=== PATIENT | female | born 1955 | race Caucasian/White ===

== ENCOUNTER → 2017-11-01 | Outpatient (CLI) | payer BC | END | disposition home or self-care (01) | LOC: NM 08:50 | DX: K90.0 Celiac disease (principal); E11.9 Type 2 diabetes mellitus without complications; Z79.01 Long term (current) use of anticoagulants; Z87.891 Personal history of nicotine dependence | CPT/HCPCS: 78452; 93017; 96374; 96376; A9500 ==

== ENCOUNTER 2017-11-07 06:34 | Inpatient (IN) | payer BC ==
[~2017-11-07] VITALS: Ht 162.6 cm; Wt 97.5 kg
[2017-11-07] VITALS (19 sets, daily range): BP systolic 83–158; BP diastolic 49–75
[2017-11-07] MEDS ORDERED: IODIXANOL 320 MG/ML 100 ML VIAL. ONE (07:10)
[2017-11-07] MEDS ORDERED: LIDOCAINE 1% PF 30 ML VIAL. ONE (07:10)
[2017-11-07] MEDS ORDERED: HEPARIN for ARTERIAL LINE 1,500 ML ONE (07:10)
[2017-11-07] MEDS ORDERED: MIDAZOLAM HCL/PF 5 MG/5 ML VIAL. ONE (07:19)
[2017-11-07] MEDS ORDERED: fentaNYL PF VIAL 100 MCG/2 ML VIAL ONE (07:19)
[2017-11-07] MEDS ORDERED: METF100010 PO (07:21)
[2017-11-07] MEDS ORDERED: OMEP20CA9 PO (07:21)
[2017-11-07] MEDS ORDERED: LEVO100T5 PO (07:21)
[2017-11-07] MEDS ORDERED: CHOL200074 PO (07:21)
[2017-11-07] MEDS ORDERED: LORA10TA55 PO (07:21)
[2017-11-07] MEDS ORDERED: ATORVASTATIN CA80 MG PO (07:21)
[2017-11-07] MEDS ORDERED: LORA10TA3 PO (07:21)
[2017-11-07] MEDS ORDERED: ASPI-630 PO (07:21)
[2017-11-07 07:30] LABS: HEMATOCRIT 41.1 % (36.0-47.0); HEMOGLOBIN 14.2 g/dL (12.0-15.5); RED BLOOD COUNT 4.88 x10^6/uL (3.50-5.40); RED CELL DISTRIBUTION WIDTH 13.5 % (11.5-14.5); WHITE BLOOD COUNT 6.5 x10^3/uL (4.0-11.0)
[2017-11-07] MEDS ORDERED: NITROGLYCERIN 200 MCG/2 ML SYRINGE FOR CATH/VASC LAB. ONE (07:31)
[2017-11-07] MEDS ORDERED: HEPARIN for IV BOLUS 10,000 UNIT/10 ML VIAL. ONE (07:31)
[2017-11-07] MEDS ORDERED: VERAPAMIL 5 MG/2 ML VIAL. ONE (07:31)
[2017-11-07 07:35] LABS: CALCIUM 9.5 mg/dL (8.5-10.1); CREATININE 0.7 mg/dL (0.6-1.0); GFR 84.2; POTASSIUM 4.2 mmol/L (3.5-5.1)
[2017-11-07 07:44] LABS: PROTHROMBIN TIME PATIENT 11.7 SEC (11.7-14.0)
--- NOTE | 2017-11-07 08:15 | PDOC ---
MODERATE SEDATION ASSESSMENT RISKS/ALTERNATIVES Risks/Alternatives Risks and alternatives of this type of sedation and procedure discussed with: RISK/ALTERNATIVES: Patient H & P ON CHART H & P H & P on chart and reviewed for co-morbid conditions and appropriate labs. H&P ON CHART: Yes STATUS PREG STATUS ASSESSED: Yes MEDS/ALLERGIES REVIEWED Meds/Allergies Reviewed Medications and Allergies including time and route of recently administered narcotics and sedatives. MEDS/ALLERGIES REVIEWED: Yes ASA RATING ASA RATING: II AIRWAY ASSESSMENT Airway Assessment Airway patency, oral function limitations, presence of caps, crowns, dentures, partials, and ability to extend neck assessed. AIRWAY ASSESSMENT: Yes MALLAMPATI SCORE MALLAMPATI SCORE: II PRE-SEDATION ASSESSMENT PRE-SEDATION ASSESSMENT: Yes BROOKE BETHEA MD Nov 07, 2017 08:15
[2017-11-07] MEDS ORDERED: fentaNYL PF VIAL 100 MCG/2 ML VIAL IV ONE (08:30)
[2017-11-07] MEDS ORDERED: CONTRAST GIVEN. MC PRN (08:30)
[2017-11-07] MEDS ORDERED: LIDOCAINE 2% 20 ML VIAL. IJ ONE (08:30)
[2017-11-07] MEDS ORDERED: MIDAZOLAM HCL/PF 5 MG/5 ML VIAL. IV ONE (08:30)
[2017-11-07] MEDS ORDERED: IODIXANOL 320 MG/ML 100 ML VIAL. IART ONE (08:30)
[2017-11-07] MEDS ORDERED: LIDOCAINE 1% PF 30 ML VIAL. INJ ONE (09:15)
[2017-11-07] MEDS ORDERED: 0.9 % SODIUM CHLORIDE 10 ML DISP.SYRIN. IV PRN (10:00)
[2017-11-07] MEDS ORDERED: NITROGLYCERIN SUBLINGUAL 0.4 MG BOTTLE OF 25. SL PRN (10:00)
[2017-11-07] MEDS ORDERED: LISINOPRIL 5 MG TABLET. PO SCH (10:15)
[2017-11-07] MEDS: LEVOTHYROXINE 100 MCG TABLET PO SCH (10:30)
[2017-11-07] MEDS: ACETAMINOPHEN 325 MG TABLET. PO PRN (10:31)
[2017-11-07] MEDS: METOPROLOL TART IMMED RELEASE 25 MG TABLET. PO SCH ×2 (10:31→20:59)
[2017-11-07] MEDS: IV NORMAL SALINE 1000ML BAG 1,000 ML IV SCH (10:33)
[2017-11-07] MEDS: ASPIRIN ENTERIC COATED 81 MG TABLET.DR. PO SCH (13:20)
--- NOTE | 2017-11-07 14:52 | PDOC2 ---
CONSULT Date of Consult Date of Consult DATE: 11/07/17 TIME: 14:32 Reason for Consult Reason for Consult: Angina Referring Physician Referring Physician: Dr Stewart Identification/Chief Complaint Chief Complaint Angina Source Source: Chart review, Patient History of Present Illness Reason for Visit: Patient is a 62 year female with a history of diabetes and strong family history of premature IHD and sudden cardiac who presents with stable angina. For the past 4 months she complains of atypical chest pain, SOB and fatigue, mostly on exertion. A subsequent MPI demonstrated reversible inferior ischemia. Check coronary angiogram today which demonstrated a very tight proximal to mid LAD stenosis and a tight mid RCA lesion. Her LV function is preserved. I was consulted to consider the patient for surgical coronary revascularization. Past Medical History Cardiovascular: Hyperlipidemia Pulmonary: No pertinent hx GI: No pertinent hx Hepatobiliary: No pertinent hx Psych: No pertinent hx Rheumatologic: No pertinent hx Infectious disease: No pertinent hx ENT: No pertinent hx Renal/: No pertinent hx Endocrine: Diabetes Dermatology: No pertinent hx Past Surgical History Past Surgical History: Family History Family History: Coronary Artery Disease Social History No ALCOHOL: none Drugs: None Lives: with Family Current Medications Current Medications Current Medications Iodixanol (Visipaque 320) 100 ml STK-MED ONCE .ROUTE ; Start 11/07/17 at 07:10; Stop 11/07/17 at 07:11; Status DC Lidocaine HCl (Lidocaine 1% Pf) 30 ml STK-MED ONCE .ROUTE ; Start 11/07/17 at 07: 10; Stop 11/07/17 at 07:11; Status DC Heparin Sodium/ Sodium Chloride 1,500 ml @ As Directed STK-MED ONCE .ROUTE ; Start 11/07/17 at 07:10; Stop 11/07/17 at 07:11; Status DC Fentanyl Citrate (Fentanyl 2ml Vial) 100 mcg STK-MED ONCE .ROUTE ; Start at 07:19; Stop 11/07/17 at 07:20; Status DC Midazolam HCl (Versed) 5 mg STK-MED ONCE .ROUTE ; Start 11/07/17 at 07:19; Stop 11/07/17 at 07:20; Status DC Heparin Sodium (Porcine) (Heparin Sodium) 10,000 unit STK-MED ONCE .ROUTE ; Start 11/07/17 at 07:31; Stop 11/07/17 at 07:33; Status DC Verapamil HCl (Verapamil) 5 mg STK-MED ONCE .ROUTE ; Start 11/07/17 at 07:31; Stop 11/07/17 at 07:33; Status DC Nitroglycerin (Nitroglycerin) 200 mcg STK-MED ONCE .ROUTE ; Start 11/07/17 at 07: 31; Stop 11/07/17 at 07:33; Status DC Heparin Sodium/ Sodium Chloride (HEPARIN for ARTERIAL LINE FLUSH) 1,000 unit 1X ONCE IART Last administered on 11/07/17at 09:06; Start 11/07/17 at 08:30; Stop 11/07/17 at 08:31; Status DC Heparin Sodium/ Sodium Chloride (HEPARIN for ARTERIAL LINE FLUSH) 1,000 unit 1X ONCE IART Last administered on 11/07/17at 09:06; Start 11/07/17 at 08:30; Stop 11/07/17 at 08:31; Status DC Midazolam HCl (Versed) 5 mg 1X ONCE IV Last administered on 11/07/17at 09:06; Start 11/07/17 at 08:30; Stop 11/07/17 at 08:31; Status DC Fentanyl Citrate (Fentanyl 2ml Vial) 100 mcg 1X ONCE IV Last administered on at 09:07; Start 11/07/17 at 08:30; Stop 11/07/17 at 08:31; Status DC Iodixanol (Visipaque 320) 100 ml 1X ONCE IART Last administered on 11/07/17at 09 :07; Start 11/07/17 at 08:30; Stop 11/07/17 at 08:31; Status DC Lidocaine HCl 20 ml 1X ONCE IJ ; Start 11/07/17 at 08:30; Stop 11/07/17 at 09:08 ; Status DC Info (CONTRAST GIVEN -- Rx MONITORING) 1 each PRN DAILY PRN MC SEE COMMENTS; Start 11/07/17 at 08:30; Stop 11/09/17 at 08:29 Lidocaine HCl (Lidocaine 1% Pf) 20 ml 1X ONCE INJ Last administered on at 09:15; Start 11/07/17 at 09:15; Stop 11/07/17 at 09:16; Status DC Sodium Chloride (Normal Saline Flush) 3 ml QSHIFT PRN IV AFTER MEDS AND BLOOD DRAWS; Start 11/07/17 at 10:00 Sodium Chloride 1,000 ml @ 60 mls/hr [id number] IV Last administered on 11/07/17at 10:33; Start 11/07/17 at 09:52 Aspirin (Ecotrin) 81 mg DAILYWBKFT PO Last administered on 11/07/17at 13:20; Start 11/07/17 at 10:15 Metoprolol Tartrate (Lopressor) 12.5 mg BID PO Last administered on 11/07/17at 10 :31; Start 11/07/17 at 10:15 Lisinopril (Prinivil) 5 mg DAILY PO Last administered on 11/07/17at 10:32; Start 11/07/17 at 10:15 Atorvastatin Calcium (Lipitor) 80 mg QHS PO ; Start 11/07/17 at 21:00 Acetaminophen (Tylenol) 650 mg PRN Q6HRS PRN PO MILD PAIN Last administered on 11/07/17at 10:31; Start 11/07/17 at 10:00 Nitroglycerin (Nitrostat) 0.4 mg PRN Q5MIN PRN SL CHEST PAIN; Start 11/07/17 at 10:00 Levothyroxine Sodium (Synthroid) 100 mcg DAILY06 PO ; Start 11/07/17 at 10:30 Active Scripts Active Reported Loratadine 10 Mg Tablet 1 Tab PO DAILY Loratadine 10 Mg Tab.rapdis 10 Mg PO Vitamin D-3 (Cholecalciferol (Vitamin D3)) 2,000 Unit Capsule 2,000 Unit PO Aspirin 81 Mg Tab.chew 1 Tab PO DAILY Omeprazole 20 Mg Capsule.dr 1 Cap PO DAILY Metformin Hcl Er (Metformin Hcl) 1,000 Mg Tab.er.24 1,000 Mg PO DAILYWBKFT Atorvastatin Calcium 80 Mg Tablet 80 Mg PO DAILY Levothyroxine Sodium 100 Mcg Tablet 100 Mcg PO DAILYAC Allergies Allergies: Coded Allergies: codeine (Verified Allergy, Intermediate, Rash, 11/07/17) ROS General: No: Chills, Night Sweats, Fatigue, Malaise, Appetite PSYCHOLOGICAL ROS: No: Anxiety, Behavioral Disorder, Concentration difficultie , Decreased libido, Depression, Disorientation, Hallucinations, Hostility, Irritablity, Memory difficulties, Mood Swings, Obsessive thoughts, Physical abuse, Sexual abuse, Sleep disturbances, Suicidal ideation Eyes: No Blurry vision, No Decreased vision, No Double vision, No Dry eyes, No Excessive tearing, No Eye Pain, No Itchy Eyes, No Loss of vision, No Photophobia , No Scotomata, No Uses contacts, No Uses glasses HEENT: No: Heacaches, Visual Changes, Hearing change, Nasal congestion, Nasal discharge, Oral lesions, Sinus pain, Sore Throat, Epistaxis, Sneezing, Snoring, Tinnitus, Vertigo, Vocal changes ALLERGY AND IMMUNOLOGY: No: Hives, Insect Bite Sensitivity, Itchy/Watery Eyes, Nasal Congestion, Post Nasal Drip, Seasonal Allergies Hematological and Lymphatic: No: Bleeding Problems, Blood Clots, Blood Transfusions, Brusing, Night Sweats, Pallor, Swollen Lymph Nodes ENDOCRINE: No: Breast Changes, Galactorrhea, Hair Pattern Changes, Hot Flashes , Malaise/lethargy, Mood Swings, Palpitations, Polydipsia/polyuria, Skin Changes , Temperature Intolerance, Unexpected Weight Changes Respiratory: YES: Shortness of breath; No: Cough, Hemoptysis, Orthopnea, Pleuritic Pain, SOB with excertion, Sputum Changes, Stridor, Tachypnea, Wheezing Cardiovascular: yes Chest Pain; No Palpitations, No Orthopnea, No Paroxysmal Noc. Dyspnea, No Edema, No Lt Headedness Gastrointestinal: No Nausea, No Vomiting, No Abdominal Pain, No Diarrhea, No Constipation, No Melena, No Hematochezia Genitourinary: No Dysuria, No Frequency, No Incontinence, No Hematuria, No Retention, No Discharge, No Urgency, No Pain, No Flank Pain Musculoskeletal: No Gait Disturbance, No Joint Pain, No Joint Stiffness, No Joint Swelling, No Muscle Pain, No Muscular Weakness, No Pain In:, No Swelling In: Neurological: No Behavorial Changes, No Bowel/Bladder ControlChng, No Confusion , No Dizziness, No Gait Disturbance, No Headaches, No Impaired Coord/balance, No Memory Loss, No Numbness/Tingling, No Seizures, No Speech Problems, No Tremors, No Visual Changes, No Weakness Skin: No Dry Skin, No Eczema, No Hair Changes, No Lumps, No Mole Changes, No Mottling, No Nail Changes, No Pruritus, No Rash, No Skin Lesion Changes, No Acne Physical Exam General: Alert, Oriented X3, No acute distress HEENT: Atraumatic, PERRLA Lungs: Clear to auscultation Heart: Regular rate, Normal S1, Normal S2, No murmurs Abdomen: Soft, No tenderness Skin: No significant lesion Neuro: Normal gait, Normal speech, Strength at 5/5 X4 ext, Normal tone, Sensation intact, Cranial nerves 3-12 NL, Reflexes 2+ Psych/Mental Status: Mental status NL MUSCULOSKELETAL: No deformity Vitals VITALS Vital Signs Date Time Temp Pulse Resp B/P (MAP) Pulse Ox O2 Delivery O2 Flow Rate FiO2 11/07/17 13:15 63 115/56 (75) 97 Room Air 11/07/17 11:04 98.0 18 98.0 Labs Labs Laboratory Tests Test 11/07/17 07:08 11/07/17 11:36 White Blood Count 6.5 x10^3/uL (4.0-11.0) Red Blood Count 4.88 x10^6/uL (3.50-5.40) Hemoglobin 14.2 g/dL (12.0-15.5) Hematocrit 41.1 % (36.0-47.0) Mean Corpuscular Volume 84 fL (79-100) Mean Corpuscular Hemoglobin 29 pg (25-35) Mean Corpuscular Hemoglobin Concent 35 g/dL (31-37) Red Cell Distribution Width 13.5 % (11.5-14.5) Platelet Count 287 x10^3/uL (140-400) Prothrombin Time 11.7 SEC (11.7-14.0) Prothromb Time International Ratio 0.9 (0.8-1.1) Sodium Level 138 mmol/L (136-145) Potassium Level 4.2 mmol/L (3.5-5.1) Chloride Level 104 mmol/L (98-107) Carbon Dioxide Level 27 mmol/L (21-32) Anion Gap 7 (6-14) Blood Urea Nitrogen 17 mg/dL (7-20) Creatinine 0.7 mg/dL (0.6-1.0) Estimated GFR (Cockcroft-Gault) 84.2 Glucose Level 132 mg/dL (70-99) Calcium Level 9.5 mg/dL (8.5-10.1) Glucose (Fingerstick) 111 mg/dL (70-99) Laboratory Tests Test 11/07/17 07:08 8/8/18 11:36 White Blood Count 6.5 x10^3/uL (4.0-11.0) Red Blood Count 4.88 x10^6/uL (3.50-5.40) Hemoglobin 14.2 g/dL (12.0-15.5) Hematocrit 41.1 % (36.0-47.0) Mean Corpuscular Volume 84 fL (79-100) Mean Corpuscular Hemoglobin 29 pg (25-35) Mean Corpuscular Hemoglobin Concent 35 g/dL (31-37) Red Cell Distribution Width 13.5 % (11.5-14.5) Platelet Count 287 x10^3/uL (140-400) Prothrombin Time 11.7 SEC (11.7-14.0) Prothromb Time International Ratio 0.9 (0.8-1.1) Sodium Level 138 mmol/L (136-145) Potassium Level 4.2 mmol/L (3.5-5.1) Chloride Level 104 mmol/L (98-107) Carbon Dioxide Level 27 mmol/L (21-32) Anion Gap 7 (6-14) Blood Urea Nitrogen 17 mg/dL (7-20) Creatinine 0.7 mg/dL (0.6-1.0) Estimated GFR (Cockcroft-Gault) 84.2 Glucose Level 132 mg/dL (70-99) Calcium Level 9.5 mg/dL (8.5-10.1) Glucose (Fingerstick) 111 mg/dL (70-99) Images Images MPI 1. Good exercise tolerance. 2. No EKG evidence of stress-induced ischemia. 3. Nuclear imaging shows a moderate area of reversible ischemia in the inferior lateral wall. 4. Left ventricular ejection fraction of 53%. 5. Moderate to moderately high risk Lexiscan nuclear stress test. Assessment/Plan Assessment/Plan 62-year-old female with diabetes and a strong family history of premature ischemic heart disease and sudden cardiac who presents with atypical symptoms and an MPI demonstrating reversible inferior ischemia. LHC demonstrated a 90% proximal to mid LAD stenosis, and a 90% lesion in the proximal RCA. LV function is preserved. Given the patient's tight proximal LAD stenosis and history of diabetes, I think CABG would be a reasonable option. I discussed the risks which include but are not limited to mortality 1%, stroke 1%, renal failure and requiring dialysis 1%, VDRF 5%, wound infection 5%, pneumonia 5%, re-sternotomy for bleeding 5%, perioperative FL 5%, arrhythmias/H fibrillation 20-30%. The patient would like to consider her options, although she appears to be leaning towards CABG. If she agrees to CABG we will proceed on Thursday, November 092017. Will obtain a echo, carotid duplex, noncontrast CT chest, vein mapping. She will need two grafts, CLARK to LAD, SVG to RCA. GLORY TAVARES MD Nov 07, 2017 14:52
[2017-11-07] MEDS: PANTOPRAZOLE 40 MG TABLET.DR. PO SCH (15:00)
[2017-11-07] MEDS: CETIRIZINE HCL 10 MG TABLET. PO SCH (15:00)
[2017-11-07] MEDS ORDERED: DEXTROSE 50% 25 GM / 50ML DISP.SYRIN. IV PRN (16:00)
[2017-11-07 16:14] LABS: BASO % 1 % (0-3); EOS # 0.1 x10^3/uL (0.0-0.7); EOS % 1 % (0-3); HEMATOCRIT 40.5 % (36.0-47.0); HEMOGLOBIN 13.6 g/dL (12.0-15.5); LYMPH % 38 % (24-48); MEAN CORPUSCULAR HEMOGLOBIN 28 pg (25-35); MEAN CORPUSCULAR HGB CONC 34 g/dL (31-37); MEAN CORPUSCULAR VOLUME 84 fL (79-100); MONO # 0.8 x10^3/uL (0.0-1.1); MONO % 10 % (0-9); NEUT # 3.9 x10^3uL (1.8-7.7); NEUT % 50 % (31-73); PLATELET COUNT 274 x10^3/uL (140-400); RED BLOOD COUNT 4.81 x10^6/uL (3.50-5.40); WHITE BLOOD COUNT 7.8 x10^3/uL (4.0-11.0)
[2017-11-07] MEDS ORDERED: HEPARIN for IV BOLUS 10,000 UNIT/10 ML VIAL. IV PRN (16:45)
--- NOTE | 2017-11-07 16:50 | CARD ---
MR#: [id number] Date of Study: 11/07/2017 Ordering Physician: BROOKE STEWART, Referring Physician: BROOKE STEWART, Tech: Diana Batista, RT (R) APPROVED REPORT Procedures Left heart catheterization Selective coronary angiogram Left ventriculogram The patient is a 62-year-old female who was seen for episodes of increasing dyspnea on exertion. She has risk factors of diabetes, hyperlipidemia, hypertension and a strong family history of early coron ramana disease. Nuclear stress testing was abnormal. Cardiac catheterization was recommended. Risks and benefits were discussed with the patient. She agreed to proceed. After informed consent was obtained the patient was brought to the heart catheterization lab. The are a of the right femoral artery was prepared in the usual manner with Betadine, sterile draping and loc al anesthetic. An 18-gauge needle was used to enter the right femoral artery, a wire placed the 6 [facility] sheath placed over the wire. Using a standard J-wire, a JL4 diagnostic catheter was advanced to t he ascending aorta. It was used to engage the left coronary system and sequential injections in vario us views were obtained. In a similar manner a 6 Malay Len right diagnostic catheter was used to engage the right coronary artery and sequential injections in various views were obtained. A pigtail catheter was advanced to the ascending aorta and then the left ventricle. Pressure measurements were obtained. A 30 PORRAS left ventriculogram was performed. Pullback pressures were obtained. The cathete r was removed from the patient. Injection of the sheath showed normal placement. The sheath was remov ed and sealed with an Angio-Seal product. The patient was then moved to the holding area in stable co ndition. Findings. Hemodynamics. LV pressure 130/6, 12 Aortic root pressure 128/60. Coronaries. The left main was a normal-size vessel with no lesions. Left anterior descending. The LAD was a mildly calcified vessel. It normal distribution. It had mid g reater than 95% eccentric lesion present. Left circumflex. The left circumflex is a moderate size vessel. It had distal small vessel disease. Right coronary artery. The right coronary was a moderate size vessel. It had a subtotal mid lesion. Left ventriculogram. Left ventricular systolic function appeared to have mild anterior wall hypokinesis. Ejection fraction was estimated at 50%. <Conclusion> Multivessel coronary artery disease in a diabetic patient including a severe LAD lesion. Subtotal right coronary artery lesion. Intact LV systolic function. Signed by : Brooke Stewart MD Electronically Approved : 11/07/2017 16:48:36
[2017-11-07] MEDS: INSULIN LISPRO 300 UNITS/3 ML INSULN.PEN. SQ SCH (17:00)
--- NOTE | 2017-11-07 17:44 | PDOC1 ---
History and Physical Visit Information Date of Admission: Nov 07, 2017 at 08:55 Source: Patient History of Present Illness History of Present Illness The patient is a pleasant 62-year-old female with recent episodes of increasing dyspnea on exertion and one episode of chest discomfort. Patient has multiple risk factors including diabetes, hypertension, hyperlipidemia and a strong family history of early coronary disease. We therefore proceeded after reviewing her in the office to a stress test. The patient's Lexiscan nuclear stress test was abnormal. She therefore underwent cardiac catheterization this morning. Catheterization showed a subtotal RCA lesion as well as a greater than 95% LAD lesion in the mid portion. LV systolic function was intact. Patient had diffuse small vessel distal disease consistent with her diabetes. She has been admitted for monitoring and evaluation by cardiovascular surgery. Cardiac Risk Factors Cardiac Risk Factors: Hypertension, Diabetes, Hyperlipidemia, Family History Past Medical History Cardiovascular: CAD, HTN, Hyperlipidemia Past Surgical History Past Surgical History: , Other (thyroid surgery) Current Medications Current Medications Current Medications Acetaminophen (Tylenol) 650 mg PRN Q6HRS PRN PO MILD PAIN Last administered on 11/07/17at 10:31; Start 11/07/17 at 10:00 Aspirin (Ecotrin) 81 mg DAILYWBKFT PO Last administered on 11/07/17at 13:20; Start 11/07/17 at 10:15 Atorvastatin Calcium (Lipitor) 80 mg QHS PO ; Start 11/07/17 at 21:00 Cefazolin Sodium/ Dextrose 50 ml @ 100 mls/hr 1X ONCE IV ; Start 11/09/17 at 06:00; Stop 11/09/17 at 06:29 Cetirizine HCl (ZyrTEC) 10 mg DAILY PO ; Start 11/07/17 at 15:00 Dextrose (Dextrose 50%-Water Syringe) 12.5 gm PRN Q15MIN PRN IV SEE COMMENTS; Start 11/07/17 at 16:00 Fentanyl Citrate (Fentanyl 2ml Vial) 100 mcg 1X ONCE IV Last administered on at 09:07; Start 11/07/17 at 08:30; Stop 11/07/17 at 08:31; Status DC Fentanyl Citrate (Fentanyl 2ml Vial) 100 mcg STK-MED ONCE .ROUTE ; Start at 07:19; Stop 11/07/17 at 07:20; Status DC Heparin Sodium (Porcine) (Heparin Sodium) 2,300 unit PRN Q6HRS PRN IV FOR UFH LEVEL LESS THAN 0.2; Start 11/07/17 at 16:45 Heparin Sodium (Porcine) (Heparin Sodium) 10,000 unit STK-MED ONCE .ROUTE ; Start 11/07/17 at 07:31; Stop 11/07/17 at 07:33; Status DC Heparin Sodium/ Dextrose 500 ml @ 0 mls/hr CONT PRN IV SEE I/O RECORD; Start at 16:45 Heparin Sodium/ Sodium Chloride 1,500 ml @ As Directed STK-MED ONCE .ROUTE ; Start 11/07/17 at 07:10; Stop 11/07/17 at 07:11; Status DC Heparin Sodium/ Sodium Chloride (HEPARIN for ARTERIAL LINE FLUSH) 1,000 unit 1X ONCE IART Last administered on 11/07/17at 09:06; Start 11/07/17 at 08:30; Stop 11/07/17 at 08:31; Status DC Heparin Sodium/ Sodium Chloride (HEPARIN for ARTERIAL LINE FLUSH) 1,000 unit 1X ONCE IART Last administered on 11/07/17at 09:06; Start 11/07/17 at 08:30; Stop 11/07/17 at 08:31; Status DC Info (CONTRAST GIVEN -- Rx MONITORING) 1 each PRN DAILY PRN MC SEE COMMENTS; Start 11/07/17 at 08:30; Stop 11/09/17 at 08:29 Insulin Human Lispro (HumaLOG) 0-5 UNITS TIDWMEALS SQ ; Start 11/07/17 at 17:00 Iodixanol (Visipaque 320) 100 ml 1X ONCE IART Last administered on 11/07/17at 09 :07; Start 11/07/17 at 08:30; Stop 11/07/17 at 08:31; Status DC Iodixanol (Visipaque 320) 100 ml STK-MED ONCE .ROUTE ; Start 11/07/17 at 07:10; Stop 11/07/17 at 07:11; Status DC Levothyroxine Sodium (Synthroid) 100 mcg DAILY06 PO ; Start 11/07/17 at 10:30 Lidocaine HCl 20 ml 1X ONCE IJ ; Start 11/07/17 at 08:30; Stop 11/07/17 at 09:08 ; Status DC Lidocaine HCl (Lidocaine 1% Pf) 20 ml 1X ONCE INJ Last administered on at 09:15; Start 11/07/17 at 09:15; Stop 11/07/17 at 09:16; Status DC Lidocaine HCl (Lidocaine 1% Pf) 30 ml STK-MED ONCE .ROUTE ; Start 11/07/17 at 07: 10; Stop 11/07/17 at 07:11; Status DC Lisinopril (Prinivil) 5 mg DAILY PO Last administered on 11/07/17at 10:32; Start 11/07/17 at 10:15; Stop 11/07/17 at 14:40; Status DC Metoprolol Tartrate (Lopressor) 12.5 mg BID PO Last administered on 11/07/17at 10 :31; Start 11/07/17 at 10:15; Stop 11/08/17 at 22:00 Midazolam HCl (Versed) 5 mg 1X ONCE IV Last administered on 11/07/17at 09:06; Start 11/07/17 at 08:30; Stop 11/07/17 at 08:31; Status DC Midazolam HCl (Versed) 5 mg STK-MED ONCE .ROUTE ; Start 11/07/17 at 07:19; Stop 11/07/17 at 07:20; Status DC Nitroglycerin (Nitroglycerin) 200 mcg STK-MED ONCE .ROUTE ; Start 11/07/17 at 07: 31; Stop 11/07/17 at 07:33; Status DC Nitroglycerin (Nitrostat) 0.4 mg PRN Q5MIN PRN SL CHEST PAIN; Start 11/07/17 at 10:00 Pantoprazole Sodium (Protonix) 40 mg DAILYAC PO ; Start 11/07/17 at 15:00 Sodium Chloride 1,000 ml @ 60 mls/hr [id number] IV Last administered on 11/07/17at 10:33; Start 11/07/17 at 09:52 Sodium Chloride (Normal Saline Flush) 3 ml QSHIFT PRN IV AFTER MEDS AND BLOOD DRAWS; Start 11/07/17 at 10:00 Verapamil HCl (Verapamil) 5 mg STK-MED ONCE .ROUTE ; Start 11/07/17 at 07:31; Stop 11/07/17 at 07:33; Status DC Zolpidem Tartrate (Ambien) 5 mg PRN QHS PRN PO INSOMNIA, MAY REPEAT IN 1HR; Start 11/07/17 at 15:45 Allergies Allergies Allergies Coded Allergies Type Severity Reaction Last Updated Verified codeine Allergy Intermediate Rash 11/07/17 Yes Social History Smoke: No Family History Family History: Coronary Artery Disease ROS Respiratory: YES: SOB with excertion Cardiovascular: yes Chest Pain Physical Exam General: No acute distress HEENT: Atraumatic Lungs: Clear to auscultation Heart: Regular rate CHEST: Clear to auscultation Abdomen: Normal bowel sounds Vitals VITALS Vital Signs Date Time Temp Pulse Resp B/P (MAP) Pulse Ox O2 Delivery O2 Flow Rate FiO2 11/07/17 15:00 97.8 64 18 132/66 (88) 98 Room Air 97.8 Labs Labs Laboratory Tests Test 11/07/17 07:08 11/07/17 11:36 11/07/17 16:05 11/07/17 16:51 White Blood Count 6.5 x10^3/uL (4.0-11.0) 7.8 x10^3/uL (4.0-11.0) Red Blood Count 4.88 x10^6/uL (3.50-5.40) 4.81 x10^6/uL (3.50-5.40) Hemoglobin 14.2 g/dL (12.0-15.5) 13.6 g/dL (12.0-15.5) Hematocrit 41.1 % (36.0-47.0) 40.5 % (36.0-47.0) Mean Corpuscular Volume 84 fL (79-100) 84 fL (79-100) Mean Corpuscular Hemoglobin 29 pg (25-35) 28 pg (25-35) Mean Corpuscular Hemoglobin Concent 35 g/dL (31-37) 34 g/dL (31-37) Red Cell Distribution Width 13.5 % (11.5-14.5) 14.0 % (11.5-14.5) Platelet Count 287 x10^3/uL (140-400) 274 x10^3/uL (140-400) Prothrombin Time 11.7 SEC (11.7-14.0) Prothromb Time International Ratio 0.9 (0.8-1.1) Sodium Level 138 mmol/L (136-145) Potassium Level 4.2 mmol/L (3.5-5.1) Chloride Level 104 mmol/L (98-107) Carbon Dioxide Level 27 mmol/L (21-32) Anion Gap 7 (6-14) Blood Urea Nitrogen 17 mg/dL (7-20) Creatinine 0.7 mg/dL (0.6-1.0) Estimated GFR (Cockcroft-Gault) 84.2 Glucose Level 132 mg/dL (70-99) Calcium Level 9.5 mg/dL (8.5-10.1) Glucose (Fingerstick) 111 mg/dL (70-99) 115 mg/dL (70-99) Neutrophils (%) (Auto) 50 % (31-73) Lymphocytes (%) (Auto) 38 % (24-48) Monocytes (%) (Auto) 10 % (0-9) Eosinophils (%) (Auto) 1 % (0-3) Basophils (%) (Auto) 1 % (0-3) Neutrophils # (Auto) 3.9 x10^3uL (1.8-7.7) Lymphocytes # (Auto) 3.0 x10^3/uL (1.0-4.8) Monocytes # (Auto) 0.8 x10^3/uL (0.0-1.1) Eosinophils # (Auto) 0.1 x10^3/uL (0.0-0.7) Basophils # (Auto) 0.0 x10^3/uL (0.0-0.2) Laboratory Tests Test 11/07/17 07:08 11/07/17 11:36 11/07/17 16:05 11/07/17 16:51 White Blood Count 6.5 x10^3/uL (4.0-11.0) 7.8 x10^3/uL (4.0-11.0) Red Blood Count 4.88 x10^6/uL (3.50-5.40) 4.81 x10^6/uL (3.50-5.40) Hemoglobin 14.2 g/dL (12.0-15.5) 13.6 g/dL (12.0-15.5) Hematocrit 41.1 % (36.0-47.0) 40.5 % (36.0-47.0) Mean Corpuscular Volume 84 fL (79-100) 84 fL (79-100) Mean Corpuscular Hemoglobin 29 pg (25-35) 28 pg (25-35) Mean Corpuscular Hemoglobin Concent 35 g/dL (31-37) 34 g/dL (31-37) Red Cell Distribution Width 13.5 % (11.5-14.5) 14.0 % (11.5-14.5) Platelet Count 287 x10^3/uL (140-400) 274 x10^3/uL (140-400) Prothrombin Time 11.7 SEC (11.7-14.0) Prothromb Time International Ratio 0.9 (0.8-1.1) Sodium Level 138 mmol/L (136-145) Potassium Level 4.2 mmol/L (3.5-5.1) Chloride Level 104 mmol/L (98-107) Carbon Dioxide Level 27 mmol/L (21-32) Anion Gap 7 (6-14) Blood Urea Nitrogen 17 mg/dL (7-20) Creatinine 0.7 mg/dL (0.6-1.0) Estimated GFR (Cockcroft-Gault) 84.2 Glucose Level 132 mg/dL (70-99) Calcium Level 9.5 mg/dL (8.5-10.1) Glucose (Fingerstick) 111 mg/dL (70-99) 115 mg/dL (70-99) Neutrophils (%) (Auto) 50 % (31-73) Lymphocytes (%) (Auto) 38 % (24-48) Monocytes (%) (Auto) 10 % (0-9) Eosinophils (%) (Auto) 1 % (0-3) Basophils (%) (Auto) 1 % (0-3) Neutrophils # (Auto) 3.9 x10^3uL (1.8-7.7) Lymphocytes # (Auto) 3.0 x10^3/uL (1.0-4.8) Monocytes # (Auto) 0.8 x10^3/uL (0.0-1.1) Eosinophils # (Auto) 0.1 x10^3/uL (0.0-0.7) Basophils # (Auto) 0.0 x10^3/uL (0.0-0.2) Images Images Abnormal Lexiscan nuclear stress test. ECG Comments EKG with a sinus rhythm and nonspecific ST segment changes. VTE Prophylaxis Ordered VTE Prophylaxis Devices: No VTE Pharmacological Prophylaxi: Yes Assessment/Plan Assessment/Plan 1. Multivessel coronary disease including an LAD lesion. Intact LV systolic function. Diabetes as well as other risk factors as outlined above. We will admit for evaluation by CV surgery for possible bypass surgery. 2. Diabetes mellitus. We'll continue present medications. 3. Hyperlipidemia. We'll continue statins and check lab. 4. Hypertension. Patient's blood pressure is under control. Will continue to monitor. 5. History of previous thyroid surgery. We'll continue on Synthroid 100 g by mouth daily. BROOKE BETHEA MD Nov 07, 2017 17:44
[2017-11-07] MEDS: HEPARIN 25,000UTS/500ML PREMIX 500 ML IV PRN (18:28)
[2017-11-07 20:20] LABS: BILIRUBIN,URINE NEGATIVE (NEG); CLARITY,URINE CLEAR; COLOR,URINE YELLOW; NITRITE,URINE NEGATIVE (NEG); PROTEIN,URINE NEGATIVE (NEG-TRACE); UROBILINOGEN,URINE 0.2 mg/dL (0.2 mg/dL)
[2017-11-07 20:29] LABS: BACTERIA,URINE 0 /HPF (0-FEW); RBC,URINE OCC /HPF (0-2); SQUAMOUS EPITHELIAL CELL,UR FEW /LPF; WBC,URINE RARE /HPF (0-4)
[2017-11-07] MEDS: ATORVASTATIN CALCIUM 20 MG TABLET PO SCH (20:54)
[2017-11-07] MEDS: ZOLPIDEM 5 MG TABLET. PO PRN (21:10)
[2017-11-08] VITALS (7 sets, daily range): BP systolic 98–144; BP diastolic 55–73
[2017-11-08] MEDS: IV NORMAL SALINE 1000ML BAG 1,000 ML IV SCH (02:32)
[2017-11-08] MEDS: LEVOTHYROXINE 100 MCG TABLET PO SCH (06:21)
[2017-11-08] MEDS: ACETAMINOPHEN 325 MG TABLET. PO PRN (06:25)
[2017-11-08] MEDS: INSULIN LISPRO 300 UNITS/3 ML INSULN.PEN. SQ SCH ×3 (08:00→17:00)
--- NOTE | 2017-11-08 08:19 | RAD ---
PQRS Compliance Statement: One or more of the following individualized dose reduction techniques were utilized for this examination: 1. Automated exposure control 2. Adjustment of the mA and/or kV according to patient size 3. Use of iterative reconstruction technique CT chest without contrast 11/08/2017 INDICATION: CABG. Chest pain. COMPARISON: None available. TECHNIQUE: Multiple axial CT images of the chest were obtained without intravenous contrast. Coronal and sagittal reformats are provided. FINDINGS: The thyroid gland is normal in appearance. There are no pathologically enlarged lymph nodes in the axilla, mediastinum or hilar regions. Heart size is within normal limits. Three-vessel coronary artery vascular calcifications are present. There is no pericardial effusion. Thoracic aorta is normal in caliber. There are no pulmonary infiltrates. There are no pleural effusions. There is no pulmonary vascular congestion. No pneumothorax. There is a 4.5 mm solid noncalcified pulmonary nodule abutting the major fissure in the inferior lingula. Evaluation of the solid abdominal viscera is limited by lack of intravenous contrast. No suspicious abnormalities identified within the visualized portions of the upper abdomen. No suspicious osseous abnormalities visualized. There is bridging anterior marginal osteophytosis in the mid thoracic spine. IMPRESSION: 1. Three-vessel coronary artery vascular calcifications are present. Thoracic aorta is normal in course and caliber. 2. There is a 4.5 mm solid noncalcified pulmonary nodule abutting the major fissure in the inferior lingula. Please refer to the Fleischner 2017 pulmonary nodule guidelines for follow-up recommendations specific to this patient. Electronically signed by: Emerald Lindo MD (11/08/2017 8:15 AM) [id number]
[2017-11-08 08:26] LABS: HEMATOCRIT 40.8 % (36.0-47.0); HEMOGLOBIN 13.9 g/dL (12.0-15.5); RED BLOOD COUNT 4.82 x10^6/uL (3.50-5.40); RED CELL DISTRIBUTION WIDTH 14.1 % (11.5-14.5); WHITE BLOOD COUNT 7.4 x10^3/uL (4.0-11.0)
[2017-11-08 08:59] LABS: ALBUMIN 3.3 g/dL (3.4-5.0); ALBUMIN/GLOBULIN RATIO 0.9 (1.0-1.7); CALCIUM 8.9 mg/dL (8.5-10.1); CREATININE 0.7 mg/dL (0.6-1.0); DIRECT BILIRUBIN 0.1 mg/dL (0.0-0.2); GFR 84.2; POTASSIUM 3.9 mmol/L (3.5-5.1); TOTAL BILIRUBIN 0.4 mg/dL (0.2-1.0); TOTAL PROTEIN 7.1 g/dL (6.4-8.2)
[2017-11-08 09:02] LABS: CHOLESTEROL/HDL RATIO 2.8
[2017-11-08] MEDS: CETIRIZINE HCL 10 MG TABLET. PO SCH (09:35)
[2017-11-08] MEDS: ASPIRIN ENTERIC COATED 81 MG TABLET.DR. PO SCH (09:35)
[2017-11-08] MEDS: PANTOPRAZOLE 40 MG TABLET.DR. PO SCH (09:35)
[2017-11-08] MEDS: METOPROLOL TART IMMED RELEASE 25 MG TABLET. PO SCH ×2 (09:37→20:51)
--- NOTE | 2017-11-08 11:22 | PDOC ---
CARDIO Progress Notes Date and Time Date of Service 11/08/2017 Time of Evaluation 1120 Subjective Subjective: No Chest Pain, No shortness of breath, No Palpitations, No Dizziness Vitals Vitals Vital Signs Date Time Temp Pulse Resp B/P (MAP) Pulse Ox O2 Delivery O2 Flow Rate FiO2 11/08/17 09:37 64 104/59 11/08/17 07:00 98.6 18 96 Room Air 98.6 Weight Weight [ ] Input and Output Intake and Output Intake and Output 11/08/17 07:00 Intake Total 1495.32 ml Output Total 550 ml Balance 945.32 ml Intake Oral 750 ml IV Total 745.32 ml Output Urine Total 550 ml # Voids 1 Laboratory Labs Laboratory Tests Test 11/07/17 11:36 11/07/17 16:05 11/07/17 16:51 11/07/17 17:50 Glucose (Fingerstick) 111 mg/dL (70-99) 115 mg/dL (70-99) White Blood Count 7.8 x10^3/uL (4.0-11.0) Red Blood Count 4.81 x10^6/uL (3.50-5.40) Hemoglobin 13.6 g/dL (12.0-15.5) Hematocrit 40.5 % (36.0-47.0) Mean Corpuscular Volume 84 fL (79-100) Mean Corpuscular Hemoglobin 28 pg (25-35) Mean Corpuscular Hemoglobin Concent 34 g/dL (31-37) Red Cell Distribution Width 14.0 % (11.5-14.5) Platelet Count 274 x10^3/uL (140-400) Neutrophils (%) (Auto) 50 % (31-73) Lymphocytes (%) (Auto) 38 % (24-48) Monocytes (%) (Auto) 10 % (0-9) Eosinophils (%) (Auto) 1 % (0-3) Basophils (%) (Auto) 1 % (0-3) Neutrophils # (Auto) 3.9 x10^3uL (1.8-7.7) Lymphocytes # (Auto) 3.0 x10^3/uL (1.0-4.8) Monocytes # (Auto) 0.8 x10^3/uL (0.0-1.1) Eosinophils # (Auto) 0.1 x10^3/uL (0.0-0.7) Basophils # (Auto) 0.0 x10^3/uL (0.0-0.2) Urine Collection Type Unknown Urine Color Yellow Urine Clarity Clear Urine pH 7.0 Urine Specific [place] 1.015 Urine Protein Negative mg/dL (NEG-TRACE) Urine Glucose (UA) Negative mg/dL (NEG) Urine Ketones (Stick) Negative mg/dL (NEG) Urine Blood Negative (NEG) Urine Nitrite Negative (NEG) Urine Bilirubin Negative (NEG) Urine Urobilinogen Dipstick 0.2 mg/dL (0.2 mg/dL) Urine Leukocyte Esterase Negative (NEG) Urine RBC Occ /HPF (0-2) Urine WBC Rare /HPF (0-4) Urine Squamous Epithelial Cells Few /LPF Urine Bacteria 0 /HPF (0-FEW) Test 11/07/17 20:53 11/08/17 00:15 11/08/17 07:25 11/08/17 07:45 Glucose (Fingerstick) 141 mg/dL (70-99) 110 mg/dL (70-99) Heparin Anti-Xa Act, Unfractionated 0.24 IU/mL (0.30-0.70) 0.59 IU/mL (0.30-0.70) White Blood Count 7.4 x10^3/uL (4.0-11.0) Red Blood Count 4.82 x10^6/uL (3.50-5.40) Hemoglobin 13.9 g/dL (12.0-15.5) Hematocrit 40.8 % (36.0-47.0) Mean Corpuscular Volume 85 fL (79-100) Mean Corpuscular Hemoglobin 29 pg (25-35) Mean Corpuscular Hemoglobin Concent 34 g/dL (31-37) Red Cell Distribution Width 14.1 % (11.5-14.5) Platelet Count 283 x10^3/uL (140-400) Sodium Level 141 mmol/L (136-145) Potassium Level 3.9 mmol/L (3.5-5.1) Chloride Level 105 mmol/L (98-107) Carbon Dioxide Level 27 mmol/L (21-32) Anion Gap 9 (6-14) Blood Urea Nitrogen 12 mg/dL (7-20) Creatinine 0.7 mg/dL (0.6-1.0) Estimated GFR (Cockcroft-Gault) 84.2 BUN/Creatinine Ratio 17 (6-20) Glucose Level 137 mg/dL (70-99) Calcium Level 8.9 mg/dL (8.5-10.1) Total Bilirubin 0.4 mg/dL (0.2-1.0) Direct Bilirubin 0.1 mg/dL (0.0-0.2) Aspartate Amino Transf (AST/SGOT) 21 U/L (15-37) Alanine Aminotransferase (ALT/SGPT) 24 U/L (14-59) Alkaline Phosphatase 70 U/L (46-116) Total Protein 7.1 g/dL (6.4-8.2) Albumin 3.3 g/dL (3.4-5.0) Albumin/Globulin Ratio 0.9 (1.0-1.7) Triglycerides Level 88 mg/dL (0-150) Cholesterol Level 164 mg/dL (0-200) LDL Cholesterol, Calculated 88 mg/dL (0-100) VLDL Cholesterol, Calculated 18 mg/dL (0-40) Non-HDL Cholesterol Calculated 106 mg/dL (0-129) HDL Cholesterol 58 mg/dL (40-60) Cholesterol/HDL Ratio 2.8 Thyroid Stimulating Hormone (TSH) 1.666 uIU/mL (0.358-3.74) Physical Exam HEENT: Neck Supple W Full Motion Chest: Symmetric, Non Tender LUNGS: Clear to Auscultation Heart: S1S2, RRR Abdomen: Soft N/T Extremities: No Edema Neurology: alert, oriented, follow commands Assessment Assessment 1. Multivessel coronary disease including an LAD lesion. --for CABG tomorrow --evaluation in progress 2. Diabetes mellitus --metformin on hold --on low dose SSI 3. Hyperlipidemia --LDLs controlled --continue statin therapy 4. Hypertension --controlled with oral meds 5. Surgical hypothyroidism --continue replacement therapy 7. solitary pulmonary nodule --4.[address] scan --repeat CT scan in 6 months advised ALAN MEYERS APRN Nov 08, 2017 11:22
[2017-11-08] MEDS ORDERED: ALPRAZolam 0.25 MG TABLET PO PRN (11:30)
--- NOTE | 2017-11-08 13:07 | CARD ---
MR#: [id number] Date of Study: 11/08/2017 Ordering Physician: ALAN MEYERS, Referring Physician: BROOKE STEWART, Tech: Elizabeth Batista [facility] APPROVED REPORT EXAM: Two-dimensional and M-mode echocardiogram with Doppler and color Doppler. Other Information Quality : Fair INDICATION Cardiac Disease: CAD Pre-Op CABG 2D DIMENSIONS RVDd2.0 (2.9-3.5cm)Left Atrium(2D)3.3 (1.6-4.0cm) IVSd0.8 (0.7-1.1cm)Aortic Root(2D)3.0 (2.0-3.7cm) LVDd5.2 (3.9-5.9cm)LVOT Diameter2.3 (1.8-2.4cm) PWd1.1 (0.7-1.1cm)LVDs3.4 (2.5-4.0cm) FS (%) 30.0 %SV82.3 ml Aortic Valve AoV Peak Fito.115.2cm/sAoV VTI23.9cm AO Peak GR.5.3mmHgLVOT VTI 18.81cm AO Mean GR.3mmHgAVA (VTI)3.30cm2 Mitral Valve MV E Lnvjitja40.4cm/sMV DECEL GOUN777ye MV A Eknhqekg72.1cm/sE/A Ratio0.7 TDI Lateral E' P. V6.95cm/sMedial E' P. V5.47cm/s E/Lateral E'9.1E/Medial E'11.6 Pulmonary Vein S1 Dvmluety07.5cm/sS2 Xboberwp00.11cm/s D2 Xbjohahp15.1cm/s LEFT VENTRICLE The left ventricle is normal size. There is normal left ventricular wall thickness. Left ventricle sy stolic function is mildly impaired. The Ejection Fraction is estimated at 40%. There is mild global h ypokinesis of the left ventricle. Transmitral Doppler flow pattern is Grade I-abnormal relaxation pat tern. RIGHT VENTRICLE The right ventricle is normal size. The right ventricular systolic function is normal. ATRIA The left atrium size is normal. The right atrium size is normal. The interatrial septum is intact wit h no evidence for an atrial septal defect or patent foramen ovale as noted on 2-D or Doppler imaging. AORTIC VALVE The aortic valve is not well visualized but does appear trileaflet. Doppler and Color Flow revealed n o significant aortic regurgitation. There is no significant aortic valvular stenosis. MITRAL VALVE The mitral valve is calcified but opens well. Mitral annular calcification is mild. There is no evide nce of mitral valve prolapse. There is no mitral valve stenosis. Doppler and Color-flow revealed trac e mitral regurgitation. TRICUSPID VALVE The tricuspid valve is normal in structure and function. Doppler and Color Flow revealed trace tricus pid regurgitation. There is no tricuspid valve stenosis. PULMONIC VALVE The pulmonic valve is not well visualized. Doppler and Color Flow revealed no pulmonic valvular regur gitation. There is no pulmonic valvular stenosis. GREAT VESSELS The aortic root is normal in size. The ascending aorta is not well seen. The IVC is normal in size an d collapses >50% with inspiration. PERICARDIAL EFFUSION There is no evidence of significant pericardial effusion. Critical Notification Critical Value: No <Conclusion> The left ventricle is normal size. Left ventricle systolic function is mildly impaired. The Ejection Fraction is estimated at 40%. There is mild global hypokinesis of the left ventricle. There is no significant aortic valvular stenosis. Doppler and Color Flow revealed no significant aortic regurgitation. Doppler and Color-flow revealed trace mitral regurgitation. Doppler and Color Flow revealed trace tricuspid regurgitation. Signed by : Brooke Stewart MD Electronically Approved : 11/08/2017 13:06:10
--- NOTE | 2017-11-08 14:00 | RAD ---
Clinical Indications: Preop CABG. Exam : Carotid Duplex with Grayscale Ultrasound and Spectral and Color Doppler Analysis: PQRS Compliance Statement - Stenosis calculations for CT, MR and conventional angiography are based upon measurement of the distal ICA diameter in accordance with the NASCET methodology. Stenosis calculations for carotid ultrasound studies are derived from validated velocity criteria which are known to correlate with the NASCET methodology. Comparison study: None available. Findings: The common, internal and external carotid arteries were examined by grayscale, color and spectral Doppler ultrasound. Mild atherosclerotic calcifications identified in the bilateral common carotid arteries and the internal carotid arteries. Flow in both vertebral arteries was antegrade and normal. The following are the velocities and ratios in the carotid arteries on both sides: RIGHT ICA PV: 87cm/sec RIGHT CCA PV: 111cm/sec RIGHT ICA ED: 32cm/sec RIGHT IC/CCPV: 0.78 RIGHT VERTEBRAL: antegrade flow RIGHT % STENOSIS: Less than 50% LEFT ICA PV: 77cm/sec LEFT CCA PV: 81cm/sec LEFT ICA ED: 30cm/sec LEFT IC/CCPV: 0.95 LEFT VERTEBRAL: antegrade flow LEFT % STENOSIS: Less than 50% <50% ICA Stenosis: PSV < 125cm/s (EDV < 40cm/s; SVR < 2.0) 50-69% ICA Stenosis: PSV < 125-229cm/s (EDV 40-99cm/s; SVR 2.0-3.9) >70% ICA Stenosis: PSV > 230cm/s (EDV >100cm/s; SVR >4.0) Impression: 1. No evidence of hemodynamically significant stenosis. Electronically signed by: Theodore Salinas MD (11/08/2017 1:57 PM) [id number]
--- NOTE | 2017-11-08 14:04 | RAD ---
Ultrasound vein mapping bilateral lower extremities November 08, 2017 INDICATION: Preoperative CABG. COMPARISON: None available. TECHNIQUE: Sonographic evaluation of the bilateral lower extremity venous system was performed utilizing grayscale, color Doppler and spectral waveform analysis. FINDINGS: Right greater saphenous vein: Origin not visualized due to bandage from catheterization. Proximal: 0.43 cm Mid: 0.28 cm Distal: 0.26 cm Medial knee: 0.30 cm Proximal le.20 cm Mid le.13 cm Distal le.18 cm Lesser saphenous vein, right colon Proximal: 0.25 cm Mid: 0.14 cm Distal: 0.16 cm Left greater saphenous vein: Origin: 0.61 cm Proximal: 0.46 cm Mid: 0.36 cm Distal: 0.27 cm Medial knee: 0.34 cm Proximal le.25 cm Mid le.21 cm Distal le.19 cm Lesser saphenous vein, left: Proximal: 0.30 cm Mid: 0.17 cm Distal: 0.08 cm There is normal color Doppler without evidence for thrombosis. IMPRESSION: Bilateral lower extremity vein mapping as detailed above. Electronically signed by: Emerald Lindo MD (11/08/2017 2:00 PM) [id number]
[2017-11-08] MEDS: HEPARIN 25,000UTS/500ML PREMIX 500 ML IV PRN (17:53)
[2017-11-08] MEDS: ATORVASTATIN CALCIUM 20 MG TABLET PO SCH (20:51)
[2017-11-08] MEDS: ZOLPIDEM 5 MG TABLET. PO PRN (22:30)
[2017-11-09] VITALS (16 sets, daily range): BP systolic 92–158; BP diastolic 46–85
[2017-11-09] MEDS ORDERED: HEPARIN IRR ONE (06:00)
[2017-11-09] MEDS ORDERED: VANCOMYCIN 10GM VIAL for OR. CEMENT ONE (06:00)
[2017-11-09] MEDS ORDERED: POTASSIUM CHLORIDE 15 MEQ, SODIUM BICARBONATE VIAL 12.5 MEQ in IV ELECTROLYTE-S (PH 7.4... IRR ONE (06:00)
[2017-11-09] MEDS ORDERED: TRANEXAMIC ACID 1,000 MG in IV NORMAL SALINE 50ML 50 ML INJ ONE (06:00)
[2017-11-09] MEDS ORDERED: NORMAL SALINE IRR ONE (06:00)
[2017-11-09] MEDS: LEVOTHYROXINE 100 MCG TABLET PO SCH (06:00)
[2017-11-09] MEDS ORDERED: POTASSIUM CHLORIDE 70 MEQ, SODIUM BICARBONATE VIAL 12.5 MEQ, LIDOCAINE 2% 24 ML in IV E... IRR ONE (06:00)
[2017-11-09] MEDS ORDERED: ASPIRIN 300 MG SUPP.RECT ONE (06:07)
[2017-11-09] MEDS ORDERED: SURGICEL HEMOSTAT 4X8 EACH. ONE (06:07)
[2017-11-09] MEDS ORDERED: PAPAVERINE 60 MG/2 ML VIAL FOR OR ONLY. ONE (06:07)
[2017-11-09] MEDS ORDERED: VANCOMYCIN 10GM VIAL for OR. ONE (06:07)
[2017-11-09] MEDS ORDERED: 0.9 % SODIUM CHLORIDE 20 ML VIAL. IJ ONE (06:08)
[2017-11-09] MEDS ORDERED: HEPARIN 30,000 UNIT/30 ML VIAL. ONE ×4 (06:43→12:10)
[2017-11-09] MEDS ORDERED: ROCURONIUM 100 MG/10 ML VIAL. ONE ×2 (06:46→09:30)
[2017-11-09] MEDS ORDERED: fentaNYL PF VIAL 100 MCG/2 ML VIAL ONE (06:46)
[2017-11-09] MEDS ORDERED: MIDAZOLAM HCL/PF 2 MG/2 ML VIAL. ONE ×2 (06:46→08:57)
[2017-11-09] MEDS ORDERED: AMINOCAPROIC ACID 5,000 MG/20 ML VIAL. IV ONE ×3 (06:52)
[2017-11-09] MEDS ORDERED: HEPARIN for IV BOLUS 10,000 UNIT/10 ML VIAL. ONE (06:52)
[2017-11-09] MEDS ORDERED: NITROGLYCERIN PREMIX 0 ML IV ONE (06:52)
[2017-11-09] MEDS ORDERED: ETOMIDATE 20 MG/10 ML VIAL. IV ONE (06:52)
[2017-11-09] MEDS ORDERED: PHENYLEPHRINE 10 MG/ML VIAL. ONE ×3 (06:53)
[2017-11-09] MEDS ORDERED: ISOFLURANE 61 TO 120 MINUTES. IH ONE (06:53)
[2017-11-09] MEDS ORDERED: SUFentanil 100 MCG/2 ML AMPUL. ONE ×2 (06:54→09:17)
[2017-11-09] MEDS ORDERED: ePHEDrine PF IN SALINE 50 MG/5 ML DISP.SYRIN IV ONE (06:54)
[2017-11-09] MEDS ORDERED: ONDANSETRON PF 4 MG/2 ML VIAL. IV PRN (07:00)
[2017-11-09] MEDS ORDERED: fentaNYL PF VIAL 100 MCG/2 ML VIAL IV PRN ×2 (07:00)
[2017-11-09] MEDS ORDERED: IV RINGERS,LACTATED 1000ML 1,000 ML IV SCH (07:00)
[2017-11-09] MEDS ORDERED: LIDOCAINE 1% PF 2 ML VIAL. ID PRN (07:00)
[2017-11-09] MEDS ORDERED: PROCHLORPERAZINE 10 MG/2 ML VIAL. IV PRN (07:00)
[2017-11-09] MEDS ORDERED: INSULIN REGULAR VIAL 150 UNIT in 0.9 % SODIUM CHLORIDE 150ML 150 ML IV PRN ×2 (07:00→12:30)
[2017-11-09] MEDS: PANTOPRAZOLE 40 MG TABLET.DR. PO SCH (07:30)
[2017-11-09] MEDS ORDERED: ISOFLURANE > 120 MINUTES. IH ONE (08:56)
[2017-11-09] MEDS: CETIRIZINE HCL 10 MG TABLET. PO SCH (09:00)
[2017-11-09] MEDS ORDERED: NITROGLYCERIN 50 MG/250 ML IV ONE (09:23)
[2017-11-09] MEDS ORDERED: PROTAMINE 250 MG/25 ML VIAL IV ONE (09:27)
[2017-11-09] MEDS ORDERED: PROTAMINE 50 MG/5 ML VIAL. IV ONE ×2 (10:02→11:51)
[2017-11-09] MEDS ORDERED: CALCIUM CHLORIDE 1,000 MG/10 ML DISP.SYRIN ONE (12:10)
[2017-11-09] MEDS ORDERED: MANNITOL 25% 12.5 G/50 ML VIAL FOR OR. ONE (12:10)
[2017-11-09] MEDS ORDERED: ALBUMIN HUMAN 25% 100 ML IV ONE (12:10)
[2017-11-09] MEDS ORDERED: LIDOCAINE 2% PF Vial for OR 5 ML VIAL. ONE (12:10)
[2017-11-09] MEDS ORDERED: MAGNESIUM SULFATE 5 GM/10 ML VIAL. ONE ×2 (12:10)
[2017-11-09] MEDS ORDERED: PROPOFOL 100 ML IV PRN (12:30)
[2017-11-09] MEDS ORDERED: 0.9 % SODIUM CHLORIDE 10 ML DISP.SYRIN. IV PRN (12:30)
[2017-11-09] MEDS ORDERED: DEXTROSE 50% 25 GM / 50ML DISP.SYRIN. IV PRN (12:30)
[2017-11-09] MEDS ORDERED: ALBUTEROL SULFATE 2.5 MG/3 ML NEBU. NEB PRN (12:30)
[2017-11-09] MEDS ORDERED: BISACODYL 10 MG SUPP.RECT. PR PRN (12:30)
[2017-11-09] MEDS ORDERED: MAGNESIUM SULFATE 1GM 100 ML IV PRN (12:30)
[2017-11-09] MEDS ORDERED: ELECTROLYTE (ICU) PROTOCOL. MC PRN (12:30)
[2017-11-09 12:45] LABS: HEMATOCRIT 31.5 % (36.0-47.0); HEMOGLOBIN 10.7 g/dL (12.0-15.5)
--- NOTE | 2017-11-09 12:48 | PDOC ---
BRIEF OPERATIVE NOTE Date: Nov 09, 2017 Pre-Op Diagnosis Unstable angina Diabetes Hyperlipidemia Morbid obesity Post-Op Diagnosis Unstable angina Diabetes Hyperlipidemia Morbid obesity Procedure Performed CABG x 2 (CLARK to LAD, SVG to RPDA) Left endoscopic greater saphenous vein harvest Surgeon Glory Tavares MD Production Stage Manager MANUEL Lucas Anesthesiologist Melecio Saha MD Anesthesia Type: General Blood Loss Cellsaver IV Fluid Crystalloid: 2000 mls Cellsaver: 450 mls Urine Output 1200 mls Specimens Obtained None Findings Small 1-1,5mm RPDA and LAD targets Good quality and caliber CLARK and SVG Complications None Operative Note Additional remarks: CPB time: 78 min x-clamp time: 51 min Off CPB without inotropes GLORY TAVARES MD Nov 09, 2017 12:48
--- NOTE | 2017-11-09 12:53 | PDOC4 ---
Operative Note Operative Note Date Nov 09, 2017 Preoperative diagnosis Unstable angina Diabetes Hyperlipidemia Morbid obesity Postoperative diagnosis Unstable angina Diabetes Hyperlipidemia Morbid obesity Procedure performed CABG x 2 (CLARK to LAD, SVG to RPDA) Left endoscopic greater saphenous vein harvest Surgeon Glory Solis MD [employer] Author MANUEL Lucas Anesthesia type General Blood loss Cellsaver IV fluids Crystalloid: 2000 mls Cellsaver: 450 mls Urine output 1200 mls Specimens obtained None Findings Small 1-1,5mm RPDA and LAD targets Good quality and caliber CLARK and SVG Complications None Additional remarks: CPB time: 78 min x-clamp time: 51 min Off CPB without inotropes Indication Patient is a 62 year female with a history of diabetes and strong family history of premature IHD and sudden cardiac who presents with stable angina. For the past 4 months she complains of atypical chest pain, SOB and fatigue, mostly on exertion. A subsequent MPI demonstrated reversible inferior ischemia. Check coronary angiogram today which demonstrated a very tight proximal to mid LAD stenosis and a tight mid RCA lesion. Her LV function is preserved. A CABG was indicated given her proximal LAD disease in the context of diabetes. Operation GLORY SOLIS MD Nov 09, 2017 12:53
[2017-11-09 12:56] LABS: PROTHROMBIN TIME PATIENT 15.6 SEC (11.7-14.0)
[2017-11-09] MEDS ORDERED: AMIODARONE 150 MG in IV DEXTROSE 5% 100ML 100 ML IV ONE (13:15)
--- NOTE | 2017-11-09 13:27 | RAD ---
Portable chest, 11/09/2017: HISTORY: Postop evaluation, CABG Sternal wires are in place. The ET tube tip lies well above the linda. A right jugular [place]-Srinivas catheter extends into the right main pulmonary artery. An NG tube extends into the stomach. Two mediastinal drains and a left chest tube are in place. The heart is at the upper limits of normal in size. The pulmonary vascularity is normal. No significant pulmonary infiltrate, pneumothorax or hemothorax is seen. IMPRESSION: 1. Multiple tubes and catheters are now in place as described above. 2. No significant postoperative cardiopulmonary abnormality is detected. Electronically signed by: Alin Morgan MD (11/09/2017 1:23 PM) [facility]
[2017-11-09] MEDS ORDERED: AMIODARONE 900 MG in IV DEXTROSE 5% 500 ML IV PRN (13:30)
[2017-11-09 13:34] LABS: FIO2 ISTAT 75; VEN BASE EXCESS ISTAT -2 mmol/L (0-3); VEN GLUC ISTAT 125 mg/dL (70-99); VEN HCO3 ISTAT 23 mmol/L (24-28); VEN HCT ISTAT 29 % (36-40); VEN HGB ISTAT 9.9 g/dL (12-15); VEN ION CA ISTAT 1.11 mmol/L (1.13-1.32); VEN K ISTAT 4.1 mmol/L (3.5-5.0); VEN NA ISTAT 140 mmol/L (135-145); VEN O2 ISTAT 47 mmHg (20-40); VEN PCO2 ISTAT 37 mmHg (41-51); VEN SO2 ISTAT 83 %; VEN TCO2 ISTAT 24 mmol/L (21-32)
[2017-11-09 13:34] LABS: ART BE ISTAT 1 mmol/L (0-3); ART GLUC ISTAT 137 mg/dL (70-99); ART HCO3 ISTAT 25 mmol/L (21-28); ART HCT ISTAT 36 % (36-40); ART HGB ISTAT 12.2 g/dL (12-15); ART ION CA ISTAT 1.23 mmol/L (1.13-1.32); ART K ISTAT 3.9 mmol/L (3.5-5.0); ART NA ISTAT 141 mmol/L (135-145); ART PCO2 ISTAT 36 mmHg (35-45); ART PH ISTAT 7.45 (7.35-7.45); ART PO2 ISTAT 350 mmHg (75-100); ART SAT O2 SAT 100 % (95-99); ART TCO2 ISTAT 26 mmol/L (21-32)
[2017-11-09 13:34] LABS: ART BE ISTAT 2 mmol/L (0-3); ART GLUC ISTAT 117 mg/dL (70-99); ART HCO3 ISTAT 27 mmol/L (21-28); ART HCT ISTAT 26 % (36-40); ART HGB ISTAT 8.8 g/dL (12-15); ART ION CA ISTAT 1.13 mmol/L (1.13-1.32); ART K ISTAT 4.5 mmol/L (3.5-5.0); ART NA ISTAT 138 mmol/L (135-145); ART PCO2 ISTAT 46 mmHg (35-45); ART PH ISTAT 7.38 (7.35-7.45); ART PO2 ISTAT 387 mmHg (75-100); ART SAT O2 SAT 100 % (95-99); ART TCO2 ISTAT 28 mmol/L (21-32)
[2017-11-09 13:34] LABS: ART BE ISTAT 1 mmol/L (0-3); ART GLUC ISTAT 114 mg/dL (70-99); ART HCO3 ISTAT 25 mmol/L (21-28); ART HCT ISTAT 26 % (36-40); ART HGB ISTAT 8.8 g/dL (12-15); ART ION CA ISTAT 1.71 mmol/L (1.13-1.32); ART NA ISTAT 139 mmol/L (135-145); ART PCO2 ISTAT 37 mmHg (35-45); ART PH ISTAT 7.44 (7.35-7.45); ART PO2 ISTAT 398 mmHg (75-100); ART SAT O2 SAT 100 % (95-99); ART TCO2 ISTAT 26 mmol/L (21-32)
[2017-11-09 13:34] LABS: ART BE ISTAT 1 mmol/L (0-3); ART GLUC ISTAT 130 mg/dL (70-99); ART HCO3 ISTAT 26 mmol/L (21-28); ART HCT ISTAT 27 % (36-40); ART HGB ISTAT 9.2 g/dL (12-15); ART ION CA ISTAT 1.01 mmol/L (1.13-1.32); ART K ISTAT 4.2 mmol/L (3.5-5.0); ART NA ISTAT 138 mmol/L (135-145); ART PCO2 ISTAT 41 mmHg (35-45); ART PH ISTAT 7.41 (7.35-7.45); ART PO2 ISTAT 534 mmHg (75-100); ART SAT O2 SAT 100 % (95-99); ART TCO2 ISTAT 27 mmol/L (21-32)
[2017-11-09 13:34] LABS: ART BE ISTAT 3 mmol/L (0-3); ART GLUC ISTAT 132 mg/dL (70-99); ART HCO3 ISTAT 28 mmol/L (21-28); ART HCT ISTAT 38 % (36-40); ART HGB ISTAT 12.9 g/dL (12-15); ART ION CA ISTAT 1.25 mmol/L (1.13-1.32); ART K ISTAT 3.8 mmol/L (3.5-5.0); ART NA ISTAT 140 mmol/L (135-145); ART PCO2 ISTAT 41 mmHg (35-45); ART PH ISTAT 7.43 (7.35-7.45); ART PO2 ISTAT 461 mmHg (75-100); ART SAT O2 SAT 100 % (95-99); ART TCO2 ISTAT 29 mmol/L (21-32)
[2017-11-09 13:34] LABS: ART BE ISTAT 2 mmol/L (0-3); ART GLUC ISTAT 125 mg/dL (70-99); ART HCO3 ISTAT 26 mmol/L (21-28); ART HCT ISTAT 28 % (36-40); ART HGB ISTAT 9.5 g/dL (12-15); ART ION CA ISTAT 1.09 mmol/L (1.13-1.32); ART K ISTAT 4.4 mmol/L (3.5-5.0); ART NA ISTAT 141 mmol/L (135-145); ART PCO2 ISTAT 37 mmHg (35-45); ART PH ISTAT 7.45 (7.35-7.45); ART PO2 ISTAT 350 mmHg (75-100); ART SAT O2 SAT 100 % (95-99); ART TCO2 ISTAT 27 mmol/L (21-32)
[2017-11-09 13:47] LABS: BASE EXCESS COOX -6 mmol/L (-3-3); HCO3 COOX 19 mmol/L (21-28); METHEMOGLOBIN 0.5 % (0.0-1.9); OXYHEMOGLOBIN 98.4 %; PCO2 COOX 35 mmHg (35-46); PO2 COOX 372 mmHg (65-108); SAT O2 COOX 99 % (92-99)
[2017-11-09] MEDS ORDERED: SODIUM BICARB ADULT 8.4% 50 MEQ/50 ML DISP.SYRIN. IV ONE (14:00)
[2017-11-09] MEDS: MEPERIDINE PF 25 MG/ML VIAL. IV PRN ×2 (14:01→14:17)
[2017-11-09] MEDS: MORPHINE SULFATE 2 MG/ML VIAL. IV PRN ×3 (14:01→18:08)
[2017-11-09] MEDS: ALBUMIN HUMAN 5% 250 ML IV PRN ×2 (14:02→15:26)
[2017-11-09] MEDS: IV RINGERS,LACTATED 1000ML 1,000 ML IV SCH ×2 (14:03→21:33)
[2017-11-09 14:09] LABS: CALCIUM 10.1 mg/dL (8.5-10.1); CREATININE 0.7 mg/dL (0.6-1.0); GFR 84.2; MAGNESIUM 2.3 mg/dL (1.8-2.4); POTASSIUM 4.1 mmol/L (3.5-5.1)
--- NOTE | 2017-11-09 14:16 | EKG ---
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
[2017-11-09 16:59] LABS: BASE EXCESS ABG 0 mmol/L (-3-3); HCO3 ABG 26 mmol/L (21-28); PCO2 ABG 48 mmHg (35-46); PO2 ABG 118 mmHg (65-108); SAT O2 ABG 97 % (92-99)
[2017-11-09 17:29] LABS: FIO2 ABG 40
[2017-11-09] MEDS: ONDANSETRON PF 4 MG/2 ML VIAL. IV PRN (17:44)
[2017-11-09] MEDS: POTASSIUM CHLORIDE 20MEQ 50 ML IV SCH ×2 (18:33→19:57)
[2017-11-09] MEDS: oxyCODONE/APAP 5/325 1 TAB TABLET PO PRN ×2 (19:57→21:23)
[2017-11-09] MEDS: CHLORHEXIDINE 0.12% 15 ML MOUTHWASH. MM SCH (21:00)
[2017-11-09] MEDS: SENNOSIDES/DOCUSATE 8.6/50MG TABLET. PO SCH (21:24)
[2017-11-09] MEDS: FAMOTIDINE 20 MG/2 ML VIAL IVP SCH (21:24)
[2017-11-10] VITALS (26 sets, daily range): BP systolic 94–158; BP diastolic 44–66
[2017-11-10] MEDS ORDERED: ALBUMIN HUMAN 5% 500 ML IV ONE (00:30)
[2017-11-10] MEDS: oxyCODONE/APAP 5/325 1 TAB TABLET PO PRN ×7 (01:54→22:06)
--- NOTE | 2017-11-10 03:51 | EKG ---
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
[2017-11-10] MEDS: LEVOTHYROXINE 100 MCG TABLET PO SCH (06:19)
[2017-11-10 06:57] LABS: HEMATOCRIT 29.3 % (36.0-47.0); HEMOGLOBIN 9.9 g/dL (12.0-15.5); RED BLOOD COUNT 3.43 x10^6/uL (3.50-5.40); WHITE BLOOD COUNT 12.7 x10^3/uL (4.0-11.0)
[2017-11-10 07:01] LABS: CALCIUM 8.5 mg/dL (8.5-10.1); CREATININE 0.7 mg/dL (0.6-1.0); GFR 84.2; MAGNESIUM 1.8 mg/dL (1.8-2.4); POTASSIUM 4.2 mmol/L (3.5-5.1)
--- NOTE | 2017-11-10 07:53 | RAD ---
Portable chest, 11/10/2017: HISTORY: Postop evaluation, chest pain Comparison is made to yesterday's study. The ET tube and NG tube have been removed. The right jugular [place]-Srinivas catheter extends into the right main pulmonary artery. Two mediastinal drains and a left chest tube remain in place. The heart is at the upper limits of normal in size. The pulmonary vascularity is normal. Mild streaky atelectasis has developed in the left base. There is no evidence of pneumothorax or significant pleural fluid. IMPRESSION: 1. Mild left basilar atelectasis. 2. The postoperative chest is otherwise unremarkable. Electronically signed by: Alin Morgan MD (11/10/2017 7:49 AM) [facility]
[2017-11-10] MEDS ORDERED: POTASSIUM CHLORIDE 20MEQ 50 ML IV ONE (08:00)
[2017-11-10] MEDS ORDERED: MAGNESIUM SULFATE 2GM 50 ML IV ONE (08:00)
[2017-11-10] MEDS ORDERED: METOPROLOL TART IMMED RELEASE 25 MG TABLET. PO SCH (09:00)
[2017-11-10] MEDS: CHLORHEXIDINE 0.12% 15 ML MOUTHWASH. MM SCH (09:00)
[2017-11-10] MEDS: ASPIRIN ENTERIC COATED 325 MG TABLET.DR. PO SCH (09:22)
[2017-11-10] MEDS: FAMOTIDINE 20 MG/2 ML VIAL IVP SCH ×2 (09:22→21:10)
[2017-11-10] MEDS: PANTOPRAZOLE 40 MG TABLET.DR. PO SCH (09:22)
[2017-11-10] MEDS: SENNOSIDES/DOCUSATE 8.6/50MG TABLET. PO SCH ×2 (09:22→21:10)
[2017-11-10] MEDS: MORPHINE SULFATE 2 MG/ML VIAL. IV PRN ×2 (09:22→23:40)
[2017-11-10] MEDS: POLYETHYLENE GLYCOL 3350 17 GM PACKET. PO SCH (09:23)
[2017-11-10] MEDS: CETIRIZINE HCL 10 MG TABLET. PO SCH (09:23)
[2017-11-10] MEDS ORDERED: FUROSEMIDE 20 MG/2 ML VIAL. IVP ONE (11:45)
[2017-11-10] MEDS ORDERED: AMIODARONE HCL 200 MG TABLET. PO SCH (12:00)
--- NOTE | 2017-11-10 12:12 | EKG ---
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
[2017-11-10] MEDS: PROCHLORPERAZINE 10 MG/2 ML VIAL. IV PRN (12:35)
[2017-11-10] MEDS ORDERED: DEXTROSE 50% 25 GM / 50ML DISP.SYRIN. IV PRN (13:15)
[2017-11-10] MEDS: INSULIN LISPRO 300 UNITS/3 ML INSULN.PEN. SQ SCH ×2 (13:26→15:59)
--- NOTE | 2017-11-10 13:49 | PDOC ---
Progress Note Subjective Subjective Fast track extubation yesterday. Normotensive, but bradycardic for the past 2 hours-junctional in the 40s-pacing wires not capturing. Amiodarone stopped, did receive b jerilyn this morning. Minimal tube output. UO OK, creat 0,7. [place]- Srinivas and a-line out. 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 3, no focal neurologic deficit SKIN: No rash IV: ok Labs Lab Laboratory Tests Test 11/09/17 13:50 11/09/17 13:51 11/09/17 15:15 11/09/17 16:00 Sodium Level 143 mmol/L (136-145) Potassium Level 4.1 mmol/L (3.5-5.1) Chloride Level 111 mmol/L (98-107) Carbon Dioxide Level 22 mmol/L (21-32) Anion Gap 10 (6-14) Blood Urea Nitrogen 9 mg/dL (7-20) Creatinine 0.7 mg/dL (0.6-1.0) Estimated GFR (Cockcroft-Gault) 84.2 Glucose Level 137 mg/dL (70-99) Calcium Level 10.1 mg/dL (8.5-10.1) Magnesium Level 2.3 mg/dL (1.8-2.4) Glucose (Fingerstick) 131 mg/dL (70-99) 196 mg/dL (70-99) 159 mg/dL (70-99) Test 11/09/17 16:50 11/09/17 17:15 11/09/17 17:20 11/09/17 18:15 O2 Saturation 97 % (92-99) Arterial Blood pH 7.35 (7.35-7.45) Arterial Blood pCO2 at Patient Temp 48 mmHg (35-46) Arterial Blood pO2 at Patient Temp 118 mmHg (65-108) Arterial Blood HCO3 26 mmol/L (21-28) Arterial Blood Base Excess 0 mmol/L (-3-3) FiO2 40 Hematocrit 31.5 % (36.0-47.0) Potassium Level 3.7 mmol/L (3.5-5.1) Glucose (Fingerstick) 165 mg/dL (70-99) 167 mg/dL (70-99) Test 11/09/17 19:25 11/09/17 20:37 11/09/17 23:12 11/10/17 00:08 Glucose (Fingerstick) 170 mg/dL (70-99) 166 mg/dL (70-99) 161 mg/dL (70-99) 149 mg/dL (70-99) Test 11/10/17 01:09 11/10/17 02:12 11/10/17 03:23 11/10/17 04:12 Glucose (Fingerstick) 140 mg/dL (70-99) 138 mg/dL (70-99) 144 mg/dL (70-99) 141 mg/dL (70-99) Test 11/10/17 06:00 11/10/17 09:07 11/10/17 11:58 White Blood Count 12.7 x10^3/uL (4.0-11.0) Red Blood Count 3.43 x10^6/uL (3.50-5.40) Hemoglobin 9.9 g/dL (12.0-15.5) Hematocrit 29.3 % (36.0-47.0) Mean Corpuscular Volume 85 fL (79-100) Mean Corpuscular Hemoglobin 29 pg (25-35) Mean Corpuscular Hemoglobin Concent 34 g/dL (31-37) Red Cell Distribution Width 14.0 % (11.5-14.5) Platelet Count 168 x10^3/uL (140-400) Sodium Level 139 mmol/L (136-145) Potassium Level 4.2 mmol/L (3.5-5.1) Chloride Level 107 mmol/L (98-107) Carbon Dioxide Level 24 mmol/L (21-32) Anion Gap 8 (6-14) Blood Urea Nitrogen 11 mg/dL (7-20) Creatinine 0.7 mg/dL (0.6-1.0) Estimated GFR (Cockcroft-Gault) 84.2 Glucose Level 146 mg/dL (70-99) Calcium Level 8.5 mg/dL (8.5-10.1) Magnesium Level 1.8 mg/dL (1.8-2.4) Glucose (Fingerstick) 132 mg/dL (70-99) 164 mg/dL (70-99) Objective Assessment POD#1, s/p CABG x 2 (CLARK to LAD, SVG to RPDA) Fast track extubation yesterday. Normotensive, but bradycardic for the past 2 hours-junctional in the 40s-pacing wires not capturing. Amiodarone stopped, did receive b jerilyn this morning. Minimal tube output. UO OK, creat 0,7. [place]- Srinivas and a-line out. Plan Plan of Care Since pacing wires not capturing, will start dopamine to increase HR D/c mediastinal tubes ASA, statin Ambulation and pulm toilet Lasix 20mg iv daily Stop b jerilyn and amiodarone for now. GLORY TAVARES MD Nov 10, 2017 13:49
[2017-11-10] MEDS: FUROSEMIDE 20 MG/2 ML VIAL. IVP SCH (13:56)
--- NOTE | 2017-11-10 14:23 | PDOC ---
PROGRESS NOTES Subjective Subjective Patient seen and examined Extubated and alert. Objective Objective Vital Signs Date Time Temp Pulse Resp B/P (MAP) Pulse Ox O2 Delivery O2 Flow Rate FiO2 11/10/17 14:00 68 12 158/65 (96) 96 Nasal Cannula 2.0 11/10/17 12:00 98.2 98.2 Intake and Output 11/10/17 07:00 Intake Total 1652 ml Output Total 2524 ml Balance -872 ml Intake Oral 240 ml IV Total 1412 ml Output Urine Total 1875 ml Chest Tube Drainage Total 649 ml Physical Exam Abdomen: Normal bowel sounds Heart: Other (mild bradycardia) General: mild distress Lungs: Other (slightly decreased breath sounds) Assessment Assessment 1. Multivessel coronary disease including an LAD lesion. As post bypass surgery. Postop day 1. Extubated. Mild bradycardia as noted above and started on dopamine as per CV surgery. Postop management as per CV surgery. 2. Diabetes mellitus. Sliding scale insulin. 3. Hyperlipidemia. Statins. 4. Hypertension. Controlled. 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 Comment Review of Relevant I have reviewed the following items asad (where applicable) has been applied. Labs Laboratory Tests Test 11/08/17 14:45 11/08/17 17:02 11/08/17 20:51 11/09/17 04:56 Heparin Anti-Xa Act, Unfractionated 0.27 IU/mL (0.30-0.70) Glucose (Fingerstick) 112 mg/dL (70-99) 136 mg/dL (70-99) 128 mg/dL (70-99) Test 11/09/17 08:11 11/09/17 09:53 11/09/17 10:38 11/09/17 10:39 Bedside Hemoglobin (Calculated) 12.9 g/dL (12-15) 12.2 g/dL (12-15) 9.2 g/dL (12-15) Bedside Hematocrit 38 % (36-40) 36 % (36-40) 27 % (36-40) Activated Clotting Time 101 SEC (90-125) 469 SEC (90-125) 492 SEC (90-125) Bedside Arterial pH 7.43 (7.35-7.45) 7.45 (7.35-7.45) 7.41 (7.35-7.45) Bedside Arterial pCO2 41 mmHg (35-45) 36 mmHg (35-45) 41 mmHg (35-45) Bedside Arterial pO2 461 mmHg (75-100) 350 mmHg (75-100) 534 mmHg (75-100) Bedside Arterial HCO3 28 mmol/L (21-28) 25 mmol/L (21-28) 26 mmol/L (21-28) Bedside Arterial Total CO2 29 mmol/L (21-32) 26 mmol/L (21-32) 27 mmol/L (21-32) Arterial Bld O2 Saturation (Measur) 100 % (95-99) 100 % (95-99) 100 % (95-99) Bedside Arterial Blood Base Excess 3 mmol/L (0-3) 1 mmol/L (0-3) 1 mmol/L (0-3) Bedside FiO2 100.0 100.0 100.0 Bedside Sodium 140 mmol/L (135-145) 141 mmol/L (135-145) 138 mmol/L (135-145) Bedside Potassium 3.8 mmol/L (3.5-5.0) 3.9 mmol/L (3.5-5.0) 4.2 mmol/L (3.5-5.0) Glucose Level 132 mg/dL (70-99) 137 mg/dL (70-99) 130 mg/dL (70-99) Bedside Ionized Calcium (Itzel) 1.25 mmol/L (1.13-1.32) 1.23 mmol/L (1.13-1.32) 1.01 mmol/L (1.13-1.32) Test 11/09/17 10:56 11/09/17 11:05 11/09/17 11:08 11/09/17 11:40 Bedside Hematocrit 29 % (36-40) 28 % (36-40) Bedside Venous pH 7.40 (7.32-7.42) Bedside Venous pCO2 37 mmHg (41-51) Bedside Venous pO2 47 mmHg (20-40) Bedside Venous HCO3 23 mmol/L (24-28) Bedside Venous Blood Total CO2 24 mmol/L (21-32) Bedside Venous Blood O2 Saturation 83 % Bedside Venous Blood Base Excess -2 mmol/L (0-3) POC Venous Hemoglobin (Calc) 9.9 g/dL (12-15) Bedside FiO2 75 75.0 Bedside Sodium 140 mmol/L (135-145) 141 mmol/L (135-145) Bedside Potassium 4.1 mmol/L (3.5-5.0) 4.4 mmol/L (3.5-5.0) Glucose Level 125 mg/dL (70-99) 125 mg/dL (70-99) Bedside Ionized Calcium (Itzel) 1.11 mmol/L (1.13-1.32) 1.09 mmol/L (1.13-1.32) Activated Clotting Time 429 SEC (90-125) 429 SEC (90-125) Bedside Hemoglobin (Calculated) 9.5 g/dL (12-15) Bedside Arterial pH 7.45 (7.35-7.45) Bedside Arterial pCO2 37 mmHg (35-45) Bedside Arterial pO2 350 mmHg (75-100) Bedside Arterial HCO3 26 mmol/L (21-28) Bedside Arterial Total CO2 27 mmol/L (21-32) Arterial Bld O2 Saturation (Measur) 100 % (95-99) Bedside Arterial Blood Base Excess 2 mmol/L (0-3) Test 11/09/17 11:41 11/09/17 12:04 11/09/17 12:05 11/09/17 12:19 Bedside Hemoglobin (Calculated) 8.8 g/dL (12-15) 8.8 g/dL (12-15) Bedside Hematocrit 26 % (36-40) 26 % (36-40) Bedside Arterial pH 7.38 (7.35-7.45) 7.44 (7.35-7.45) Bedside Arterial pCO2 46 mmHg (35-45) 37 mmHg (35-45) Bedside Arterial pO2 387 mmHg (75-100) 398 mmHg (75-100) Bedside Arterial HCO3 27 mmol/L (21-28) 25 mmol/L (21-28) Bedside Arterial Total CO2 28 mmol/L (21-32) 26 mmol/L (21-32) Arterial Bld O2 Saturation (Measur) 100 % (95-99) 100 % (95-99) Bedside Arterial Blood Base Excess 2 mmol/L (0-3) 1 mmol/L (0-3) Bedside FiO2 90.0 100.0 Bedside Sodium 138 mmol/L (135-145) 139 mmol/L (135-145) Bedside Potassium 4.5 mmol/L (3.5-5.0) 4.0 mmol/L (3.5-5.0) Glucose Level 117 mg/dL (70-99) 114 mg/dL (70-99) Bedside Ionized Calcium (Itzel) 1.13 mmol/L (1.13-1.32) 1.71 mmol/L (1.13-1.32) Activated Clotting Time 110 SEC (90-125) O2 Saturation 99 % (92-99) Arterial Blood pH 7.35 (7.35-7.45) Arterial Blood pCO2 at Patient Temp 35 mmHg (35-46) Arterial Blood pO2 at Patient Temp 372 mmHg (65-108) Arterial Blood HCO3 19 mmol/L (21-28) Arterial Blood Base Excess -6 mmol/L (-3-3) Oxyhemoglobin 98.4 % Methemoglobin 0.5 % (0.0-1.9) Carbon Monoxide, Quantitative 0.3 % (0.0-1.9) FiO2 100 Test 11/09/17 12:35 11/09/17 13:50 11/09/17 13:51 11/09/17 15:15 White Blood Count 16.0 x10^3/uL (4.0-11.0) Hemoglobin 10.7 g/dL (12.0-15.5) Hematocrit 31.5 % (36.0-47.0) Platelet Count 166 x10^3/uL (140-400) Prothrombin Time 15.6 SEC (11.7-14.0) Prothromb Time International Ratio 1.3 (0.8-1.1) Activated Partial Thromboplast Time 27 SEC (24-38) Fibrinogen 263 mg/dL (200-440) Sodium Level 143 mmol/L (136-145) Potassium Level 4.1 mmol/L (3.5-5.1) Chloride Level 111 mmol/L (98-107) Carbon Dioxide Level 22 mmol/L (21-32) Anion Gap 10 (6-14) Blood Urea Nitrogen 9 mg/dL (7-20) Creatinine 0.7 mg/dL (0.6-1.0) Estimated GFR (Cockcroft-Gault) 84.2 Glucose Level 137 mg/dL (70-99) Calcium Level 10.1 mg/dL (8.5-10.1) Magnesium Level 2.3 mg/dL (1.8-2.4) Glucose (Fingerstick) 131 mg/dL (70-99) 196 mg/dL (70-99) Test 11/09/17 16:00 11/09/17 16:50 11/09/17 17:15 11/09/17 17:20 Glucose (Fingerstick) 159 mg/dL (70-99) 165 mg/dL (70-99) O2 Saturation 97 % (92-99) Arterial Blood pH 7.35 (7.35-7.45) Arterial Blood pCO2 at Patient Temp 48 mmHg (35-46) Arterial Blood pO2 at Patient Temp 118 mmHg (65-108) Arterial Blood HCO3 26 mmol/L (21-28) Arterial Blood Base Excess 0 mmol/L (-3-3) FiO2 40 Hematocrit 31.5 % (36.0-47.0) Potassium Level 3.7 mmol/L (3.5-5.1) Test 11/09/17 18:15 11/09/17 19:25 11/09/17 20:37 11/09/17 23:12 Glucose (Fingerstick) 167 mg/dL (70-99) 170 mg/dL (70-99) 166 mg/dL (70-99) 161 mg/dL (70-99) Test 11/10/17 00:08 11/10/17 01:09 11/10/17 02:12 11/10/17 03:23 Glucose (Fingerstick) 149 mg/dL (70-99) 140 mg/dL (70-99) 138 mg/dL (70-99) 144 mg/dL (70-99) Test 11/10/17 04:12 11/10/17 06:00 11/10/17 09:07 11/10/17 11:58 Glucose (Fingerstick) 141 mg/dL (70-99) 132 mg/dL (70-99) 164 mg/dL (70-99) White Blood Count 12.7 x10^3/uL (4.0-11.0) Red Blood Count 3.43 x10^6/uL (3.50-5.40) Hemoglobin 9.9 g/dL (12.0-15.5) Hematocrit 29.3 % (36.0-47.0) Mean Corpuscular Volume 85 fL (79-100) Mean Corpuscular Hemoglobin 29 pg (25-35) Mean Corpuscular Hemoglobin Concent 34 g/dL (31-37) Red Cell Distribution Width 14.0 % (11.5-14.5) Platelet Count 168 x10^3/uL (140-400) Sodium Level 139 mmol/L (136-145) Potassium Level 4.2 mmol/L (3.5-5.1) Chloride Level 107 mmol/L (98-107) Carbon Dioxide Level 24 mmol/L (21-32) Anion Gap 8 (6-14) Blood Urea Nitrogen 11 mg/dL (7-20) Creatinine 0.7 mg/dL (0.6-1.0) Estimated GFR (Cockcroft-Gault) 84.2 Glucose Level 146 mg/dL (70-99) Calcium Level 8.5 mg/dL (8.5-10.1) Magnesium Level 1.8 mg/dL (1.8-2.4) Laboratory Tests Test 11/09/17 15:15 11/09/17 16:00 11/09/17 16:50 11/09/17 17:15 Glucose (Fingerstick) 196 mg/dL (70-99) 159 mg/dL (70-99) O2 Saturation 97 % (92-99) Arterial Blood pH 7.35 (7.35-7.45) Arterial Blood pCO2 at Patient Temp 48 mmHg (35-46) Arterial Blood pO2 at Patient Temp 118 mmHg (65-108) Arterial Blood HCO3 26 mmol/L (21-28) Arterial Blood Base Excess 0 mmol/L (-3-3) FiO2 40 Hematocrit 31.5 % (36.0-47.0) Potassium Level 3.7 mmol/L (3.5-5.1) Test 11/09/17 17:20 11/09/17 18:15 11/09/17 19:25 11/09/17 20:37 Glucose (Fingerstick) 165 mg/dL (70-99) 167 mg/dL (70-99) 170 mg/dL (70-99) 166 mg/dL (70-99) Test 11/09/17 23:12 11/10/17 00:08 11/10/17 01:09 11/10/17 02:12 Glucose (Fingerstick) 161 mg/dL (70-99) 149 mg/dL (70-99) 140 mg/dL (70-99) 138 mg/dL (70-99) Test 11/10/17 03:23 11/10/17 04:12 11/10/17 06:00 11/10/17 09:07 Glucose (Fingerstick) 144 mg/dL (70-99) 141 mg/dL (70-99) 132 mg/dL (70-99) White Blood Count 12.7 x10^3/uL (4.0-11.0) Red Blood Count 3.43 x10^6/uL (3.50-5.40) Hemoglobin 9.9 g/dL (12.0-15.5) Hematocrit 29.3 % (36.0-47.0) Mean Corpuscular Volume 85 fL (79-100) Mean Corpuscular Hemoglobin 29 pg (25-35) Mean Corpuscular Hemoglobin Concent 34 g/dL (31-37) Red Cell Distribution Width 14.0 % (11.5-14.5) Platelet Count 168 x10^3/uL (140-400) Sodium Level 139 mmol/L (136-145) Potassium Level 4.2 mmol/L (3.5-5.1) Chloride Level 107 mmol/L (98-107) Carbon Dioxide Level 24 mmol/L (21-32) Anion Gap 8 (6-14) Blood Urea Nitrogen 11 mg/dL (7-20) Creatinine 0.7 mg/dL (0.6-1.0) Estimated GFR (Cockcroft-Gault) 84.2 Glucose Level 146 mg/dL (70-99) Calcium Level 8.5 mg/dL (8.5-10.1) Magnesium Level 1.8 mg/dL (1.8-2.4) Test 11/10/17 11:58 Glucose (Fingerstick) 164 mg/dL (70-99) Medications Current Medications Iodixanol (Visipaque 320) 100 ml STK-MED ONCE .ROUTE ; Start 11/07/17 at 07:10; Stop 11/07/17 at 07:11; Status DC Lidocaine HCl (Lidocaine 1% Pf) 30 ml STK-MED ONCE .ROUTE ; Start 11/07/17 at 07: 10; Stop 11/07/17 at 07:11; Status DC Heparin Sodium/ Sodium Chloride 1,500 ml @ As Directed STK-MED ONCE .ROUTE ; Start 11/07/17 at 07:10; Stop 11/07/17 at 07:11; Status DC Fentanyl Citrate (Fentanyl 2ml Vial) 100 mcg STK-MED ONCE .ROUTE ; Start at 07:19; Stop 11/07/17 at 07:20; Status DC Midazolam HCl (Versed) 5 mg STK-MED ONCE .ROUTE ; Start 11/07/17 at 07:19; Stop 11/07/17 at 07:20; Status DC Heparin Sodium (Porcine) (Heparin Sodium) 10,000 unit STK-MED ONCE .ROUTE ; Start 11/07/17 at 07:31; Stop 11/07/17 at 07:33; Status DC Verapamil HCl (Verapamil) 5 mg STK-MED ONCE .ROUTE ; Start 11/07/17 at 07:31; Stop 11/07/17 at 07:33; Status DC Nitroglycerin (Nitroglycerin) 200 mcg STK-MED ONCE .ROUTE ; Start 11/07/17 at 07: 31; Stop 11/07/17 at 07:33; Status DC Heparin Sodium/ Sodium Chloride (HEPARIN for ARTERIAL LINE FLUSH) 1,000 unit 1X ONCE IART Last administered on 11/07/17 09:06; Start 11/07/17 at 08:30; Stop 11/07/17 at 08:31; Status DC Heparin Sodium/ Sodium Chloride (HEPARIN for ARTERIAL LINE FLUSH) 1,000 unit 1X ONCE IART Last administered on 11/07/17 09:06; Start 11/07/17 at 08:30; Stop 11/07/17 at 08:31; Status DC Midazolam HCl (Versed) 5 mg 1X ONCE IV Last administered on 11/07/17 09:06; Start 11/07/17 at 08:30; Stop 11/07/17 at 08:31; Status DC Fentanyl Citrate (Fentanyl 2ml Vial) 100 mcg 1X ONCE IV Last administered on 09:07; Start 11/07/17 at 08:30; Stop 11/07/17 at 08:31; Status DC Iodixanol (Visipaque 320) 100 ml 1X ONCE IART Last administered on 11/07/17at 09 :07; Start 11/07/17 at 08:30; Stop 11/07/17 at 08:31; Status DC Lidocaine HCl 20 ml 1X ONCE IJ ; Start 11/07/17 at 08:30; Stop 11/07/17 at 09:08 ; Status DC Info (CONTRAST GIVEN -- Rx MONITORING) 1 each PRN DAILY PRN MC SEE COMMENTS; Start 11/07/17 at 08:30; Stop 11/09/17 at 08:29; Status DC Lidocaine HCl (Lidocaine 1% Pf) 20 ml 1X ONCE INJ Last administered on at 09:15; Start 11/07/17 at 09:15; Stop 11/07/17 at 09:16; Status DC Sodium Chloride (Normal Saline Flush) 3 ml QSHIFT PRN IV AFTER MEDS AND BLOOD DRAWS; Start 11/07/17 at 10:00; Stop 11/09/17 at 12:19; Status DC Sodium Chloride 1,000 ml @ 60 mls/hr [id number] IV Last administered on 11/08/17at 02:32; Start 11/07/17 at 09:52; Stop 11/08/17 at 18:54; Status DC Aspirin (Ecotrin) 81 mg [id number] PO Last administered on 11/08/17at 09:35; Start 11/07/17 at 10:15; Stop 11/09/17 at 12:17; Status DC Metoprolol Tartrate (Lopressor) 12.5 mg BID PO Last administered on 11/08/17at 20 :51; Start 11/07/17 at 10:15; Stop 11/08/17 at 22:00; Status DC Lisinopril (Prinivil) 5 mg DAILY PO Last administered on 11/07/17at 10:32; Start 11/07/17 at 10:15; Stop 11/07/17 at 14:40; Status DC Atorvastatin Calcium (Lipitor) 80 mg QHS PO Last administered on 11/08/17at 20:51 ; Start 11/07/17 at 21:00; Stop 11/09/17 at 12:19; Status DC Acetaminophen (Tylenol) 650 mg PRN Q6HRS PRN PO MILD PAIN Last administered on 11/08/17at 06:25; Start 11/07/17 at 10:00; Stop 11/09/17 at 12:19; Status DC Nitroglycerin (Nitrostat) 0.4 mg PRN Q5MIN PRN SL CHEST PAIN; Start 11/07/17 at 10:00; Stop 11/09/17 at 12:17; Status DC Levothyroxine Sodium (Synthroid) 100 mcg DAILY06 PO Last administered on at 06:19; Start 11/07/17 at 10:30 Cetirizine HCl (ZyrTEC) 10 mg DAILY PO Last administered on 11/10/17at 09:23; Start 11/07/17 at 15:00 Pantoprazole Sodium (Protonix) 40 mg DAILYAC PO Last administered on 11/10/17at 09:22; Start 11/07/17 at 15:00 Zolpidem Tartrate (Ambien) 5 mg PRN QHS PRN PO INSOMNIA, MAY REPEAT IN 1HR Last administered on 11/08/17at 22:30; Start 11/07/17 at 15:45; Stop 11/09/17 at 12 :17; Status DC Cefazolin Sodium/ Dextrose 50 ml @ 100 mls/hr 1X ONCE IV Last administered on 11/09/17at 08:23; Start 11/09/17 at 06:00; Stop 11/09/17 at 12:19; Status DC Insulin Human Lispro (HumaLOG) 0-5 UNITS TIDWMEALS SQ ; Start 11/07/17 at 17:00; Stop 11/09/17 at 12:18; Status DC Dextrose (Dextrose 50%-Water Syringe) 12.5 gm PRN Q15MIN PRN IV SEE COMMENTS; Start 11/07/17 at 16:00; Stop 11/09/17 at 12:18; Status DC Heparin Sodium/ Dextrose 500 ml @ 0 mls/hr CONT PRN IV SEE I/O RECORD Last administered on 11/08/17at 17:53; Start 11/07/17 at 16:45; Stop 11/08/17 at 23:55; Status DC Heparin Sodium (Porcine) (Heparin Sodium) 2,300 unit PRN Q6HRS PRN IV FOR UFH LEVEL LESS THAN 0.2; Start 11/07/17 at 16:45; Stop 11/08/17 at 23:55; Status DC Potassium Chloride 70 meq/ Sodium Bicarbonate 12.5 meq/Lidocaine HCl 24 ml/ Parenteral Electrolytes 571.5 ml @ 571.5 mls/ hr 1X ONCE IRR Last administered on 11/09/17at 10:31; Start 11/09/17 at 06:00; Stop 11/09/17 at 06:59 ; Status DC Potassium Chloride 15 meq/ Sodium Bicarbonate 12.5 meq/Parenteral Electrolytes 520 ml @ 520 mls/hr 1X ONCE IRR Last administered on 11/09/17at 10:31; Start 11/09/17 at 06:00; Stop 11/09/17 at 06:59; Status DC Heparin Sodium (Porcine) 61773 unit/Sodium Chloride 1,020 ml @ 1,020 mls/hr 1X ONCE IRR Last administered on 11/09/17at 09:04; Start 11/09/17 at 06:00; Stop 11/09/17 at 06:59; Status DC Cefazolin Sodium 1 gm/Sodium Chloride 500 ml @ 500 mls/hr 1X ONCE IRR Last administered on 11/09/17at 09:04; Start 11/09/17 at 06:00; Stop 11/09/17 at 06:59 ; Status DC Vancomycin HCl (VANCO for OR ONLY) 10 gm 1X ONCE CEMENT ; Start 11/09/17 at 06: 00; Stop 11/09/17 at 06:01; Status DC Tranexamic Acid 1000 mg/Sodium Chloride 60 ml @ 60 mls/hr 1X PERIOP ONCE INJ ; Start 11/09/17 at 06:00; Stop 11/09/17 at 06:59; Status DC Alprazolam (Xanax) 0.25 mg PRN Q8HRS PRN PO ANXIETY / AGITATION; Start 11/08/17 at 11:30 Prochlorperazine Edisylate (Compazine) 5 mg PACU PRN PRN IV NAUSEA, MRX1; Start 11/09/17 at 07:00; Stop 11/10/17 at 06:59; Status DC Lidocaine HCl (Xylocaine-Mpf 1% Vial) 2 ml PRN 1X PRN ID IV START; Start at 07:00; Stop 11/10/17 at 06:59; Status DC Ringer's Solution 1,000 ml @ 30 mls/hr Q24H IV Last administered on 11/09/17at 06:44; Start 11/09/17 at 07:00; Stop 11/09/17 at 15:08; Status DC Fentanyl Citrate (Fentanyl 2ml Vial) 50 mcg PRN Q5MIN PRN IV MODERATE TO SEVERE PAIN; Start 11/09/17 at 07:00; Stop 11/10/17 at 06:59; Status DC Fentanyl Citrate (Fentanyl 2ml Vial) 25 mcg PRN Q5MIN PRN IV MILD PAIN; Start 11/09/17 at 07:00; Stop 11/10/17 at 06:59; Status DC Ondansetron HCl (Zofran) 4 mg PRN Q6HRS PRN IV NAUSEA/VOMITING; Start 11/09/17 at 07:00; Stop 11/09/17 at 12:50; Status DC Insulin Human Regular 150 unit/ Sodium Chloride 151.5 ml @ 0 mls/hr CONT PRN IV SEE I/O RECORD; Start 11/09/17 at 07:00; Stop 11/09/17 at 15:08; Status DC Heparin Sodium (Porcine) 30,000 unit STK-MED ONCE .ROUTE ; Start 11/09/17 at 06: 43; Stop 11/09/17 at 06:44; Status DC Rocuronium Magdalena (Zemuron) 100 mg STK-MED ONCE .ROUTE ; Start 11/09/17 at 06: 46; Stop 11/09/17 at 06:47; Status DC Fentanyl Citrate (Fentanyl 2ml Vial) 100 mcg STK-MED ONCE .ROUTE ; Start at 06:46; Stop 11/09/17 at 06:47; Status DC Midazolam HCl (Versed) 2 mg STK-MED ONCE .ROUTE ; Start 11/09/17 at 06:46; Stop 11/09/17 at 06:48; Status DC Aminocaproic Acid (Amicar) 5,000 mg STK-MED ONCE IV ; Start 11/09/17 at 06:52; Stop 11/09/17 at 06:53; Status DC Aminocaproic Acid (Amicar) 5,000 mg STK-MED ONCE IV ; Start 11/09/17 at 06:52; Stop 11/09/17 at 06:53; Status DC Aminocaproic Acid (Amicar) 5,000 mg STK-MED ONCE IV ; Start 11/09/17 at 06:52; Stop 11/09/17 at 06:53; Status DC Etomidate (Amidate) 20 mg STK-MED ONCE IV ; Start 11/09/17 at 06:52; Stop at 06:53; Status DC Heparin Sodium (Porcine) (Heparin Sodium) 10,000 unit STK-MED ONCE .ROUTE ; Start 11/09/17 at 06:52; Stop 11/09/17 at 06:53; Status DC Heparin Sodium (Porcine) 30,000 unit STK-MED ONCE .ROUTE ; Start 11/09/17 at 06: 52; Stop 11/09/17 at 06:53; Status DC Heparin Sodium (Porcine) 30,000 unit STK-MED ONCE .ROUTE ; Start 11/09/17 at 06: 52; Stop 11/09/17 at 06:53; Status DC Nitroglycerin/ Dextrose 0 ml @ As Directed STK-MED ONCE IV ; Start 11/09/17 at 06:52; Stop 11/09/17 at 06:54; Status DC Phenylephrine HCl (Mike-Synephrine Inj) 10 mg STK-MED ONCE .ROUTE ; Start at 06:53; Stop 11/09/17 at 06:54; Status DC Phenylephrine HCl (Mike-Synephrine Inj) 10 mg STK-MED ONCE .ROUTE ; Start at 06:53; Stop 11/09/17 at 06:54; Status DC Phenylephrine HCl (Mike-Synephrine Inj) 10 mg STK-MED ONCE .ROUTE ; Start at 06:53; Stop 11/09/17 at 06:54; Status DC Isoflurane (Isoflurane) 60 ml STK-MED ONCE IH ; Start 11/09/17 at 06:53; Stop at 06:54; Status DC Sufentanil Citrate (Sufenta) 100 mcg STK-MED ONCE .ROUTE ; Start 11/09/17 at 06: 54; Stop 11/09/17 at 06:55; Status DC Ephedrine Sulfate (ePHEDrine PF IN SALINE SYRINGE) 50 mg STK-MED ONCE IV ; Start 11/09/17 at 06:54; Stop 11/09/17 at 06:55; Status DC Vancomycin HCl (VANCO for OR ONLY) 10 gm STK-MED ONCE .ROUTE Last administered on 11/09/17at 09:04; Start 11/09/17 at 06:07; Stop 11/09/17 at 07:08; Status DC Cellulose (Surgicel Hemostat 4x8) 1 each STK-MED ONCE .ROUTE Last administered on 11/09/17at 09:04; Start 11/09/17 at 06:07; Stop 11/09/17 at 07:08; Status DC Papaverine HCl 60 mg STK-MED ONCE .ROUTE Last administered on 11/09/17at 09:04; Start 11/09/17 at 06:07; Stop 11/09/17 at 07:08; Status DC Aspirin (Aspirin) 300 mg STK-MED ONCE .ROUTE Last administered on 11/09/17at 13: 03; Start 11/09/17 at 06:07; Stop 11/09/17 at 07:08; Status DC Sodium Chloride (SODIUM CHLORIDE 20ml) 20 ml STK-MED ONCE IJ Last administered on 11/09/17at 09:04; Start 11/09/17 at 06:08; Stop 11/09/17 at 07:09; Status DC Isoflurane (Isoflurane) 90 ml STK-MED ONCE IH ; Start 11/09/17 at 08:56; Stop at 08:57; Status DC Midazolam HCl (Versed) 2 mg STK-MED ONCE .ROUTE ; Start 11/09/17 at 08:57; Stop 11/09/17 at 08:58; Status DC Sufentanil Citrate (Sufenta) 100 mcg STK-MED ONCE .ROUTE ; Start 11/09/17 at 09: 17; Stop 11/09/17 at 09:18; Status DC Nitroglycerin/ Dextrose (Nitroglycerin Drip) 50 mg STK-MED ONCE IV ; Start 11/09 at 09:23; Stop 11/09/17 at 09:24; Status DC Protamine Sulfate (Protamine) 250 mg STK-MED ONCE IV ; Start 11/09/17 at 09:27; Stop 11/09/17 at 09:28; Status DC Rocuronium Magdalena (Zemuron) 100 mg STK-MED ONCE .ROUTE ; Start 11/09/17 at 09: 30; Stop 11/09/17 at 09:31; Status DC Protamine Sulfate (Protamine) 50 mg STK-MED ONCE IV ; Start 11/09/17 at 10:02; Stop 11/09/17 at 10:03; Status DC Protamine Sulfate (Protamine) 50 mg STK-MED ONCE IV ; Start 11/09/17 at 11:51; Stop 11/09/17 at 11:52; Status DC Lidocaine HCl (Lidocaine Pf 2% Vial) 5 ml STK-MED ONCE .ROUTE ; Start 11/09/17 at 12:10; Stop 11/09/17 at 12:11; Status DC Magnesium Sulfate 5 gm STK-MED ONCE .ROUTE ; Start 11/09/17 at 12:10; Stop 11/09 at 12:11; Status DC Heparin Sodium (Porcine) 30,000 unit STK-MED ONCE .ROUTE ; Start 11/09/17 at 12: 10; Stop 11/09/17 at 12:11; Status DC Mannitol (Mannitol) 12.5 g STK-MED ONCE .ROUTE ; Start 11/09/17 at 12:10; Stop 11/09/17 at 12:11; Status DC Albumin Human 100 ml @ As Directed STK-MED ONCE IV ; Start 11/09/17 at 12:10; Stop 11/09/17 at 12:11; Status DC Calcium Chloride (Calcium Chloride) 1,000 mg STK-MED ONCE .ROUTE ; Start at 12:10; Stop 11/09/17 at 12:11; Status DC Magnesium Sulfate 5 gm STK-MED ONCE .ROUTE ; Start 11/09/17 at 12:10; Stop 11/09 at 12:11; Status DC Sodium Chloride (Normal Saline Flush) 3 ml PRN Q12HR PRN IV AFTER MEDS AND BLOOD DRAWS; Start 11/09/17 at 12:30 Ringer's Solution 1,000 ml @ 30 mls/hr Q24H IV Last administered on 11/09/17at 21:33; Start 11/09/17 at 12:19 Albumin Human 250 ml @ 60 mls/hr PRN Q4HRS PRN IV SEE I/O RECORD Last administered on 11/09/17at 15:26; Start 11/09/17 at 12:30 Insulin Human Regular 150 unit/ Sodium Chloride 151.5 ml @ 0 mls/hr CONT PRN PRN IV SEE I/O RECORD; Start 11/09/17 at 12:30 Dextrose (Dextrose 50%-Water Syringe) 25 gm PRN Q15MIN PRN IV LOW BLOOD SUGAR; Start 11/09/17 at 12:30; Stop 11/10/17 at 13:16; Status DC Info (Icu Electrolyte Protocol) 1 ea CONT PRN PRN MC SEE COMMENTS; Start at 12:30 Magnesium Sulfate/ Dextrose 100 ml @ 100 mls/hr PRN DAILY PRN IV FOR MAG < 2.2 ; Start 11/09/17 at 12:30 Famotidine (Pepcid Vial) 20 mg BID IVP Last administered on 11/10/17at 09:22; Start 11/09/17 at 21:00 Ondansetron HCl (Zofran) 4 mg PRN Q4HRS PRN IV NAUSEA/VOMITING 1ST CHOICE Last administered on 11/09/17at 17:44; Start 11/09/17 at 12:30 Prochlorperazine Edisylate (Compazine) 10 mg PRN Q6HRS PRN IV NAUSEA/VOMITING 2ND CHOICE Last administered on 11/10/17at 12:35; Start 11/09/17 at 12:30 Morphine Sulfate (Morphine Sulfate) 2 mg PRN Q1HR PRN IV PAIN MILD Last administered on 11/10/17at 09:22; Start 11/09/17 at 12:30 Meperidine HCl (Demerol) 12.5 mg PRN Q15MIN PRN IV SHIVERING Last administered on 11/09/17at 14:17; Start 11/09/17 at 12:30; Stop 11/09/17 at 14:17; Status DC Propofol 100 ml @ 0 mls/hr CONT PRN PRN IV POSTOP SEDATION UNTIL EXTUBATE Last administered on 11/09/17at 14:02; Start 11/09/17 at 12:30 Senna/Docusate Sodium (Senna Plus) 1 tab BID PO Last administered on 11/10/17 09:22; Start 11/09/17 at 21:00 Bisacodyl (Dulcolax Supp) 10 mg PRN DAILY PRN LA NO BOWEL MOVEMENT; Start 11/09 at 12:30 Chlorhexidine Gluconate (Peridex) 15 ml BID MM ; Start 11/09/17 at 21:00 Aspirin (Ecotrin) 325 mg DAILYWBKFT PO Last administered on 11/10/17at 09:22; Start 11/10/17 at 08:00 Albuterol Sulfate (Ventolin Neb Soln) 2.5 mg PRN Q4HRS PRN NEB SHORTNESS OF BREATH; Start 11/09/17 at 12:30 Metoprolol Tartrate (Lopressor) 25 mg BID PO Last administered on 11/10/17at 09: 23; Start 11/10/17 at 09:00; Stop 11/10/17 at 13:52; Status DC Nicardipine HCl 50 mg/Sodium Chloride 270 ml @ 0 mls/hr CONT PRN PRN IV PER PROTOCOL; Start 11/09/17 at 12:30 Oxycodone/ Acetaminophen (Percocet 5/325) 1 tab PRN Q4HRS PRN PO MILD PAIN Last administered on 11/10/17at 08:05; Start 11/09/17 at 12:30 Oxycodone/ Acetaminophen (Percocet 5/325) 2 tab PRN Q4HRS PRN PO MODERATE PAIN , SEVERE PAIN Last administered on 11/10/17at 01:54; Start 11/09/17 at 12:30 Cefazolin Sodium/ Dextrose 50 ml @ 100 mls/hr Q8H IV ; Start 11/09/17 at 14:30 ; Stop 11/09/17 at 14:30; Status DC Polyethylene Glycol (miraLAX PACKET) 17 gm DAILY PO Last administered on at 09:23; Start 11/10/17 at 09:00 Amiodarone HCl 150 mg/Dextrose 103 ml @ 618 mls/hr 1X ONCE IV Last administered on 11/09/17at 14:41; Start 11/09/17 at 13:15; Stop 11/09/17 at 13:29 ; Status DC Amiodarone HCl 900 mg/Dextrose 518 ml @ 0 mls/hr CONT PRN IV SEE I/O RECORD Last administered on 11/09/17at 14:55; Start 11/09/17 at 13:30; Stop 11/09/17 at 14:55; Status DC Cefazolin Sodium/ Dextrose 50 ml @ 100 mls/hr Q8H IV Last administered on 11/10at 13:24; Start 11/09/17 at 20:00; Stop 11/11/17 at 04:29 Sodium Bicarbonate (Sodium Bicarb Adult 8.4% Syr) 100 meq 1X ONCE IV Last administered on 11/09/17at 14:06; Start 11/09/17 at 14:00; Stop 11/09/17 at 14:01 ; Status DC Potassium Chloride/Water 50 ml @ 50 mls/hr Q1H IV Last administered on at 19:57; Start 11/09/17 at 18:00; Stop 11/09/17 at 19:59; Status DC Albumin Human 500 ml @ 125 mls/hr 1X ONCE IV Last administered on 11/10/17at 00:39; Start 11/10/17 at 00:30; Stop 11/10/17 at 04:29; Status DC Potassium Chloride/Water 50 ml @ 50 mls/hr 1X ONCE IV Last administered on 02/17at 09:22; Start 11/10/17 at 08:00; Stop 11/10/17 at 08:59; Status DC Magnesium Sulfate 50 ml @ 25 mls/hr 1X ONCE IV Last administered on 11/10/17at 12:26; Start 11/10/17 at 08:00; Stop 11/10/17 at 09:59; Status DC Amiodarone HCl (Cordarone) 200 mg BID PO ; Start 11/10/17 at 12:00; Stop at 13:52; Status DC Furosemide (Lasix) 20 mg 1X ONCE IVP Last administered on 11/10/17at 12:26; Start 11/10/17 at 11:45; Stop 11/10/17 at 11:46; Status DC Insulin Human Lispro (HumaLOG) 0-7 UNITS TIDWMEALS SQ Last administered on 11/10at 13:26; Start 11/10/17 at 13:30 Dextrose (Dextrose 50%-Water Syringe) 12.5 gm PRN Q15MIN PRN IV SEE COMMENTS; Start 11/10/17 at 13:15 Dopamine HCl/ Dextrose 250 ml @ 7.28 mls/hr CONT PRN IV SEE I/O RECORD Last administered on 11/10/17at 13:49; Start 11/10/17 at 13:45; Stop 11/10/17 at 14:17 ; Status DC Furosemide (Lasix) 20 mg DAILY IVP ; Start 11/10/17 at 14:00 Dopamine HCl/ Dextrose 250 ml @ 7.28 mls/hr CONT PRN IV SEE I/O RECORD; Start 11/10/17 at 14:30; Status UNV Active Scripts Active Reported Loratadine 10 Mg Tablet 1 Tab PO DAILY Loratadine 10 Mg Tab.rapdis 10 Mg PO Vitamin D-3 (Cholecalciferol (Vitamin D3)) 2,000 Unit Capsule 2,000 Unit PO Aspirin 81 Mg Tab.chew 1 Tab PO DAILY Omeprazole 20 Mg Capsule.dr 1 Cap PO DAILY Metformin Hcl Er (Metformin Hcl) 1,000 Mg Tab.er.24 1,000 Mg PO [id number] Atorvastatin Calcium 80 Mg Tablet 80 Mg PO DAILY Levothyroxine Sodium 100 Mcg Tablet 100 Mcg PO DAILYAC Vitals/I & O Vital Sign - Last 24 Hours 11/09/17 11/09/17 11/09/17 11/09/17 14:30 14:30 14:31 14:41 Temp 99.1 99.1 Pulse 100 100 100 Resp 20 14 B/P (MAP) 134/67 (89) 134/67 (89) 111/55 Pulse Ox 100 100 O2 Delivery Ventilator Ventilator 11/09/17 11/09/17 11/09/17 11/09/17 14:54 15:00 15:00 15:30 Temp 99.6 99.6 Pulse 89 89 88 Resp 20 B/P (MAP) 99/49 (66) Pulse Ox 100 100 O2 Delivery Ventilator Ventilator 11/09/17 11/09/17 11/09/17 11/09/17 15:30 16:00 16:00 16:13 Temp 99.1 99.0 99.1 99.0 Pulse 88 88 88 Resp 16 20 B/P (MAP) 97/49 (65) 103/46 (65) Pulse Ox 100 100 100 O2 Delivery Ventilator Ventilator Ventilator 11/09/17 11/09/17 11/09/17 11/09/17 17:00 17:00 18:00 18:08 Temp 99.7 99.2 99.7 99.2 Pulse 91 91 82 Resp 22 12 12 B/P (MAP) 114/56 (75) 104/46 (65) Pulse Ox 100 100 100 O2 Delivery Nasal Cannula Nasal Cannula Nasal Cannula O2 Flow Rate 3.0 3.0 3.0 11/09/17 11/09/17 11/09/17 11/09/17 19:00 19:00 19:57 20:00 Temp 99.6 99.6 Pulse 81 Resp 14 12 B/P (MAP) 92/49 (63) Pulse Ox 100 100 O2 Delivery Nasal Cannula Nasal Cannula Nasal Cannula O2 Flow Rate 3.0 3.0 3.0 11/09/17 11/09/17 11/09/17 11/09/17 20:00 20:00 21:00 21:00 Temp 99.5 99.5 99.5 99.5 Pulse 80 80 Resp 12 10 B/P (MAP) 107/46 (66) 98/49 (65) Pulse Ox 100 100 O2 Delivery Nasal Cannula Nasal Cannula O2 Flow Rate 3.0 3.0 11/09/17 11/09/17 11/09/17 11/09/17 21:23 22:00 22:00 23:00 Temp 99.4 99.2 99.4 99.2 Pulse 68 67 Resp 12 10 12 B/P (MAP) 102/49 (66) 100/47 (64) Pulse Ox 100 99 99 O2 Delivery Nasal Cannula Nasal Cannula Nasal Cannula O2 Flow Rate 3.0 3.0 3.0 11/09/17 11/10/17 11/10/17 11/10/17 23:00 00:00 00:00 00:00 Temp 99.2 99.2 Pulse 62 Resp 12 B/P (MAP) 97/45 (62) Pulse Ox 99 O2 Delivery Nasal Cannula Nasal Cannula O2 Flow Rate 3.0 3.0 11/10/17 11/10/17 11/10/17 11/10/17 01:00 01:00 01:54 02:00 Temp 98.9 98.8 98.9 98.8 Pulse 62 60 Resp 13 16 10 B/P (MAP) 101/45 (63) 107/45 (65) Pulse Ox 99 100 100 O2 Delivery Nasal Cannula Nasal Cannula Nasal Cannula O2 Flow Rate 3.0 3.0 3.0 11/10/17 11/10/17 11/10/17 11/10/17 02:00 02:54 03:00 03:00 Temp 98.7 98.7 Pulse 57 Resp 12 12 B/P (MAP) 113/47 (69) Pulse Ox 99 100 O2 Delivery Nasal Cannula Nasal Cannula O2 Flow Rate 3.0 3.0 811/10/17 11/10/17 11/10/17 04:00 04:00 04:00 05:00 Temp 98.7 98.7 Pulse 53 Resp 11 B/P (MAP) 105/45 (65) Pulse Ox 100 O2 Delivery Nasal Cannula Nasal Cannula O2 Flow Rate 3.0 3.0 11/10/17 11/10/17 11/10/17 11/10/17 05:00 06:00 06:00 06:19 Temp 98.5 98.3 98.5 98.3 Pulse 53 52 Resp 9 10 9 B/P (MAP) 109/44 (65) 115/50 (71) Pulse Ox 100 100 99 O2 Delivery Nasal Cannula Nasal Cannula Nasal Cannula O2 Flow Rate 3.0 3.0 3.0 11/10/17 11/10/17 11/10/17 11/10/17 07:00 07:00 08:00 08:00 Temp 98.7 98.7 Pulse 53 56 Resp 18 12 B/P (MAP) 121/50 (73) 118/50 (72) Pulse Ox 99 98 O2 Delivery Nasal Cannula Nasal Cannula Nasal Cannula O2 Flow Rate 3.0 2.0 2.0 11/10/17 11/10/17 11/10/17 11/10/17 08:00 08:05 09:00 09:00 Pulse 56 Resp 18 16 18 B/P (MAP) 128/61 (83) Pulse Ox 99 95 99 O2 Delivery Nasal Cannula Nasal Cannula Nasal Cannula O2 Flow Rate 3.0 2.0 3.0 11/10/17 11/10/17 11/10/17 11/10/17 09:22 09:23 09:52 10:00 Pulse 57 52 Resp 18 16 11 B/P (MAP) 128/61 122/56 (78) Pulse Ox 99 98 98 O2 Delivery Nasal Cannula Nasal Cannula Nasal Cannula O2 Flow Rate 3.0 2.0 2.0 11/10/17 11/10/17 11/10/17 11/10/17 11:00 11:45 12:00 12:00 Temp 98.2 98.2 Pulse 50 54 48 Resp 14 15 18 B/P (MAP) 98/49 (65) 119/53 (75) 139/66 (90) Pulse Ox 98 98 97 O2 Delivery Nasal Cannula Nasal Cannula Nasal Cannula Nasal Cannula O2 Flow Rate 2.0 2.0 2.0 2.0 11/10/17 11/10/17 11/10/17 12:15 13:00 14:00 Pulse 48 49 68 Resp 11 12 12 B/P (MAP) 121/63 (82) 99/48 (65) 158/65 (96) Pulse Ox 96 97 96 O2 Delivery Nasal Cannula Nasal Cannula Nasal Cannula O2 Flow Rate 2.0 2.0 2.0 Intake and Output 11/09/17 11/09/17 11/10/17 15:00 23:00 07:00 Intake Total 1652 ml Output Total 1083 ml 941 ml 500 ml Balance -1083 ml 711 ml -500 ml BROOKE BETHEA MD Nov 10, 2017 14:23
[2017-11-10] MEDS ORDERED: ISOPROTERENOL 1 MG in IV DEXTROSE 5% 250 ML IV PRN (18:30)
[2017-11-11] VITALS (25 sets, daily range): BP systolic 84–144; BP diastolic 46–72
[2017-11-11] MEDS: oxyCODONE/APAP 5/325 1 TAB TABLET PO PRN ×7 (00:10→21:25)
[2017-11-11] MEDS: MORPHINE SULFATE 2 MG/ML VIAL. IV PRN (00:37)
[2017-11-11] MEDS: ONDANSETRON PF 4 MG/2 ML VIAL. IV PRN (00:37)
[2017-11-11] MEDS: LEVOTHYROXINE 100 MCG TABLET PO SCH (06:06)
[2017-11-11] MEDS: POLYETHYLENE GLYCOL 3350 17 GM PACKET. PO SCH (07:49)
[2017-11-11] MEDS: FAMOTIDINE 20 MG/2 ML VIAL IVP SCH (07:50)
[2017-11-11] MEDS: FUROSEMIDE 20 MG/2 ML VIAL. IVP SCH (07:50)
[2017-11-11] MEDS: ASPIRIN ENTERIC COATED 325 MG TABLET.DR. PO SCH (07:50)
[2017-11-11] MEDS: SENNOSIDES/DOCUSATE 8.6/50MG TABLET. PO SCH ×2 (07:50→21:00)
[2017-11-11] MEDS: CETIRIZINE HCL 10 MG TABLET. PO SCH (07:50)
[2017-11-11] MEDS: PANTOPRAZOLE 40 MG TABLET.DR. PO SCH (07:50)
--- NOTE | 2017-11-11 07:52 | RAD ---
Portable chest, 11/11/2017: HISTORY: Postop evaluation Comparison is made to a study from 11/10/2017. The mediastinal drains have been removed. A left chest tube remains in place. The heart is enlarged. The pulmonary vascularity is normal. There is only minimal residual left basilar atelectasis. No new pulmonary abnormality is seen. No significant pneumothorax or pleural fluid is evident. IMPRESSION: 1. Minimal residual left basilar atelectasis. 2. The postoperative chest is otherwise unremarkable. Electronically signed by: Alin Morgan MD (11/11/2017 7:48 AM) [facility]
[2017-11-11] MEDS: INSULIN LISPRO 300 UNITS/3 ML INSULN.PEN. SQ SCH ×3 (08:00→17:00)
[2017-11-11 09:58] LABS: CREATININE 0.7 mg/dL (0.6-1.0); GFR 84.2; MAGNESIUM 1.7 mg/dL (1.8-2.4)
[2017-11-11] MEDS: POTASSIUM CHLORIDE 10MEQ 100 ML IV SCH ×2 (10:45→12:00)
[2017-11-11] MEDS ORDERED: MAGNESIUM SULFATE 2GM 50 ML IV ONE (11:00)
[2017-11-11] MEDS: IV RINGERS,LACTATED 1000ML 1,000 ML IV SCH (12:19)
[2017-11-11] MEDS: KETOROLAC 15 MG/ML VIAL. IV PRN (12:31)
--- NOTE | 2017-11-11 14:12 | PDOC ---
PROGRESS NOTES Subjective Subjective Patient seen and examined The patient looks and feels better today. Objective Objective Vital Signs Date Time Temp Pulse Resp B/P (MAP) Pulse Ox O2 Delivery O2 Flow Rate FiO2 11/11/17 13:00 98 11 106/60 (75) 98 Nasal Cannula 2.0 11/11/17 12:00 98.0 98.0 Intake and Output 11/11/17 07:00 Intake Total 1694 ml Output Total 1890 ml Balance -196 ml Intake Oral 850 ml IV Total 844 ml Output Urine Total 1510 ml Chest Tube Drainage Total 380 ml Physical Exam Abdomen: Normal bowel sounds Heart: Regular rate General: mild distress Lungs: Clear to auscultation Assessment Assessment 1. Multivessel coronary disease including an LAD lesion. As post bypass surgery. Postop day 2. Extubated. Previous mild bradycardia and started on dopamine as per CV surgery. Postop management as per CV surgery. 2. Diabetes mellitus. Sliding scale insulin. 3. Hyperlipidemia. Statins. 4. Hypertension. Controlled. 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 Comment Review of Relevant I have reviewed the following items asad (where applicable) has been applied. Labs Laboratory Tests Test 11/09/17 15:15 11/09/17 16:00 11/09/17 16:50 11/09/17 17:15 Glucose (Fingerstick) 196 mg/dL (70-99) 159 mg/dL (70-99) O2 Saturation 97 % (92-99) Arterial Blood pH 7.35 (7.35-7.45) Arterial Blood pCO2 at Patient Temp 48 mmHg (35-46) Arterial Blood pO2 at Patient Temp 118 mmHg (65-108) Arterial Blood HCO3 26 mmol/L (21-28) Arterial Blood Base Excess 0 mmol/L (-3-3) FiO2 40 Hematocrit 31.5 % (36.0-47.0) Potassium Level 3.7 mmol/L (3.5-5.1) Test 11/09/17 17:20 11/09/17 18:15 11/09/17 19:25 11/09/17 20:37 Glucose (Fingerstick) 165 mg/dL (70-99) 167 mg/dL (70-99) 170 mg/dL (70-99) 166 mg/dL (70-99) Test 11/09/17 23:12 8/11/18 00:08 11/10/17 01:09 11/10/17 02:12 Glucose (Fingerstick) 161 mg/dL (70-99) 149 mg/dL (70-99) 140 mg/dL (70-99) 138 mg/dL (70-99) Test 11/10/17 03:23 11/10/17 04:12 11/10/17 06:00 11/10/17 06:20 Glucose (Fingerstick) 144 mg/dL (70-99) 141 mg/dL (70-99) 142 mg/dL (70-99) White Blood Count 12.7 x10^3/uL (4.0-11.0) Red Blood Count 3.43 x10^6/uL (3.50-5.40) Hemoglobin 9.9 g/dL (12.0-15.5) Hematocrit 29.3 % (36.0-47.0) Mean Corpuscular Volume 85 fL (79-100) Mean Corpuscular Hemoglobin 29 pg (25-35) Mean Corpuscular Hemoglobin Concent 34 g/dL (31-37) Red Cell Distribution Width 14.0 % (11.5-14.5) Platelet Count 168 x10^3/uL (140-400) Sodium Level 139 mmol/L (136-145) Potassium Level 4.2 mmol/L (3.5-5.1) Chloride Level 107 mmol/L (98-107) Carbon Dioxide Level 24 mmol/L (21-32) Anion Gap 8 (6-14) Blood Urea Nitrogen 11 mg/dL (7-20) Creatinine 0.7 mg/dL (0.6-1.0) Estimated GFR (Cockcroft-Gault) 84.2 Glucose Level 146 mg/dL (70-99) Calcium Level 8.5 mg/dL (8.5-10.1) Magnesium Level 1.8 mg/dL (1.8-2.4) Test 11/10/17 09:07 11/10/17 11:58 11/10/17 15:56 11/11/17 07:59 Glucose (Fingerstick) 132 mg/dL (70-99) 164 mg/dL (70-99) 159 mg/dL (70-99) 142 mg/dL (70-99) Test 11/11/17 09:39 Sodium Level 135 mmol/L (136-145) Potassium Level 4.0 mmol/L (3.5-5.1) Chloride Level 100 mmol/L (98-107) Carbon Dioxide Level 29 mmol/L (21-32) Anion Gap 6 (6-14) Blood Urea Nitrogen 11 mg/dL (7-20) Creatinine 0.7 mg/dL (0.6-1.0) Estimated GFR (Cockcroft-Gault) 84.2 Glucose Level 160 mg/dL (70-99) Calcium Level 8.0 mg/dL (8.5-10.1) Magnesium Level 1.7 mg/dL (1.8-2.4) Laboratory Tests Test 11/10/17 15:56 11/11/17 07:59 11/11/17 09:39 Glucose (Fingerstick) 159 mg/dL (70-99) 142 mg/dL (70-99) Sodium Level 135 mmol/L (136-145) Potassium Level 4.0 mmol/L (3.5-5.1) Chloride Level 100 mmol/L (98-107) Carbon Dioxide Level 29 mmol/L (21-32) Anion Gap 6 (6-14) Blood Urea Nitrogen 11 mg/dL (7-20) Creatinine 0.7 mg/dL (0.6-1.0) Estimated GFR (Cockcroft-Gault) 84.2 Glucose Level 160 mg/dL (70-99) Calcium Level 8.0 mg/dL (8.5-10.1) Magnesium Level 1.7 mg/dL (1.8-2.4) Medications Current Medications Iodixanol (Visipaque 320) 100 ml STK-MED ONCE .ROUTE ; Start 11/07/17 at 07:10; Stop 11/07/17 at 07:11; Status DC Lidocaine HCl (Lidocaine 1% Pf) 30 ml STK-MED ONCE .ROUTE ; Start 11/07/17 at 07: 10; Stop 11/07/17 at 07:11; Status DC Heparin Sodium/ Sodium Chloride 1,500 ml @ As Directed STK-MED ONCE .ROUTE ; Start 11/07/17 at 07:10; Stop 11/07/17 at 07:11; Status DC Fentanyl Citrate (Fentanyl 2ml Vial) 100 mcg STK-MED ONCE .ROUTE ; Start at 07:19; Stop 11/07/17 at 07:20; Status DC Midazolam HCl (Versed) 5 mg STK-MED ONCE .ROUTE ; Start 11/07/17 at 07:19; Stop 11/07/17 at 07:20; Status DC Heparin Sodium (Porcine) (Heparin Sodium) 10,000 unit STK-MED ONCE .ROUTE ; Start 11/07/17 at 07:31; Stop 11/07/17 at 07:33; Status DC Verapamil HCl (Verapamil) 5 mg STK-MED ONCE .ROUTE ; Start 11/07/17 at 07:31; Stop 11/07/17 at 07:33; Status DC Nitroglycerin (Nitroglycerin) 200 mcg STK-MED ONCE .ROUTE ; Start 11/07/17 at 07: 31; Stop 11/07/17 at 07:33; Status DC Heparin Sodium/ Sodium Chloride (HEPARIN for ARTERIAL LINE FLUSH) 1,000 unit 1X ONCE IART Last administered on 11/07/17at 09:06; Start 11/07/17 at 08:30; Stop 11/07/17 at 08:31; Status DC Heparin Sodium/ Sodium Chloride (HEPARIN for ARTERIAL LINE FLUSH) 1,000 unit 1X ONCE IART Last administered on 11/07/17at 09:06; Start 11/07/17 at 08:30; Stop 11/07/17 at 08:31; Status DC Midazolam HCl (Versed) 5 mg 1X ONCE IV Last administered on 11/07/17at 09:06; Start 11/07/17 at 08:30; Stop 11/07/17 at 08:31; Status DC Fentanyl Citrate (Fentanyl 2ml Vial) 100 mcg 1X ONCE IV Last administered on at 09:07; Start 11/07/17 at 08:30; Stop 11/07/17 at 08:31; Status DC Iodixanol (Visipaque 320) 100 ml 1X ONCE IART Last administered on 11/07/17at 09 :07; Start 11/07/17 at 08:30; Stop 11/07/17 at 08:31; Status DC Lidocaine HCl 20 ml 1X ONCE IJ ; Start 11/07/17 at 08:30; Stop 11/07/17 at 09:08 ; Status DC Info (CONTRAST GIVEN -- Rx MONITORING) 1 each PRN DAILY PRN MC SEE COMMENTS; Start 11/07/17 at 08:30; Stop 11/09/17 at 08:29; Status DC Lidocaine HCl (Lidocaine 1% Pf) 20 ml 1X ONCE INJ Last administered on at 09:15; Start 11/07/17 at 09:15; Stop 11/07/17 at 09:16; Status DC Sodium Chloride (Normal Saline Flush) 3 ml QSHIFT PRN IV AFTER MEDS AND BLOOD DRAWS; Start 11/07/17 at 10:00; Stop 11/09/17 at 12:19; Status DC Sodium Chloride 1,000 ml @ 60 mls/hr [id number] IV Last administered on 11/08/17at 02:32; Start 11/07/17 at 09:52; Stop 11/08/17 at 18:54; Status DC Aspirin (Ecotrin) 81 mg DAILYWBKFT PO Last administered on 11/08/17at 09:35; Start 11/07/17 at 10:15; Stop 11/09/17 at 12:17; Status DC Metoprolol Tartrate (Lopressor) 12.5 mg BID PO Last administered on 11/08/17at 20 :51; Start 11/07/17 at 10:15; Stop 11/08/17 at 22:00; Status DC Lisinopril (Prinivil) 5 mg DAILY PO Last administered on 11/07/17at 10:32; Start 11/07/17 at 10:15; Stop 11/07/17 at 14:40; Status DC Atorvastatin Calcium (Lipitor) 80 mg QHS PO Last administered on 11/08/17at 20:51 ; Start 11/07/17 at 21:00; Stop 11/09/17 at 12:19; Status DC Acetaminophen (Tylenol) 650 mg PRN Q6HRS PRN PO MILD PAIN Last administered on 11/08/17at 06:25; Start 11/07/17 at 10:00; Stop 11/09/17 at 12:19; Status DC Nitroglycerin (Nitrostat) 0.4 mg PRN Q5MIN PRN SL CHEST PAIN; Start 11/07/17 at 10:00; Stop 11/09/17 at 12:17; Status DC Levothyroxine Sodium (Synthroid) 100 mcg DAILY06 PO Last administered on at 06:06; Start 11/07/17 at 10:30 Cetirizine HCl (ZyrTEC) 10 mg DAILY PO Last administered on 11/11/17at 07:50; Start 11/07/17 at 15:00 Pantoprazole Sodium (Protonix) 40 mg DAILYAC PO Last administered on 11/11/17at 07:50; Start 11/07/17 at 15:00 Zolpidem Tartrate (Ambien) 5 mg PRN QHS PRN PO INSOMNIA, MAY REPEAT IN 1HR Last administered on 11/08/17at 22:30; Start 11/07/17 at 15:45; Stop 11/09/17 at 12 :17; Status DC Cefazolin Sodium/ Dextrose 50 ml @ 100 mls/hr 1X ONCE IV Last administered on 11/09/17at 08:23; Start 11/09/17 at 06:00; Stop 11/09/17 at 12:19; Status DC Insulin Human Lispro (HumaLOG) 0-5 UNITS TIDWMEALS SQ ; Start 11/07/17 at 17:00; Stop 11/09/17 at 12:18; Status DC Dextrose (Dextrose 50%-Water Syringe) 12.5 gm PRN Q15MIN PRN IV SEE COMMENTS; Start 11/07/17 at 16:00; Stop 11/09/17 at 12:18; Status DC Heparin Sodium/ Dextrose 500 ml @ 0 mls/hr CONT PRN IV SEE I/O RECORD Last administered on 11/08/17at 17:53; Start 11/07/17 at 16:45; Stop 11/08/17 at 23:55; Status DC Heparin Sodium (Porcine) (Heparin Sodium) 2,300 unit PRN Q6HRS PRN IV FOR UFH LEVEL LESS THAN 0.2; Start 11/07/17 at 16:45; Stop 11/08/17 at 23:55; Status DC Potassium Chloride 70 meq/ Sodium Bicarbonate 12.5 meq/Lidocaine HCl 24 ml/ Parenteral Electrolytes 571.5 ml @ 571.5 mls/ hr 1X ONCE IRR Last administered on 11/09/17at 10:31; Start 11/09/17 at 06:00; Stop 11/09/17 at 06:59 ; Status DC Potassium Chloride 15 meq/ Sodium Bicarbonate 12.5 meq/Parenteral Electrolytes 520 ml @ 520 mls/hr 1X ONCE IRR Last administered on 11/09/17at 10:31; Start 11/09/17 at 06:00; Stop 11/09/17 at 06:59; Status DC Heparin Sodium (Porcine) 38950 unit/Sodium Chloride 1,020 ml @ 1,020 mls/hr 1X ONCE IRR Last administered on 11/09/17at 09:04; Start 11/09/17 at 06:00; Stop 11/09/17 at 06:59; Status DC Cefazolin Sodium 1 gm/Sodium Chloride 500 ml @ 500 mls/hr 1X ONCE IRR Last administered on 11/09/17at 09:04; Start 11/09/17 at 06:00; Stop 11/09/17 at 06:59 ; Status DC Vancomycin HCl (VANCO for OR ONLY) 10 gm 1X ONCE CEMENT ; Start 11/09/17 at 06: 00; Stop 11/09/17 at 06:01; Status DC Tranexamic Acid 1000 mg/Sodium Chloride 60 ml @ 60 mls/hr 1X PERIOP ONCE INJ ; Start 11/09/17 at 06:00; Stop 11/09/17 at 06:59; Status DC Alprazolam (Xanax) 0.25 mg PRN Q8HRS PRN PO ANXIETY / AGITATION; Start 11/08/17 at 11:30 Prochlorperazine Edisylate (Compazine) 5 mg PACU PRN PRN IV NAUSEA, MRX1; Start 11/09/17 at 07:00; Stop 11/10/17 at 06:59; Status DC Lidocaine HCl (Xylocaine-Mpf 1% Vial) 2 ml PRN 1X PRN ID IV START; Start at 07:00; Stop 11/10/17 at 06:59; Status DC Ringer's Solution 1,000 ml @ 30 mls/hr Q24H IV Last administered on 11/09/17at 06:44; Start 11/09/17 at 07:00; Stop 11/09/17 at 15:08; Status DC Fentanyl Citrate (Fentanyl 2ml Vial) 50 mcg PRN Q5MIN PRN IV MODERATE TO SEVERE PAIN; Start 11/09/17 at 07:00; Stop 11/10/17 at 06:59; Status DC Fentanyl Citrate (Fentanyl 2ml Vial) 25 mcg PRN Q5MIN PRN IV MILD PAIN; Start 11/09/17 at 07:00; Stop 11/10/17 at 06:59; Status DC Ondansetron HCl (Zofran) 4 mg PRN Q6HRS PRN IV NAUSEA/VOMITING; Start 11/09/17 at 07:00; Stop 11/09/17 at 12:50; Status DC Insulin Human Regular 150 unit/ Sodium Chloride 151.5 ml @ 0 mls/hr CONT PRN IV SEE I/O RECORD; Start 11/09/17 at 07:00; Stop 11/09/17 at 15:08; Status DC Heparin Sodium (Porcine) 30,000 unit STK-MED ONCE .ROUTE ; Start 11/09/17 at 06: 43; Stop 11/09/17 at 06:44; Status DC Rocuronium [place] (Zemuron) 100 mg STK-MED ONCE .ROUTE ; Start 11/09/17 at 06: 46; Stop 11/09/17 at 06:47; Status DC Fentanyl Citrate (Fentanyl 2ml Vial) 100 mcg STK-MED ONCE .ROUTE ; Start at 06:46; Stop 11/09/17 at 06:47; Status DC Midazolam HCl (Versed) 2 mg STK-MED ONCE .ROUTE ; Start 11/09/17 at 06:46; Stop 11/09/17 at 06:48; Status DC Aminocaproic Acid (Amicar) 5,000 mg STK-MED ONCE IV ; Start 11/09/17 at 06:52; Stop 11/09/17 at 06:53; Status DC Aminocaproic Acid (Amicar) 5,000 mg STK-MED ONCE IV ; Start 11/09/17 at 06:52; Stop 11/09/17 at 06:53; Status DC Aminocaproic Acid (Amicar) 5,000 mg STK-MED ONCE IV ; Start 11/09/17 at 06:52; Stop 11/09/17 at 06:53; Status DC Etomidate (Amidate) 20 mg STK-MED ONCE IV ; Start 11/09/17 at 06:52; Stop at 06:53; Status DC Heparin Sodium (Porcine) (Heparin Sodium) 10,000 unit STK-MED ONCE .ROUTE ; Start 11/09/17 at 06:52; Stop 11/09/17 at 06:53; Status DC Heparin Sodium (Porcine) 30,000 unit STK-MED ONCE .ROUTE ; Start 11/09/17 at 06: 52; Stop 11/09/17 at 06:53; Status DC Heparin Sodium (Porcine) 30,000 unit STK-MED ONCE .ROUTE ; Start 11/09/17 at 06: 52; Stop 11/09/17 at 06:53; Status DC Nitroglycerin/ Dextrose 0 ml @ As Directed STK-MED ONCE IV ; Start 11/09/17 at 06:52; Stop 11/09/17 at 06:54; Status DC Phenylephrine HCl (Mike-Synephrine Inj) 10 mg STK-MED ONCE .ROUTE ; Start at 06:53; Stop 11/09/17 at 06:54; Status DC Phenylephrine HCl (Mike-Synephrine Inj) 10 mg STK-MED ONCE .ROUTE ; Start at 06:53; Stop 11/09/17 at 06:54; Status DC Phenylephrine HCl (Mike-Synephrine Inj) 10 mg STK-MED ONCE .ROUTE ; Start at 06:53; Stop 11/09/17 at 06:54; Status DC Isoflurane (Isoflurane) 60 ml STK-MED ONCE IH ; Start 11/09/17 at 06:53; Stop at 06:54; Status DC Sufentanil Citrate (Sufenta) 100 mcg STK-MED ONCE .ROUTE ; Start 11/09/17 at 06: 54; Stop 11/09/17 at 06:55; Status DC Ephedrine Sulfate (ePHEDrine PF IN SALINE SYRINGE) 50 mg STK-MED ONCE IV ; Start 11/09/17 at 06:54; Stop 11/09/17 at 06:55; Status DC Vancomycin HCl (VANCO for OR ONLY) 10 gm STK-MED ONCE .ROUTE Last administered on 11/09/17at 09:04; Start 11/09/17 at 06:07; Stop 11/09/17 at 07:08; Status DC Cellulose (Surgicel Hemostat 4x8) 1 each STK-MED ONCE .ROUTE Last administered on 11/09/17at 09:04; Start 11/09/17 at 06:07; Stop 11/09/17 at 07:08; Status DC Papaverine HCl 60 mg STK-MED ONCE .ROUTE Last administered on 11/09/17at 09:04; Start 11/09/17 at 06:07; Stop 11/09/17 at 07:08; Status DC Aspirin (Aspirin) 300 mg STK-MED ONCE .ROUTE Last administered on 11/09/17at 13: 03; Start 11/09/17 at 06:07; Stop 11/09/17 at 07:08; Status DC Sodium Chloride (SODIUM CHLORIDE 20ml) 20 ml STK-MED ONCE IJ Last administered on 11/09/17at 09:04; Start 11/09/17 at 06:08; Stop 11/09/17 at 07:09; Status DC Isoflurane (Isoflurane) 90 ml STK-MED ONCE IH ; Start 11/09/17 at 08:56; Stop at 08:57; Status DC Midazolam HCl (Versed) 2 mg STK-MED ONCE .ROUTE ; Start 11/09/17 at 08:57; Stop 11/09/17 at 08:58; Status DC Sufentanil Citrate (Sufenta) 100 mcg STK-MED ONCE .ROUTE ; Start 11/09/17 at 09: 17; Stop 11/09/17 at 09:18; Status DC Nitroglycerin/ Dextrose (Nitroglycerin Drip) 50 mg STK-MED ONCE IV ; Start 11/09 at 09:23; Stop 11/09/17 at 09:24; Status DC Protamine Sulfate (Protamine) 250 mg STK-MED ONCE IV ; Start 11/09/17 at 09:27; Stop 11/09/17 at 09:28; Status DC Rocuronium [place] (Zemuron) 100 mg STK-MED ONCE .ROUTE ; Start 11/09/17 at 09: 30; Stop 11/09/17 at 09:31; Status DC Protamine Sulfate (Protamine) 50 mg STK-MED ONCE IV ; Start 11/09/17 at 10:02; Stop 11/09/17 at 10:03; Status DC Protamine Sulfate (Protamine) 50 mg STK-MED ONCE IV ; Start 11/09/17 at 11:51; Stop 11/09/17 at 11:52; Status DC Lidocaine HCl (Lidocaine Pf 2% Vial) 5 ml STK-MED ONCE .ROUTE ; Start 11/09/17 at 12:10; Stop 11/09/17 at 12:11; Status DC Magnesium Sulfate 5 gm STK-MED ONCE .ROUTE ; Start 11/09/17 at 12:10; Stop 11/09 at 12:11; Status DC Heparin Sodium (Porcine) 30,000 unit STK-MED ONCE .ROUTE ; Start 11/09/17 at 12: 10; Stop 11/09/17 at 12:11; Status DC Mannitol (Mannitol) 12.5 g STK-MED ONCE .ROUTE ; Start 11/09/17 at 12:10; Stop 11/09/17 at 12:11; Status DC Albumin Human 100 ml @ As Directed STK-MED ONCE IV ; Start 11/09/17 at 12:10; Stop 11/09/17 at 12:11; Status DC Calcium Chloride (Calcium Chloride) 1,000 mg STK-MED ONCE .ROUTE ; Start at 12:10; Stop 11/09/17 at 12:11; Status DC Magnesium Sulfate 5 gm STK-MED ONCE .ROUTE ; Start 11/09/17 at 12:10; Stop 11/09 at 12:11; Status DC Sodium Chloride (Normal Saline Flush) 3 ml PRN Q12HR PRN IV AFTER MEDS AND BLOOD DRAWS; Start 11/09/17 at 12:30 Ringer's Solution 1,000 ml @ 30 mls/hr Q24H IV Last administered on 11/11/17at 12:19; Start 11/09/17 at 12:19 Albumin Human 250 ml @ 60 mls/hr PRN Q4HRS PRN IV SEE I/O RECORD Last administered on 11/09/17at 15:26; Start 11/09/17 at 12:30 Insulin Human Regular 150 unit/ Sodium Chloride 151.5 ml @ 0 mls/hr CONT PRN PRN IV SEE I/O RECORD; Start 11/09/17 at 12:30 Dextrose (Dextrose 50%-Water Syringe) 25 gm PRN Q15MIN PRN IV LOW BLOOD SUGAR; Start 11/09/17 at 12:30; Stop 11/10/17 at 13:16; Status DC Info ([facility] Electrolyte Protocol) 1 ea CONT PRN PRN MC SEE COMMENTS; Start at 12:30 Magnesium Sulfate/ Dextrose 100 ml @ 100 mls/hr PRN DAILY PRN IV FOR MAG < 2.2 Last administered on 11/11/17at 12:31; Start 11/09/17 at 12:30 Famotidine (Pepcid Vial) 20 mg BID IVP Last administered on 11/11/17at 07:50; Start 11/09/17 at 21:00 Ondansetron HCl (Zofran) 4 mg PRN Q4HRS PRN IV NAUSEA/VOMITING 1ST CHOICE Last administered on 11/11/17at 00:37; Start 11/09/17 at 12:30 Prochlorperazine Edisylate (Compazine) 10 mg PRN Q6HRS PRN IV NAUSEA/VOMITING 2ND CHOICE Last administered on 11/10/17at 12:35; Start 11/09/17 at 12:30 Morphine Sulfate (Morphine Sulfate) 2 mg PRN Q1HR PRN IV PAIN MILD Last administered on 11/11/17at 00:37; Start 11/09/17 at 12:30 Meperidine HCl (Demerol) 12.5 mg PRN Q15MIN PRN IV SHIVERING Last administered on 11/09/17at 14:17; Start 11/09/17 at 12:30; Stop 11/09/17 at 14:17; Status DC Propofol 100 ml @ 0 mls/hr CONT PRN PRN IV POSTOP SEDATION UNTIL EXTUBATE Last administered on 11/09/17at 14:02; Start 11/09/17 at 12:30 Senna/Docusate Sodium (Senna Plus) 1 tab BID PO Last administered on 11/11/17at 07:50; Start 11/09/17 at 21:00 Bisacodyl (Dulcolax Supp) 10 mg PRN DAILY PRN [place] NO BOWEL MOVEMENT; Start 11/09 at 12:30 Chlorhexidine Gluconate (Peridex) 15 ml BID MM ; Start 11/09/17 at 21:00; Stop 11/10/17 at 15:51; Status DC Aspirin (Ecotrin) 325 mg DAILYWBKFT PO Last administered on 11/11/17at 07:50; Start 11/10/17 at 08:00 Albuterol Sulfate (Ventolin Neb Soln) 2.5 mg PRN Q4HRS PRN NEB SHORTNESS OF BREATH; Start 11/09/17 at 12:30 Metoprolol Tartrate (Lopressor) 25 mg BID PO Last administered on 11/10/17at 09: 23; Start 11/10/17 at 09:00; Stop 11/10/17 at 13:52; Status DC Nicardipine HCl 50 mg/Sodium Chloride 270 ml @ 0 mls/hr CONT PRN PRN IV PER PROTOCOL; Start 11/09/17 at 12:30 Oxycodone/ Acetaminophen (Percocet 5/325) 1 tab PRN Q4HRS PRN PO MILD PAIN Last administered on 11/11/17at 10:23; Start 11/09/17 at 12:30 Oxycodone/ Acetaminophen (Percocet 5/325) 2 tab PRN Q4HRS PRN PO MODERATE PAIN , SEVERE PAIN Last administered on 11/10/17at 01:54; Start 11/09/17 at 12:30 Cefazolin Sodium/ Dextrose 50 ml @ 100 mls/hr Q8H IV ; Start 11/09/17 at 14:30 ; Stop 11/09/17 at 14:30; Status DC Polyethylene Glycol (miraLAX PACKET) 17 gm DAILY PO Last administered on at 07:49; Start 11/10/17 at 09:00 Amiodarone HCl 150 mg/Dextrose 103 ml @ 618 mls/hr 1X ONCE IV Last administered on 11/09/17at 14:41; Start 11/09/17 at 13:15; Stop 11/09/17 at 13:29 ; Status DC Amiodarone HCl 900 mg/Dextrose 518 ml @ 0 mls/hr CONT PRN IV SEE I/O RECORD Last administered on 11/09/17at 14:55; Start 11/09/17 at 13:30; Stop 11/09/17 at 14:55; Status DC Cefazolin Sodium/ Dextrose 50 ml @ 100 mls/hr Q8H IV Last administered on 11/11at 06:32; Start 11/09/17 at 20:00; Stop 11/11/17 at 04:29; Status DC Sodium Bicarbonate (Sodium Bicarb Adult 8.4% Syr) 100 meq 1X ONCE IV Last administered on 11/09/17at 14:06; Start 11/09/17 at 14:00; Stop 11/09/17 at 14:01 ; Status DC Potassium Chloride/Water 50 ml @ 50 mls/hr Q1H IV Last administered on at 19:57; Start 11/09/17 at 18:00; Stop 11/09/17 at 19:59; Status DC Albumin Human 500 ml @ 125 mls/hr 1X ONCE IV Last administered on 11/10/17at 00:39; Start 11/10/17 at 00:30; Stop 11/10/17 at 04:29; Status DC Potassium Chloride/Water 50 ml @ 50 mls/hr 1X ONCE IV Last administered on 02/17at 09:22; Start 11/10/17 at 08:00; Stop 11/10/17 at 08:59; Status DC Magnesium Sulfate 50 ml @ 25 mls/hr 1X ONCE IV Last administered on 11/10/17at 12:26; Start 11/10/17 at 08:00; Stop 11/10/17 at 09:59; Status DC Amiodarone HCl (Cordarone) 200 mg BID PO ; Start 11/10/17 at 12:00; Stop at 13:52; Status DC Furosemide (Lasix) 20 mg 1X ONCE IVP Last administered on 11/10/17at 12:26; Start 11/10/17 at 11:45; Stop 11/10/17 at 11:46; Status DC Insulin Human Lispro (HumaLOG) 0-7 UNITS TIDWMEALS SQ Last administered on 11/10at 15:59; Start 11/10/17 at 13:30 Dextrose (Dextrose 50%-Water Syringe) 12.5 gm PRN Q15MIN PRN IV SEE COMMENTS; Start 11/10/17 at 13:15 Dopamine HCl/ Dextrose 250 ml @ 7.28 mls/hr CONT PRN IV SEE I/O RECORD Last administered on 11/10/17at 13:49; Start 11/10/17 at 13:45; Stop 11/10/17 at 14:17 ; Status DC Furosemide (Lasix) 20 mg DAILY IVP Last administered on 11/11/17at 07:50; Start 11/10/17 at 14:00 Dopamine HCl/ Dextrose 250 ml @ 7.28 mls/hr CONT PRN IV SEE I/O RECORD; Start 11/10/17 at 14:30 Isoproterenol HCl 1 mg/Dextrose 255 ml @ 30.6 mls/hr CONT PRN IV SEE I/O RECORD; Start 11/10/17 at 18:30 Magnesium Sulfate 50 ml @ 25 mls/hr 1X ONCE IV Last administered on 11/11/17at 11:18; Start 11/11/17 at 11:00; Stop 11/11/17 at 12:59; Status DC Potassium Chloride/Water 100 ml @ 100 mls/hr Q1H IV Last administered on at 12:00; Start 11/11/17 at 11:00; Stop 11/11/17 at 12:59; Status DC Ketorolac Tromethamine (Toradol) 15 mg PRN Q6HRS PRN IV PAIN Last administered on 11/11/17at 12:31; Start 11/11/17 at 12:00; Stop 11/16/17 at 11:59 Metoprolol Tartrate (Lopressor) 12.5 mg BID PO ; Start 11/11/17 at 13:00 Active Scripts Active Reported Loratadine 10 Mg Tablet 1 Tab PO DAILY Loratadine 10 Mg Tab.rapdis 10 Mg PO Vitamin D-3 (Cholecalciferol (Vitamin D3)) 2,000 Unit Capsule 2,000 Unit PO Aspirin 81 Mg Tab.chew 1 Tab PO DAILY Omeprazole 20 Mg Capsule.dr 1 Cap PO DAILY Metformin Hcl Er (Metformin Hcl) 1,000 Mg Tab.er.24 1,000 Mg PO [id number] Atorvastatin Calcium 80 Mg Tablet 80 Mg PO DAILY Levothyroxine Sodium 100 Mcg Tablet 100 Mcg PO DAILYAC Vitals/I & O Vital Sign - Last 24 Hours 11/10/17 11/10/17 11/10/17 11/10/17 15:00 16:00 16:00 16:26 Temp 98.0 98.0 Pulse 69 79 Resp 12 15 15 B/P (MAP) 133/56 (81) 142/66 (91) Pulse Ox 97 98 98 O2 Delivery Nasal Cannula Nasal Cannula Nasal Cannula Nasal Cannula O2 Flow Rate 2.0 2.0 2.0 2.0 11/10/17 11/10/17 11/10/17 11/10/17 17:00 18:00 18:56 19:00 Temp 98.7 98.7 Pulse 66 74 79 Resp 13 14 16 15 B/P (MAP) 133/59 (83) 118/46 (70) 100/58 (72) Pulse Ox 98 99 96 96 O2 Delivery Nasal Cannula Nasal Cannula Nasal Cannula Nasal Cannula O2 Flow Rate 2.0 2.0 2.0 2.0 11/10/17 11/10/17 11/10/17 11/10/17 20:00 20:00 20:09 21:00 Pulse 76 86 Resp 11 18 11 B/P (MAP) 96/49 (65) 94/53 (67) Pulse Ox 99 97 99 O2 Delivery Nasal Cannula Nasal Cannula Nasal Cannula Nasal Cannula O2 Flow Rate 2.0 2.0 2.0 2.0 11/10/17 11/10/17 11/10/17 11/10/17 22:00 22:06 23:00 23:40 Temp 98.1 98.1 Pulse 82 88 Resp 02 14 18 18 B/P (MAP) 102/52 (69) 103/53 (70) Pulse Ox 99 97 99 99 O2 Delivery Nasal Cannula Nasal Cannula Nasal Cannula Nasal Cannula O2 Flow Rate 2.0 2.0 2.0 2.0 11/11/17 11/11/17 11/11/17 11/11/17 00:00 00:00 00:10 00:11 Pulse 88 Resp 16 16 16 B/P (MAP) 99/56 (70) Pulse Ox 98 97 97 O2 Delivery Nasal Cannula Nasal Cannula Nasal Cannula Nasal Cannula O2 Flow Rate 2.0 2.0 2.0 2.0 11/11/17 11/11/17 11/11/17 11/11/17 00:37 01:00 02:00 03:00 Pulse 88 89 90 Resp 16 17 13 13 B/P (MAP) 96/58 (71) 97/52 (67) 91/53 (66) Pulse Ox 96 98 98 98 O2 Delivery Nasal Cannula Nasal Cannula Nasal Cannula Nasal Cannula O2 Flow Rate 2.0 2.0 2.0 2.0 11/11/17 11/11/17 11/11/17 11/11/17 03:56 04:00 04:00 05:00 Temp 98.4 98.4 Pulse 106 96 Resp 15 13 B/P (MAP) 144/72 (96) 95/47 (63) Pulse Ox 98 99 92 O2 Delivery Nasal Cannula Nasal Cannula Nasal Cannula Nasal Cannula O2 Flow Rate 2.0 2.0 2.0 2.0 11/11/17 11/11/17 11/11/17 11/11/17 06:00 07:00 07:15 08:00 Pulse 104 98 104 Resp 16 16 14 B/P (MAP) 114/54 (74) 108/56 (73) 123/67 (85) Pulse Ox 95 98 98 O2 Delivery Nasal Cannula Nasal Cannula Nasal Cannula Nasal Cannula O2 Flow Rate 2.0 2.0 2.0 2.0 11/11/17 11/11/17 11/11/17 11/11/17 08:00 08:15 09:00 10:00 Temp 98.7 98.7 Pulse 97 99 102 Resp 15 16 15 22 B/P (MAP) 101/63 (76) 108/69 (82) 94/56 (69) Pulse Ox 97 98 99 95 O2 Delivery Nasal Cannula Nasal Cannula Nasal Cannula Nasal Cannula O2 Flow Rate 2.0 2.0 2.0 2.0 11/11/17 11/11/17 11/11/17 11/11/17 10:23 10:45 11:18 12:00 Temp 98.0 98.0 Pulse 96 94 Resp 16 18 15 16 B/P (MAP) 105/57 (73) 111/66 (81) Pulse Ox 96 98 98 97 O2 Delivery Nasal Cannula Nasal Cannula Nasal Cannula Nasal Cannula O2 Flow Rate 2.0 2.0 2.0 2.0 11/11/17 11/11/17 12:00 13:00 Pulse 98 Resp 11 B/P (MAP) 106/60 (75) Pulse Ox 98 O2 Delivery Nasal Cannula Nasal Cannula O2 Flow Rate 2.0 2.0 Intake and Output 11/10/17 11/10/17 11/11/17 15:00 23:00 07:00 Intake Total 750 ml 431 ml 513 ml Output Total 780 ml 815 ml 295 ml Balance -30 ml -384 ml 218 ml BROOKE BETHEA MD Nov 11, 2017 14:12
[2017-11-11] MEDS: METOPROLOL TART IMMED RELEASE 25 MG TABLET. PO SCH ×2 (16:42→21:00)
[2017-11-12] VITALS (15 sets, daily range): BP systolic 86–116; BP diastolic 43–71
[2017-11-12] MEDS: KETOROLAC 15 MG/ML VIAL. IV PRN (04:07)
[2017-11-12] MEDS: LEVOTHYROXINE 100 MCG TABLET PO SCH (06:03)
[2017-11-12] MEDS: oxyCODONE/APAP 5/325 1 TAB TABLET PO PRN ×5 (06:04→23:42)
[2017-11-12] MEDS: INSULIN LISPRO 300 UNITS/3 ML INSULN.PEN. SQ SCH ×3 (08:00→17:00)
--- NOTE | 2017-11-12 08:52 | RAD ---
EXAM:PORTABLE CHEST 1V DATE: 11/12/2017 6:29 AM CLINICAL INDICATION: 3 DAY POST OP CABG COMPARISON: 11/11/2017, 11/10/2018 FINDINGS: Changes of cardiothoracic surgery with median sternotomy are seen. Left chest tube is in stable position. The heart is mildly enlarged. Mediastinal and hilar contours are stable with prominence of the superior mediastinum.. Small left pleural effusion. Associated left lung base parenchymal opacities are seen likely atelectasis. No pneumothorax. IMPRESSION: 1. Left chest tube is in stable position. No pneumothorax. 2. Cardiomediastinal silhouette is stable. Electronically signed by: Prudencio Golden MD (11/12/2017 8:48 AM) [facility]
[2017-11-12] MEDS: METOPROLOL TART IMMED RELEASE 25 MG TABLET. PO SCH ×2 (09:00→15:35)
[2017-11-12] MEDS: ASPIRIN ENTERIC COATED 325 MG TABLET.DR. PO SCH (09:04)
[2017-11-12] MEDS: SENNOSIDES/DOCUSATE 8.6/50MG TABLET. PO SCH ×2 (09:04→20:25)
[2017-11-12] MEDS: CETIRIZINE HCL 10 MG TABLET. PO SCH (09:05)
[2017-11-12] MEDS: PANTOPRAZOLE 40 MG TABLET.DR. PO SCH (09:05)
[2017-11-12] MEDS: POLYETHYLENE GLYCOL 3350 17 GM PACKET. PO SCH (09:05)
[2017-11-12] MEDS ORDERED: ALBUMIN HUMAN 5% 250 ML IV ONE (12:30)
--- NOTE | 2017-11-12 13:02 | PDOC ---
Progress Note Subjective Subjective Doing well. SR, tachycardic at times, SBP in the 90s, b-jerilyn not given. Minimal pleural tube output. Labs, CXR OK ROS ROS No nausea No vomiting No pain No rash Vital Sign Vital Signs Vital Signs Date Time Temp Pulse Resp B/P (MAP) Pulse Ox O2 Delivery O2 Flow Rate FiO2 11/12/17 11:10 16 92 Room Air 11/12/17 11:00 104 88/51 (63) 11/12/17 07:10 2.0 11/12/17 07:00 99.0 99.0 Physical Exam PHYSICAL EXAM GENERAL: NAD, Alert HEENT: PERRL, OC/OP NECK: Supple, no JVD, no LN LUNGS: Clear HEART: S1S2, no gallop, no murmur ABD: Soft, NT, no organomegaly, no rebound EXT: No edema, no cyanosis [employer] COMMUNICATIONS: Alert, oriented x 3, no focal neurologic deficit SKIN: No rash IV: ok Labs Lab Laboratory Tests Test 11/11/17 16:49 11/12/17 08:47 11/12/17 12:38 Glucose (Fingerstick) 144 mg/dL (70-99) 124 mg/dL (70-99) 128 mg/dL (70-99) Objective Assessment POD#3, s/p CABG x 2 (CLARK to LAD, SVG to RPDA) Doing well. SR, tachycardic at times, SBP in the 90s, b-jerilyn not given. Minimal pleural tube output. Labs, CXR OK Plan Plan of Care D/c pleural tube D/c pacing wires ASA, statin Ambulation and pulm toilet Transfer to stepdown Should attempt to give 12,5mg metoprolol GLORY TAVARES MD Nov 12, 2017 13:01
--- NOTE | 2017-11-12 16:08 | PDOC ---
PROGRESS NOTES Subjective Subjective Patient seen and examined The patient looks and feels better today. Objective Objective Vital Signs Date Time Temp Pulse Resp B/P (MAP) Pulse Ox O2 Delivery O2 Flow Rate FiO2 11/12/17 15:35 103 128/60 11/12/17 15:35 16 93 Room Air 11/12/17 15:00 99.2 99.2 11/12/17 07:10 2.0 Intake and Output 11/12/17 07:00 Intake Total 2218.1 ml Output Total 2275 ml Balance -56.9 ml Intake Oral 1750 ml IV Total 468.1 ml Output Urine Total 1965 ml Chest Tube Drainage Total 310 ml Physical Exam Abdomen: Normal bowel sounds Heart: Regular rate General: mild distress Lungs: Clear to auscultation Assessment Assessment 1. Multivessel coronary disease including an LAD lesion. As post bypass surgery. Postop day 3. Continues to do well. Increasing activity. Postop management as per CV surgery. 2. Diabetes mellitus. Sliding scale insulin. 3. Hyperlipidemia. Statins. 4. Hypertension. Controlled. 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 Comment Review of Relevant I have reviewed the following items asad (where applicable) has been applied. Labs Laboratory Tests Test 11/11/17 07:59 11/11/17 09:39 11/11/17 16:49 11/12/17 08:47 Glucose (Fingerstick) 142 mg/dL (70-99) 144 mg/dL (70-99) 124 mg/dL (70-99) Sodium Level 135 mmol/L (136-145) Potassium Level 4.0 mmol/L (3.5-5.1) Chloride Level 100 mmol/L (98-107) Carbon Dioxide Level 29 mmol/L (21-32) Anion Gap 6 (6-14) Blood Urea Nitrogen 11 mg/dL (7-20) Creatinine 0.7 mg/dL (0.6-1.0) Estimated GFR (Cockcroft-Gault) 84.2 Glucose Level 160 mg/dL (70-99) Calcium Level 8.0 mg/dL (8.5-10.1) Magnesium Level 1.7 mg/dL (1.8-2.4) Test 11/12/17 12:38 Glucose (Fingerstick) 128 mg/dL (70-99) Laboratory Tests Test 11/11/17 16:49 11/12/17 08:47 11/12/17 12:38 Glucose (Fingerstick) 144 mg/dL (70-99) 124 mg/dL (70-99) 128 mg/dL (70-99) Medications Current Medications Iodixanol (Visipaque 320) 100 ml STK-MED ONCE .ROUTE ; Start 11/07/17 at 07:10; Stop 11/07/17 at 07:11; Status DC Lidocaine HCl (Lidocaine 1% Pf) 30 ml STK-MED ONCE .ROUTE ; Start 11/07/17 at 07: 10; Stop 11/07/17 at 07:11; Status DC Heparin Sodium/ Sodium Chloride 1,500 ml @ As Directed STK-MED ONCE .ROUTE ; Start 11/07/17 at 07:10; Stop 11/07/17 at 07:11; Status DC Fentanyl Citrate (Fentanyl 2ml Vial) 100 mcg STK-MED ONCE .ROUTE ; Start at 07:19; Stop 11/07/17 at 07:20; Status DC Midazolam HCl (Versed) 5 mg STK-MED ONCE .ROUTE ; Start 11/07/17 at 07:19; Stop 11/07/17 at 07:20; Status DC Heparin Sodium (Porcine) (Heparin Sodium) 10,000 unit STK-MED ONCE .ROUTE ; Start 11/07/17 at 07:31; Stop 11/07/17 at 07:33; Status DC Verapamil HCl (Verapamil) 5 mg STK-MED ONCE .ROUTE ; Start 11/07/17 at 07:31; Stop 11/07/17 at 07:33; Status DC Nitroglycerin (Nitroglycerin) 200 mcg STK-MED ONCE .ROUTE ; Start 11/07/17 at 07: 31; Stop 11/07/17 at 07:33; Status DC Heparin Sodium/ Sodium Chloride (HEPARIN for ARTERIAL LINE FLUSH) 1,000 unit 1X ONCE IART Last administered on 11/07/17at 09:06; Start 11/07/17 at 08:30; Stop 11/07/17 at 08:31; Status DC Heparin Sodium/ Sodium Chloride (HEPARIN for ARTERIAL LINE FLUSH) 1,000 unit 1X ONCE IART Last administered on 11/07/17at 09:06; Start 11/07/17 at 08:30; Stop 11/07/17 at 08:31; Status DC Midazolam HCl (Versed) 5 mg 1X ONCE IV Last administered on 11/07/17at 09:06; Start 11/07/17 at 08:30; Stop 11/07/17 at 08:31; Status DC Fentanyl Citrate (Fentanyl 2ml Vial) 100 mcg 1X ONCE IV Last administered on at 09:07; Start 11/07/17 at 08:30; Stop 11/07/17 at 08:31; Status DC Iodixanol (Visipaque 320) 100 ml 1X ONCE IART Last administered on 11/07/17at 09 :07; Start 11/07/17 at 08:30; Stop 11/07/17 at 08:31; Status DC Lidocaine HCl 20 ml 1X ONCE IJ ; Start 11/07/17 at 08:30; Stop 11/07/17 at 09:08 ; Status DC Info (CONTRAST GIVEN -- Rx MONITORING) 1 each PRN DAILY PRN MC SEE COMMENTS; Start 11/07/17 at 08:30; Stop 11/09/17 at 08:29; Status DC Lidocaine HCl (Lidocaine 1% Pf) 20 ml 1X ONCE INJ Last administered on at 09:15; Start 11/07/17 at 09:15; Stop 11/07/17 at 09:16; Status DC Sodium Chloride (Normal Saline Flush) 3 ml QSHIFT PRN IV AFTER MEDS AND BLOOD DRAWS; Start 11/07/17 at 10:00; Stop 11/09/17 at 12:19; Status DC Sodium Chloride 1,000 ml @ 60 mls/hr [id number] IV Last administered on 11/08/17at 02:32; Start 11/07/17 at 09:52; Stop 11/08/17 at 18:54; Status DC Aspirin (Ecotrin) 81 mg DAILYWBKFT PO Last administered on 11/08/17at 09:35; Start 11/07/17 at 10:15; Stop 11/09/17 at 12:17; Status DC Metoprolol Tartrate (Lopressor) 12.5 mg BID PO Last administered on 11/08/17at 20 :51; Start 11/07/17 at 10:15; Stop 11/08/17 at 22:00; Status DC Lisinopril (Prinivil) 5 mg DAILY PO Last administered on 11/07/17at 10:32; Start 11/07/17 at 10:15; Stop 11/07/17 at 14:40; Status DC Atorvastatin Calcium (Lipitor) 80 mg QHS PO Last administered on 11/08/17at 20:51 ; Start 11/07/17 at 21:00; Stop 11/09/17 at 12:19; Status DC Acetaminophen (Tylenol) 650 mg PRN Q6HRS PRN PO MILD PAIN Last administered on 11/08/17at 06:25; Start 11/07/17 at 10:00; Stop 11/09/17 at 12:19; Status DC Nitroglycerin (Nitrostat) 0.4 mg PRN Q5MIN PRN SL CHEST PAIN; Start 11/07/17 at 10:00; Stop 11/09/17 at 12:17; Status DC Levothyroxine Sodium (Synthroid) 100 mcg DAILY06 PO Last administered on at 06:03; Start 11/07/17 at 10:30 Cetirizine HCl (ZyrTEC) 10 mg DAILY PO Last administered on 11/12/17at 09:05; Start 11/07/17 at 15:00 Pantoprazole Sodium (Protonix) 40 mg DAILYAC PO Last administered on 11/12/17at 09:05; Start 11/07/17 at 15:00 Zolpidem Tartrate (Ambien) 5 mg PRN QHS PRN PO INSOMNIA, MAY REPEAT IN 1HR Last administered on 11/08/17at 22:30; Start 11/07/17 at 15:45; Stop 11/09/17 at 12 :17; Status DC Cefazolin Sodium/ Dextrose 50 ml @ 100 mls/hr 1X ONCE IV Last administered on 11/09/17at 08:23; Start 11/09/17 at 06:00; Stop 11/09/17 at 12:19; Status DC Insulin Human Lispro (HumaLOG) 0-5 UNITS TIDWMEALS SQ ; Start 11/07/17 at 17:00; Stop 11/09/17 at 12:18; Status DC Dextrose (Dextrose 50%-Water Syringe) 12.5 gm PRN Q15MIN PRN IV SEE COMMENTS; Start 11/07/17 at 16:00; Stop 11/09/17 at 12:18; Status DC Heparin Sodium/ Dextrose 500 ml @ 0 mls/hr CONT PRN IV SEE I/O RECORD Last administered on 11/08/17at 17:53; Start 11/07/17 at 16:45; Stop 11/08/17 at 23:55; Status DC Heparin Sodium (Porcine) (Heparin Sodium) 2,300 unit PRN Q6HRS PRN IV FOR UFH LEVEL LESS THAN 0.2; Start 11/07/17 at 16:45; Stop 11/08/17 at 23:55; Status DC Potassium Chloride 70 meq/ Sodium Bicarbonate 12.5 meq/Lidocaine HCl 24 ml/ Parenteral Electrolytes 571.5 ml @ 571.5 mls/ hr 1X ONCE IRR Last administered on 11/09/17at 10:31; Start 11/09/17 at 06:00; Stop 11/09/17 at 06:59 ; Status DC Potassium Chloride 15 meq/ Sodium Bicarbonate 12.5 meq/Parenteral Electrolytes 520 ml @ 520 mls/hr 1X ONCE IRR Last administered on 11/09/17at 10:31; Start 11/09/17 at 06:00; Stop 11/09/17 at 06:59; Status DC Heparin Sodium (Porcine) 12300 unit/Sodium Chloride 1,020 ml @ 1,020 mls/hr 1X ONCE IRR Last administered on 11/09/17at 09:04; Start 11/09/17 at 06:00; Stop 11/09/17 at 06:59; Status DC Cefazolin Sodium 1 gm/Sodium Chloride 500 ml @ 500 mls/hr 1X ONCE IRR Last administered on 11/09/17at 09:04; Start 11/09/17 at 06:00; Stop 11/09/17 at 06:59 ; Status DC Vancomycin HCl (VANCO for OR ONLY) 10 gm 1X ONCE CEMENT ; Start 11/09/17 at 06: 00; Stop 11/09/17 at 06:01; Status DC Tranexamic Acid 1000 mg/Sodium Chloride 60 ml @ 60 mls/hr 1X PERIOP ONCE INJ ; Start 11/09/17 at 06:00; Stop 11/09/17 at 06:59; Status DC Alprazolam (Xanax) 0.25 mg PRN Q8HRS PRN PO ANXIETY / AGITATION; Start 11/08/17 at 11:30 Prochlorperazine Edisylate (Compazine) 5 mg PACU PRN PRN IV NAUSEA, MRX1; Start 11/09/17 at 07:00; Stop 11/10/17 at 06:59; Status DC Lidocaine HCl (Xylocaine-Mpf 1% Vial) 2 ml PRN 1X PRN ID IV START; Start at 07:00; Stop 11/10/17 at 06:59; Status DC Ringer's Solution 1,000 ml @ 30 mls/hr Q24H IV Last administered on 11/09/17at 06:44; Start 11/09/17 at 07:00; Stop 11/09/17 at 15:08; Status DC Fentanyl Citrate (Fentanyl 2ml Vial) 50 mcg PRN Q5MIN PRN IV MODERATE TO SEVERE PAIN; Start 11/09/17 at 07:00; Stop 11/10/17 at 06:59; Status DC Fentanyl Citrate (Fentanyl 2ml Vial) 25 mcg PRN Q5MIN PRN IV MILD PAIN; Start 11/09/17 at 07:00; Stop 11/10/17 at 06:59; Status DC Ondansetron HCl (Zofran) 4 mg PRN Q6HRS PRN IV NAUSEA/VOMITING; Start 11/09/17 at 07:00; Stop 11/09/17 at 12:50; Status DC Insulin Human Regular 150 unit/ Sodium Chloride 151.5 ml @ 0 mls/hr CONT PRN IV SEE I/O RECORD; Start 11/09/17 at 07:00; Stop 11/09/17 at 15:08; Status DC Heparin Sodium (Porcine) 30,000 unit STK-MED ONCE .ROUTE ; Start 11/09/17 at 06: 43; Stop 11/09/17 at 06:44; Status DC Rocuronium [place] (Zemuron) 100 mg STK-MED ONCE .ROUTE ; Start 11/09/17 at 06: 46; Stop 11/09/17 at 06:47; Status DC Fentanyl Citrate (Fentanyl 2ml Vial) 100 mcg STK-MED ONCE .ROUTE ; Start at 06:46; Stop 11/09/17 at 06:47; Status DC Midazolam HCl (Versed) 2 mg STK-MED ONCE .ROUTE ; Start 11/09/17 at 06:46; Stop 11/09/17 at 06:48; Status DC Aminocaproic Acid (Amicar) 5,000 mg STK-MED ONCE IV ; Start 11/09/17 at 06:52; Stop 11/09/17 at 06:53; Status DC Aminocaproic Acid (Amicar) 5,000 mg STK-MED ONCE IV ; Start 11/09/17 at 06:52; Stop 11/09/17 at 06:53; Status DC Aminocaproic Acid (Amicar) 5,000 mg STK-MED ONCE IV ; Start 11/09/17 at 06:52; Stop 11/09/17 at 06:53; Status DC Etomidate (Amidate) 20 mg STK-MED ONCE IV ; Start 11/09/17 at 06:52; Stop at 06:53; Status DC Heparin Sodium (Porcine) (Heparin Sodium) 10,000 unit STK-MED ONCE .ROUTE ; Start 11/09/17 at 06:52; Stop 11/09/17 at 06:53; Status DC Heparin Sodium (Porcine) 30,000 unit STK-MED ONCE .ROUTE ; Start 11/09/17 at 06: 52; Stop 11/09/17 at 06:53; Status DC Heparin Sodium (Porcine) 30,000 unit STK-MED ONCE .ROUTE ; Start 11/09/17 at 06: 52; Stop 11/09/17 at 06:53; Status DC Nitroglycerin/ Dextrose 0 ml @ As Directed STK-MED ONCE IV ; Start 11/09/17 at 06:52; Stop 11/09/17 at 06:54; Status DC Phenylephrine HCl (Mike-Synephrine Inj) 10 mg STK-MED ONCE .ROUTE ; Start at 06:53; Stop 11/09/17 at 06:54; Status DC Phenylephrine HCl (Mike-Synephrine Inj) 10 mg STK-MED ONCE .ROUTE ; Start at 06:53; Stop 11/09/17 at 06:54; Status DC Phenylephrine HCl (Mike-Synephrine Inj) 10 mg STK-MED ONCE .ROUTE ; Start at 06:53; Stop 11/09/17 at 06:54; Status DC Isoflurane (Isoflurane) 60 ml STK-MED ONCE IH ; Start 11/09/17 at 06:53; Stop at 06:54; Status DC Sufentanil Citrate (Sufenta) 100 mcg STK-MED ONCE .ROUTE ; Start 11/09/17 at 06: 54; Stop 11/09/17 at 06:55; Status DC Ephedrine Sulfate (ePHEDrine PF IN SALINE SYRINGE) 50 mg STK-MED ONCE IV ; Start 11/09/17 at 06:54; Stop 11/09/17 at 06:55; Status DC Vancomycin HCl (VANCO for OR ONLY) 10 gm STK-MED ONCE .ROUTE Last administered on 11/09/17at 09:04; Start 11/09/17 at 06:07; Stop 11/09/17 at 07:08; Status DC Cellulose (Surgicel Hemostat 4x8) 1 each STK-MED ONCE .ROUTE Last administered on 11/09/17at 09:04; Start 11/09/17 at 06:07; Stop 11/09/17 at 07:08; Status DC Papaverine HCl 60 mg STK-MED ONCE .ROUTE Last administered on 11/09/17at 09:04; Start 11/09/17 at 06:07; Stop 11/09/17 at 07:08; Status DC Aspirin (Aspirin) 300 mg STK-MED ONCE .ROUTE Last administered on 11/09/17at 13: 03; Start 11/09/17 at 06:07; Stop 11/09/17 at 07:08; Status DC Sodium Chloride (SODIUM CHLORIDE 20ml) 20 ml STK-MED ONCE IJ Last administered on 11/09/17at 09:04; Start 11/09/17 at 06:08; Stop 11/09/17 at 07:09; Status DC Isoflurane (Isoflurane) 90 ml STK-MED ONCE IH ; Start 11/09/17 at 08:56; Stop at 08:57; Status DC Midazolam HCl (Versed) 2 mg STK-MED ONCE .ROUTE ; Start 11/09/17 at 08:57; Stop 11/09/17 at 08:58; Status DC Sufentanil Citrate (Sufenta) 100 mcg STK-MED ONCE .ROUTE ; Start 11/09/17 at 09: 17; Stop 11/09/17 at 09:18; Status DC Nitroglycerin/ Dextrose (Nitroglycerin Drip) 50 mg STK-MED ONCE IV ; Start 11/09 at 09:23; Stop 11/09/17 at 09:24; Status DC Protamine Sulfate (Protamine) 250 mg STK-MED ONCE IV ; Start 11/09/17 at 09:27; Stop 11/09/17 at 09:28; Status DC Rocuronium [place] (Zemuron) 100 mg STK-MED ONCE .ROUTE ; Start 11/09/17 at 09: 30; Stop 11/09/17 at 09:31; Status DC Protamine Sulfate (Protamine) 50 mg STK-MED ONCE IV ; Start 11/09/17 at 10:02; Stop 11/09/17 at 10:03; Status DC Protamine Sulfate (Protamine) 50 mg STK-MED ONCE IV ; Start 11/09/17 at 11:51; Stop 11/09/17 at 11:52; Status DC Lidocaine HCl (Lidocaine Pf 2% Vial) 5 ml STK-MED ONCE .ROUTE ; Start 11/09/17 at 12:10; Stop 11/09/17 at 12:11; Status DC Magnesium Sulfate 5 gm STK-MED ONCE .ROUTE ; Start 11/09/17 at 12:10; Stop 11/09 at 12:11; Status DC Heparin Sodium (Porcine) 30,000 unit STK-MED ONCE .ROUTE ; Start 11/09/17 at 12: 10; Stop 11/09/17 at 12:11; Status DC Mannitol (Mannitol) 12.5 g STK-MED ONCE .ROUTE ; Start 11/09/17 at 12:10; Stop 11/09/17 at 12:11; Status DC Albumin Human 100 ml @ As Directed STK-MED ONCE IV ; Start 11/09/17 at 12:10; Stop 11/09/17 at 12:11; Status DC Calcium Chloride (Calcium Chloride) 1,000 mg STK-MED ONCE .ROUTE ; Start at 12:10; Stop 11/09/17 at 12:11; Status DC Magnesium Sulfate 5 gm STK-MED ONCE .ROUTE ; Start 11/09/17 at 12:10; Stop 11/09 at 12:11; Status DC Sodium Chloride (Normal Saline Flush) 3 ml PRN Q12HR PRN IV AFTER MEDS AND BLOOD DRAWS; Start 11/09/17 at 12:30 Ringer's Solution 1,000 ml @ 30 mls/hr Q24H IV Last administered on 11/11/17at 12:19; Start 11/09/17 at 12:19; Stop 11/12/17 at 11:31; Status DC Albumin Human 250 ml @ 60 mls/hr PRN Q4HRS PRN IV SEE I/O RECORD Last administered on 11/09/17at 15:26; Start 11/09/17 at 12:30 Insulin Human Regular 150 unit/ Sodium Chloride 151.5 ml @ 0 mls/hr CONT PRN PRN IV SEE I/O RECORD; Start 11/09/17 at 12:30; Stop 11/12/17 at 11:31; Status DC Dextrose (Dextrose 50%-Water Syringe) 25 gm PRN Q15MIN PRN IV LOW BLOOD SUGAR; Start 11/09/17 at 12:30; Stop 11/10/17 at 13:16; Status DC Info (Icu Electrolyte Protocol) 1 ea CONT PRN PRN MC SEE COMMENTS; Start at 12:30; Stop 11/12/17 at 11:31; Status DC Magnesium Sulfate/ Dextrose 100 ml @ 100 mls/hr PRN DAILY PRN IV FOR MAG < 2.2 Last administered on 11/11/17at 12:31; Start 11/09/17 at 12:30 Famotidine (Pepcid Vial) 20 mg BID IVP Last administered on 11/11/17at 07:50; Start 11/09/17 at 21:00; Stop 11/11/17 at 16:00; Status DC Ondansetron HCl (Zofran) 4 mg PRN Q4HRS PRN IV NAUSEA/VOMITING 1ST CHOICE Last administered on 11/11/17at 00:37; Start 11/09/17 at 12:30 Prochlorperazine Edisylate (Compazine) 10 mg PRN Q6HRS PRN IV NAUSEA/VOMITING 2ND CHOICE Last administered on 11/10/17at 12:35; Start 11/09/17 at 12:30 Morphine Sulfate (Morphine Sulfate) 2 mg PRN Q1HR PRN IV PAIN MILD to MODERATE Last administered on 11/11/17at 00:37; Start 11/09/17 at 12:30 Meperidine HCl (Demerol) 12.5 mg PRN Q15MIN PRN IV SHIVERING Last administered on 11/09/17at 14:17; Start 11/09/17 at 12:30; Stop 11/09/17 at 14:17; Status DC Propofol 100 ml @ 0 mls/hr CONT PRN PRN IV POSTOP SEDATION UNTIL EXTUBATE Last administered on 11/09/17at 14:02; Start 11/09/17 at 12:30; Stop 11/12/17 at 11:31 ; Status DC Senna/Docusate Sodium (Senna Plus) 1 tab BID PO Last administered on 11/12/17at 09:04; Start 11/09/17 at 21:00 Bisacodyl (Dulcolax Supp) 10 mg PRN DAILY PRN PA NO BOWEL MOVEMENT; Start 11/09 at 12:30 Chlorhexidine Gluconate (Peridex) 15 ml BID MM ; Start 11/09/17 at 21:00; Stop 11/10/17 at 15:51; Status DC Aspirin (Ecotrin) 325 mg DAILYWBKFT PO Last administered on 11/12/17at 09:04; Start 11/10/17 at 08:00 Albuterol Sulfate (Ventolin Neb Soln) 2.5 mg PRN Q4HRS PRN NEB SHORTNESS OF BREATH; Start 11/09/17 at 12:30 Metoprolol Tartrate (Lopressor) 25 mg BID PO Last administered on 11/10/17at 09: 23; Start 11/10/17 at 09:00; Stop 11/10/17 at 13:52; Status DC Nicardipine HCl 50 mg/Sodium Chloride 270 ml @ 0 mls/hr CONT PRN PRN IV PER PROTOCOL; Start 11/09/17 at 12:30; Stop 11/12/17 at 11:31; Status DC Oxycodone/ Acetaminophen (Percocet 5/325) 1 tab PRN Q4HRS PRN PO MILD PAIN Last administered on 11/12/17at 15:35; Start 11/09/17 at 12:30 Oxycodone/ Acetaminophen (Percocet 5/325) 2 tab PRN Q4HRS PRN PO MODERATE PAIN , SEVERE PAIN Last administered on 11/12/17at 10:06; Start 11/09/17 at 12:30 Cefazolin Sodium/ Dextrose 50 ml @ 100 mls/hr Q8H IV ; Start 11/09/17 at 14:30 ; Stop 11/09/17 at 14:30; Status DC Polyethylene Glycol (miraLAX PACKET) 17 gm DAILY PO Last administered on at 09:05; Start 11/10/17 at 09:00 Amiodarone HCl 150 mg/Dextrose 103 ml @ 618 mls/hr 1X ONCE IV Last administered on 11/09/17at 14:41; Start 11/09/17 at 13:15; Stop 11/09/17 at 13:29 ; Status DC Amiodarone HCl 900 mg/Dextrose 518 ml @ 0 mls/hr CONT PRN IV SEE I/O RECORD Last administered on 11/09/17at 14:55; Start 11/09/17 at 13:30; Stop 11/09/17 at 14:55; Status DC Cefazolin Sodium/ Dextrose 50 ml @ 100 mls/hr Q8H IV Last administered on 11/11at 06:32; Start 11/09/17 at 20:00; Stop 11/11/17 at 04:29; Status DC Sodium Bicarbonate (Sodium Bicarb Adult 8.4% Syr) 100 meq 1X ONCE IV Last administered on 11/09/17at 14:06; Start 11/09/17 at 14:00; Stop 11/09/17 at 14:01 ; Status DC Potassium Chloride/Water 50 ml @ 50 mls/hr Q1H IV Last administered on at 19:57; Start 11/09/17 at 18:00; Stop 11/09/17 at 19:59; Status DC Albumin Human 500 ml @ 125 mls/hr 1X ONCE IV Last administered on 11/10/17at 00:39; Start 11/10/17 at 00:30; Stop 11/10/17 at 04:29; Status DC Potassium Chloride/Water 50 ml @ 50 mls/hr 1X ONCE IV Last administered on 02/17at 09:22; Start 11/10/17 at 08:00; Stop 11/10/17 at 08:59; Status DC Magnesium Sulfate 50 ml @ 25 mls/hr 1X ONCE IV Last administered on 11/10/17at 12:26; Start 11/10/17 at 08:00; Stop 11/10/17 at 09:59; Status DC Amiodarone HCl (Cordarone) 200 mg BID PO ; Start 11/10/17 at 12:00; Stop at 13:52; Status DC Furosemide (Lasix) 20 mg 1X ONCE IVP Last administered on 11/10/17at 12:26; Start 11/10/17 at 11:45; Stop 11/10/17 at 11:46; Status DC Insulin Human Lispro (HumaLOG) 0-7 UNITS TIDWMEALS SQ Last administered on 11/10at 15:59; Start 11/10/17 at 13:30 Dextrose (Dextrose 50%-Water Syringe) 12.5 gm PRN Q15MIN PRN IV SEE COMMENTS; Start 11/10/17 at 13:15 Dopamine HCl/ Dextrose 250 ml @ 7.28 mls/hr CONT PRN IV SEE I/O RECORD Last administered on 11/10/17at 13:49; Start 11/10/17 at 13:45; Stop 11/10/17 at 14:17 ; Status DC Furosemide (Lasix) 20 mg DAILY IVP Last administered on 11/11/17at 07:50; Start 11/10/17 at 14:00; Stop 11/12/17 at 10:21; Status DC Dopamine HCl/ Dextrose 250 ml @ 7.28 mls/hr CONT PRN IV SEE I/O RECORD; Start 11/10/17 at 14:30; Stop 11/12/17 at 11:31; Status DC Isoproterenol HCl 1 mg/Dextrose 255 ml @ 30.6 mls/hr CONT PRN IV SEE I/O RECORD; Start 11/10/17 at 18:30; Stop 11/12/17 at 11:31; Status DC Magnesium Sulfate 50 ml @ 25 mls/hr 1X ONCE IV Last administered on 11/11/17at 11:18; Start 11/11/17 at 11:00; Stop 11/11/17 at 12:59; Status DC Potassium Chloride/Water 100 ml @ 100 mls/hr Q1H IV Last administered on at 12:00; Start 11/11/17 at 11:00; Stop 11/11/17 at 12:59; Status DC Ketorolac Tromethamine (Toradol) 15 mg PRN Q6HRS PRN IV PAIN MILD 1st Choice Last administered on 11/12/17at 04:07; Start 11/11/17 at 12:00; Stop 11/16/17 at 11:59 Metoprolol Tartrate (Lopressor) 12.5 mg BID PO Last administered on 11/12/17at 15:35; Start 11/11/17 at 13:00 Albumin Human 250 ml @ 0 mls/hr 1X ONCE IV Last administered on 11/12/17at 12: 41; Start 11/12/17 at 12:30; Stop 11/12/17 at 12:31; Status DC Active Scripts Active Reported Loratadine 10 Mg Tablet 1 Tab PO DAILY Loratadine 10 Mg Tab.rapdis 10 Mg PO Vitamin D-3 (Cholecalciferol (Vitamin D3)) 2,000 Unit Capsule 2,000 Unit PO Aspirin 81 Mg Tab.chew 1 Tab PO DAILY Omeprazole 20 Mg Capsule.dr 1 Cap PO DAILY Metformin Hcl Er (Metformin Hcl) 1,000 Mg Tab.er.24 1,000 Mg PO [id number] Atorvastatin Calcium 80 Mg Tablet 80 Mg PO DAILY Levothyroxine Sodium 100 Mcg Tablet 100 Mcg PO DAILYAC Vitals/I & O Vital Sign - Last 24 Hours 11/11/17 11/11/17 11/11/17 11/11/17 16:41 16:42 17:00 18:00 Pulse 100 97 102 Resp 16 18 21 B/P (MAP) 104/57 92/48 (63) 96/58 (71) Pulse Ox 98 98 96 O2 Delivery Nasal Cannula Nasal Cannula Nasal Cannula O2 Flow Rate 2.0 2.0 2.0 11/11/17 11/11/17 11/11/17 11/11/17 19:00 20:00 20:00 21:00 Temp 98.7 98.7 Pulse 90 90 90 Resp 18 10 B/P (MAP) 97/68 (78) 96/57 (70) 92/64 Pulse Ox 95 96 O2 Delivery Nasal Cannula Nasal Cannula Nasal Cannula O2 Flow Rate 2.0 2.0 2.0 11/11/17 11/11/17 11/11/17 11/11/17 21:00 21:25 22:00 22:27 Pulse 92 82 Resp 14 18 16 B/P (MAP) 92/64 (73) 91/61 (71) Pulse Ox 96 98 97 O2 Delivery Nasal Cannula Nasal Cannula Nasal Cannula O2 Flow Rate 2.0 2.0 2.0 2.0 11/11/17 11/12/17 11/12/17 11/12/17 23:00 00:00 00:00 01:00 Temp 98.2 98.2 Pulse 87 81 95 Resp 15 20 14 B/P (MAP) 94/54 (67) 88/48 (61) 94/50 (65) Pulse Ox 97 98 97 O2 Delivery Nasal Cannula Nasal Cannula Nasal Cannula Nasal Cannula O2 Flow Rate 2.0 2.0 2.0 2.0 11/12/17 11/12/17 11/12/17 11/12/17 02:00 03:00 04:00 04:00 Temp 98.4 98.4 Pulse 86 102 96 Resp 12 15 17 B/P (MAP) 96/62 (73) 98/67 (77) 107/55 (72) Pulse Ox 97 98 98 O2 Delivery Nasal Cannula Nasal Cannula Nasal Cannula Nasal Cannula O2 Flow Rate 2.0 2.0 2.0 2.0 11/12/17 11/12/17 11/12/17 11/12/17 05:00 06:00 06:04 07:00 Temp 99.0 99.0 Pulse 87 93 87 Resp 16 20 18 B/P (MAP) 90/43 (59) 86/48 (61) 92/49 (63) Pulse Ox 97 96 98 99 O2 Delivery Nasal Cannula Nasal Cannula Nasal Cannula Nasal Cannula O2 Flow Rate 2.0 2.0 2.0 2.0 11/12/17 11/12/17 11/12/17 11/12/17 07:10 08:00 08:00 09:00 Pulse 87 89 Resp 16 B/P (MAP) 88/46 (60) 94/54 Pulse Ox 98 99 O2 Delivery Nasal Cannula Room Air O2 Flow Rate 2.0 11/12/17 11/12/17 11/12/17 11/12/17 09:00 10:00 10:06 11:00 Pulse 89 88 104 Resp 16 16 B/P (MAP) 94/54 (67) 101/56 (71) 88/51 (63) Pulse Ox 93 93 93 92 O2 Delivery Room Air Room Air Room Air Room Air 11/12/17 11/12/17 11/12/17 11/12/17 11:10 15:00 15:35 15:35 Temp 99.2 99.2 Pulse 95 103 Resp 16 15 16 B/P (MAP) 102/57 (72) 128/60 Pulse Ox 92 96 93 O2 Delivery Room Air Room Air Room Air Intake and Output 11/11/17 11/11/17 11/12/17 15:00 23:00 07:00 Intake Total 700 ml 650 ml 868.1 ml Output Total 840 ml 505 ml 930 ml Balance -140 ml 145 ml -61.9 ml BROOKE BETHEA MD Nov 12, 2017 16:07
[2017-11-12] MEDS: PROCHLORPERAZINE 10 MG/2 ML VIAL. IV PRN (20:42)
[2017-11-13] VITALS (7 sets, daily range): BP systolic 101–169; BP diastolic 51–77
[2017-11-13] MEDS: oxyCODONE/APAP 5/325 1 TAB TABLET PO PRN ×3 (05:31→20:31)
[2017-11-13] MEDS: LEVOTHYROXINE 100 MCG TABLET PO SCH (05:31)
[2017-11-13] MEDS: INSULIN LISPRO 300 UNITS/3 ML INSULN.PEN. SQ SCH ×3 (08:00→17:00)
[2017-11-13] MEDS: POLYETHYLENE GLYCOL 3350 17 GM PACKET. PO SCH (09:00)
[2017-11-13] MEDS: ASPIRIN ENTERIC COATED 325 MG TABLET.DR. PO SCH (09:17)
[2017-11-13] MEDS: CETIRIZINE HCL 10 MG TABLET. PO SCH (09:17)
[2017-11-13] MEDS: PANTOPRAZOLE 40 MG TABLET.DR. PO SCH (09:17)
[2017-11-13] MEDS: SENNOSIDES/DOCUSATE 8.6/50MG TABLET. PO SCH ×2 (09:17→20:33)
[2017-11-13] MEDS: METOPROLOL TART IMMED RELEASE 25 MG TABLET. PO SCH ×2 (09:18→20:31)
--- NOTE | 2017-11-13 12:01 | PDOC ---
CARDIO Progress Notes Date and Time Date of Service 11/13/2017 Time of Evaluation 1154 Subjective Subjective: No Chest Pain, No shortness of breath, No Palpitations, No Dizziness, Other (incisional pain; occasional palps) Vitals Vitals Vital Signs Date Time Temp Pulse Resp B/P (MAP) Pulse Ox O2 Delivery O2 Flow Rate FiO2 11/13/17 09:18 80 137/65 11/13/17 07:45 98.5 20 95 Room Air 98.5 11/12/17 07:10 2.0 Weight Weight [ ] Input and Output Intake and Output Intake and Output 11/13/17 07:00 Intake Total 1610 ml Output Total 310 ml Balance 1300 ml Intake Oral 910 ml IV Total 700 ml Output Urine Total 310 ml # Voids 3 Laboratory Labs Laboratory Tests Test 11/12/17 12:38 11/12/17 16:49 11/12/17 20:44 11/13/17 07:58 Glucose (Fingerstick) 128 mg/dL (70-99) 125 mg/dL (70-99) 151 mg/dL (70-99) 127 mg/dL (70-99) Physical Exam HEENT: Neck Supple W Full Motion Chest: Symmetric, Non Tender LUNGS: Other (posterior basilar crackles) Heart: S1S2, RRR, other (tele: SR with PAF) Abdomen: Soft N/T Extremities: Other (trace edema) Neurology: alert, oriented, follow commands Assessment Assessment 1. Multivessel coronary disease including an LAD lesion --LVEF 40% by TTE --CABG X 2 (CLARK to LAD, SVG to RPDA); POD #4 --treated with ASA, BB and statin therapy --per CTS 2. Diabetes mellitus --controlled with insulin 3. Hyperlipidemia --LDLs controlled --continue statin therapy 4. Hypertension --controlled with oral meds 5. Surgical hypothyroidism --continue replacement therapy 7. solitary pulmonary nodule --4.[address] scan --repeat CT scan in 6 months advised 8. anemia, post-operative, expectant 9. PAF --short burst --has palps --check K and Mg --? amiodarone ALAN MEYERS APRN Nov 13, 2017 12:01
[2017-11-13 12:03] LABS: CALCIUM 8.5 mg/dL (8.5-10.1); CREATININE 0.7 mg/dL (0.6-1.0); GFR 84.2; POTASSIUM 3.8 mmol/L (3.5-5.1)
[2017-11-13] MEDS ORDERED: POTASSIUM CHLORIDE 20 MEQ TABLET.ER. PO ONE (12:30)
--- NOTE | 2017-11-13 12:39 | PDOC ---
Progress Note Subjective Subjective Doing well. SR, with short runs of PAF, SBP in the 130-140s, only on 12,5mg metoprolol. ROS ROS No nausea No vomiting No pain No rash Vital Sign Vital Signs Vital Signs Date Time Temp Pulse Resp B/P (MAP) Pulse Ox O2 Delivery O2 Flow Rate FiO2 11/13/17 11:00 98.5 98 22 101/51 (68) 94 Room Air 98.5 11/12/17 07:10 2.0 Physical Exam PHYSICAL EXAM GENERAL: NAD, Alert HEENT: PERRL, OC/OP NECK: Supple, no JVD, no LN LUNGS: Clear HEART: S1S2, no gallop, no murmur ABD: Soft, NT, no organomegaly, no rebound EXT: No edema, no cyanosis ADMINISTRATIVE UNDERWRITER: Alert, oriented x 3, no focal neurologic deficit SKIN: No rash IV: ok Labs Lab Laboratory Tests Test 11/12/17 12:38 11/12/17 16:49 11/12/17 20:44 11/13/17 07:58 Glucose (Fingerstick) 128 mg/dL (70-99) 125 mg/dL (70-99) 151 mg/dL (70-99) 127 mg/dL (70-99) Test 11/13/17 11:30 11/13/17 12:02 Sodium Level 138 mmol/L (136-145) Potassium Level 3.8 mmol/L (3.5-5.1) Chloride Level 101 mmol/L (98-107) Carbon Dioxide Level 28 mmol/L (21-32) Anion Gap 9 (6-14) Blood Urea Nitrogen 12 mg/dL (7-20) Creatinine 0.7 mg/dL (0.6-1.0) Estimated GFR (Cockcroft-Gault) 84.2 Glucose Level 134 mg/dL (70-99) Calcium Level 8.5 mg/dL (8.5-10.1) Magnesium Level 2.0 mg/dL (1.8-2.4) Glucose (Fingerstick) 119 mg/dL (70-99) Objective Assessment POD#4, s/p CABG x 2 (CLARK to LAD, SVG to RPDA) Doing well. SR, with short runs of PAF, SBP in the 130-140s, only on 12,5mg metoprolol. Plan Plan of Care Increase metoprolol to 25mg BID Will re-start amiodarone 200mg BID-will assess response, given previous episode of junctional rhythm ASA, statin Ambulation and pulm toilet Plan d/c home tomorrow GLORY TAVARES MD Nov 13, 2017 12:39
[2017-11-13] MEDS ORDERED: METOPROLOL TART IMMED RELEASE 25 MG TABLET. PO SCH (12:45)
[2017-11-13] MEDS ORDERED: AMIODARONE HCL 200 MG TABLET. PO SCH (13:00)
[2017-11-13] MEDS: AMIODARONE HCL 200 MG TABLET. PO SCH (13:15)
[2017-11-14 03:50] VITALS: BP 133/67
[2017-11-14] MEDS: oxyCODONE/APAP 5/325 1 TAB TABLET PO PRN ×3 (03:58→21:36)
[2017-11-14] MEDS: LEVOTHYROXINE 100 MCG TABLET PO SCH (05:49)
[2017-11-14 07:00] VITALS: BP 138/67
[2017-11-14] MEDS: INSULIN LISPRO 300 UNITS/3 ML INSULN.PEN. SQ SCH ×3 (08:00→17:00)
[2017-11-14] MEDS: PANTOPRAZOLE 40 MG TABLET.DR. PO SCH (08:39)
[2017-11-14] MEDS: ASPIRIN ENTERIC COATED 325 MG TABLET.DR. PO SCH (08:39)
[2017-11-14] MEDS: METOPROLOL TART IMMED RELEASE 25 MG TABLET. PO SCH (08:40)
[2017-11-14] MEDS: AMIODARONE HCL 200 MG TABLET. PO SCH (08:40)
[2017-11-14] MEDS: CETIRIZINE HCL 10 MG TABLET. PO SCH (08:40)
[2017-11-14] MEDS: SENNOSIDES/DOCUSATE 8.6/50MG TABLET. PO SCH ×2 (08:55→21:00)
[2017-11-14] MEDS: POLYETHYLENE GLYCOL 3350 17 GM PACKET. PO SCH (08:55)
--- NOTE | 2017-11-14 10:57 | PDOC ---
CARDIO Progress Notes Date and Time Date of Service 11/14/2017 Time of Evaluation 1055 Subjective Subjective: No Chest Pain, No shortness of breath, No Palpitations, No Dizziness Vitals Vitals Vital Signs Date Time Temp Pulse Resp B/P (MAP) Pulse Ox O2 Delivery O2 Flow Rate FiO2 11/14/17 08:40 79 138/67 11/14/17 08:00 Room Air 11/14/17 07:00 98.1 16 96 98.1 Weight Weight [ ] Input and Output Intake and Output Intake and Output 11/14/17 07:00 Intake Total 1700 ml Balance 1700 ml Intake Oral 1700 ml # Voids 6 # Bowel Movements 1 Laboratory Labs Laboratory Tests Test 11/13/17 11:30 11/13/17 12:02 11/13/17 16:58 11/13/17 20:52 Sodium Level 138 mmol/L (136-145) Potassium Level 3.8 mmol/L (3.5-5.1) Chloride Level 101 mmol/L (98-107) Carbon Dioxide Level 28 mmol/L (21-32) Anion Gap 9 (6-14) Blood Urea Nitrogen 12 mg/dL (7-20) Creatinine 0.7 mg/dL (0.6-1.0) Estimated GFR (Cockcroft-Gault) 84.2 Glucose Level 134 mg/dL (70-99) Calcium Level 8.5 mg/dL (8.5-10.1) Magnesium Level 2.0 mg/dL (1.8-2.4) Glucose (Fingerstick) 119 mg/dL (70-99) 102 mg/dL (70-99) 122 mg/dL (70-99) Test 11/14/17 07:11 Glucose (Fingerstick) 97 mg/dL (70-99) Physical Exam HEENT: Neck Supple W Full Motion Chest: Symmetric, Non Tender LUNGS: Clear to Auscultation Heart: S1S2, RRR, other (tele: SR; no further PAF since about 1730 on 11/13) Abdomen: Soft N/T Extremities: Other (trace edema) Neurology: alert, oriented, follow commands Assessment Assessment 1. Multivessel coronary disease including an LAD lesion --LVEF 40% by TTE --CABG X 2 (CLARK to LAD, SVG to RPDA); POD #4 --treated with ASA, BB and statin therapy --per CTS --? home tomorrow 2. Diabetes mellitus --controlled with insulin 3. Hyperlipidemia --LDLs controlled --continue statin therapy 4. Hypertension --controlled with oral meds 5. Surgical hypothyroidism --continue replacement therapy 7. solitary pulmonary nodule --4.[address] scan --repeat CT scan in 6 months advised 8. anemia, post-operative, expectant 9. PAF --short burst; none since 1729 yesterday --K and Mg OK --amio started by ALAN CASE ENTOMOLOGY TEACHER Nov 14, 2017 10:57
[2017-11-14 11:00] VITALS: BP 146/62
--- NOTE | 2017-11-14 13:57 | PDOC ---
Progress Note Subjective Subjective Doing very well. SR, in the 90s. No further episodes of PAF, SBP in the 130- 140s. ROS ROS No nausea No vomiting No pain No rash Vital Sign Vital Signs Vital Signs Date Time Temp Pulse Resp B/P (MAP) Pulse Ox O2 Delivery O2 Flow Rate FiO2 11/14/17 13:24 18 Room Air 11/14/17 11:00 98.4 79 146/62 (90) 96 98.4 Physical Exam PHYSICAL EXAM GENERAL: NAD, Alert HEENT: PERRL, OC/OP NECK: Supple, no JVD, no LN LUNGS: Clear HEART: S1S2, no gallop, no murmur ABD: Soft, NT, no organomegaly, no rebound EXT: No edema, no cyanosis DISTRIBUTION SALES REPRESENTATIVE: Alert, oriented x 3, no focal neurologic deficit SKIN: No rash IV: ok Labs Lab Laboratory Tests Test 11/13/17 16:58 11/13/17 20:52 11/14/17 07:11 11/14/17 11:58 Glucose (Fingerstick) 102 mg/dL (70-99) 122 mg/dL (70-99) 97 mg/dL (70-99) 91 mg/dL (70-99) Objective Assessment POD#5, s/p CABG x 2 (CLARK to LAD, SVG to RPDA) Doing very well. SR, in the 90s. No further episodes of PAF, SBP in the 130- 140s. Plan Plan of Care Increase metoprolol to 50mg BID Amiodarone 200mg daily ASA, statin D/c home tomorrow GLORY TAVARES MD Nov 14, 2017 13:56
[2017-11-14 15:00] VITALS: BP 112/60
[2017-11-14 19:00] VITALS: BP 121/66
[2017-11-14] MEDS: METOPROLOL TART IMMED RELEASE 50 MG TABLET. PO SCH (21:35)
[2017-11-14 23:00] VITALS: BP 124/65
[2017-11-15 03:39] VITALS: BP 143/75
[2017-11-15] MEDS: LEVOTHYROXINE 100 MCG TABLET PO SCH (06:00)
[2017-11-15] MEDS: oxyCODONE/APAP 5/325 1 TAB TABLET PO PRN ×2 (06:03→12:12)
[2017-11-15 07:00] VITALS: BP 103/66
[2017-11-15] MEDS: INSULIN LISPRO 300 UNITS/3 ML INSULN.PEN. SQ SCH ×2 (08:00→12:00)
[2017-11-15] MEDS: SENNOSIDES/DOCUSATE 8.6/50MG TABLET. PO SCH (09:00)
[2017-11-15] MEDS: POLYETHYLENE GLYCOL 3350 17 GM PACKET. PO SCH (09:15)
[2017-11-15] MEDS: ASPIRIN ENTERIC COATED 325 MG TABLET.DR. PO SCH (09:15)
[2017-11-15] MEDS: CETIRIZINE HCL 10 MG TABLET. PO SCH (09:16)
[2017-11-15] MEDS: PANTOPRAZOLE 40 MG TABLET.DR. PO SCH (09:16)
[2017-11-15] MEDS: METOPROLOL TART IMMED RELEASE 50 MG TABLET. PO SCH (09:16)
[2017-11-15] MEDS: AMIODARONE HCL 200 MG TABLET. PO SCH (09:17)
[2017-11-15] MEDS ORDERED: METO50TA6 PO (10:53)
[2017-11-15] MEDS ORDERED: AMIO200T4 PO (10:53)
[2017-11-15] MEDS ORDERED: ASPI325T11 PO (10:53)
[2017-11-15] MEDS ORDERED: OXYC1TAB7 PO (10:53)
[2017-11-15 11:00] VITALS: BP 105/62
--- NOTE | 2017-11-15 11:41 | PDOC3 ---
*Discharge Summary* Date of Admission: Nov 07, 2017 Date of Discharge: Nov 15, 2017 Admitting Diagnosis 1. abnormal MPI 2. exertional angina 3. DM, II 4. hypertension, essential 5. hyperlipidemia 6. obesity 7. GERD 8. hypothyroidism Final Diagnosis 1. 2 vessel CAD with exertional angina; mildly depressed LV function @ 40%; s/ p CABG 3. DM, II 4. hypertension, essential 5. hyperlipidemia 6. obesity 7. GERD 8. hypothyroidism, on replacement therapy 9. anemia, post-operative, expectant 10. paroxysmal atrial fibrillation CONSULTS Cardiac Surgery: Dr. Ki Solis Procedures 11/07/2017: Cardiac Catheterization by Dr. Ivy Evans: Multivessel coronary artery disease in a diabetic patient including a severe LAD lesion. Subtotal right coronary artery lesion. Intact LV systolic function. 11/07/2017: TTE: The left ventricle is normal size. Left ventricle systolic function is mildly impaired. The Ejection Fraction is estimated at 40%. There is mild global hypokinesis of the left ventricle. There is no significant aortic valvular stenosis. Doppler and Color Flow revealed no significant aortic regurgitation. Doppler and Color-flow revealed trace mitral regurgitation. Doppler and Color Flow revealed trace tricuspid regurgitation. 11/09/2017: by Dr. Ki Solis: CABG x 2 (CLARK to LAD, SVG to RPDA) Left endoscopic greater saphenous vein harvest Brief Hospital Course Ms. Jackson is a 62 old female who presented to the office at the end of September with c/o exertional chest pain. Underwent exercise MPI which demonstrated reversible ischemia in the inferior lateral wall. Cardiac cath was advised and completed on 11/07/2017 which demonstrated a subtotal RCA and severe LAD lesion. Patient was referred to cardiac surgery for CABG evaluation and agreed to proceed. Underwent CABG X 2 on 11/09/2017 with details in operative report. Fast track extubation day of surgery. Episodes of bradycardia on 11/10 and 11/11 with amiodarone stopped. Developed PAF on 11/12/2017 and 11/13/2017 with patient experiencing palpitations. DM treated with sliding scale insulin and converting back to metformin. Daily amiodarone resumed and beta-jerilyn dosage increased. No further PAF. Ambulating independently now. Discharge today with post- operative instructions reviewed. Lungs clear. Wounds healing well; no lower extremity edema. Tele: SR. Disposition/Orders: D/C to Home CONDITION AT DISCHARGE: Stable Diet: 2 gr sodium, Cardiac, Consistent Carbohydrate Home Meds Active Scripts Oxycodone Hcl/Acetaminophen (OXYCODONE-ACETAMINOPHEN 5-325) 1 Each Tablet, 1-2 TAB PO PRN Q4-6HRS PRN for MODERATE PAIN, SEVERE PAIN, #25 TAB 0 Refills Prov:ALAN MEYERS 11/15/17 Aspirin (ASPIRIN EC) 325 Mg Tablet.dr, 325 MG PO DAILYWBKFT, #120 TAB.SR 3 Refills Prov:ALAN MEYERS 11/15/17 Metoprolol Tartrate (METOPROLOL TARTRATE) 50 Mg Tablet, 50 MG PO BID for 30 Days , #60 TAB 2 Refills Prov:ALAN MEYERS 11/15/17 Amiodarone Hcl (AMIODARONE HCL) 200 Mg Tablet, 200 MG PO DAILY for 30 Days, #30 TAB 0 Refills Prov:ALAN MEYERS 11/15/17 Reported Medications Loratadine (LORATADINE) 10 Mg Tablet, 1 TAB PO DAILY, #30 TAB 5 Refills 11/07/17 Cholecalciferol (Vitamin D3) (VITAMIN D-3) 2,000 Unit Capsule, 2000 UNIT PO, CAP 11/07/17 Omeprazole (OMEPRAZOLE) 20 Mg Capsule.dr, 1 CAP PO DAILY, #30 CAP 5 Refills 11/07/17 Metformin Hcl (METFORMIN HCL ER) 1,000 Mg Tab.er.24, 1000 MG PO DAILYWBKFT for ANTI-DIABETIC, TAB 0 Refills 11/07/17 Atorvastatin Calcium (ATORVASTATIN CALCIUM) 80 Mg Tablet, 80 MG PO DAILY for FOR CHOLESTEROL, #30 TAB 0 Refills 11/07/17 Levothyroxine Sodium (LEVOTHYROXINE SODIUM) 100 Mcg Tablet, 100 MCG PO DAILYAC for THYROID SUPPLEMENT, #30 TAB 0 Refills 11/07/17 Discontinued Reported Medications Loratadine (LORATADINE) 10 Mg Tab.rapdis, 10 MG PO, TAB 11/07/17 Aspirin (ASPIRIN) 81 Mg Tab.chew, 1 TAB PO DAILY, #30 TAB 3 Refills 11/07/17 Scheduled Amiodarone Hcl (Amiodarone Hcl), 200 MG PO DAILY Aspirin (Aspirin Ec), 325 MG PO DAILYWBKFT Atorvastatin Calcium (Atorvastatin Calcium), 80 MG PO DAILY, (Reported) Levothyroxine Sodium (Levothyroxine Sodium), 100 MCG PO DAILYAC, (Reported) Loratadine (Loratadine), 1 TAB PO DAILY, (Reported) Metformin Hcl (Metformin Hcl Er), 1,000 MG PO DAILYWBKFT, (Reported) Metoprolol Tartrate (Metoprolol Tartrate), 50 MG PO BID Omeprazole (Omeprazole), 1 CAP PO DAILY, (Reported) Scheduled PRN Oxycodone Hcl/Acetaminophen (Oxycodone-Acetaminophen 5-325), 1-2 TAB PO PRN Q4- 6HRS PRN for MODERATE PAIN, SEVERE PAIN Miscellaneous Medications Cholecalciferol (Vitamin D3) (Vitamin D-3), 2,000 UNIT PO, (Reported) Discontinued Medications Aspirin (Aspirin), 1 TAB PO DAILY, (Reported) Loratadine (Loratadine), 10 MG PO, (Reported) Scripts Oxycodone Hcl/Acetaminophen (OXYCODONE-ACETAMINOPHEN 5-325) 1 Each Tablet 1-2 TAB PO PRN Q4-6HRS PRN for MODERATE PAIN, SEVERE PAIN, #25 TAB 0 Refills Prov: ALAN MEYERS APR11/15/17 Aspirin (ASPIRIN EC) 325 Mg Tablet. 325 MG PO DAILYWBKFT, #120 TAB.SR 3 Refills Prov: ALAN MEYERS 11/15/17 Metoprolol Tartrate (METOPROLOL TARTRATE) 50 Mg Tablet 50 MG PO BID for 30 Days, #60 TAB 2 Refills Prov: ALAN MEYERS 11/15/17 Amiodarone Hcl (AMIODARONE HCL) 200 Mg Tablet 200 MG PO DAILY for 30 Days, #30 TAB 0 Refills Prov: ALAN MEYERS SOIL SCIENCE PROFESSOR 11/15/17 FOLLOW UP APPOINTMENT: Dr. Ki Solis on 11/12/2017 @ 1415 Dr. Davion Evans on 12/13/2017 @ 11:00 PCP follow in one week Time Spent Total time spent with patient > 35 minutes for coordination of care, counseling , and education. ALAN MEYERS APRN Nov 15, 2017 11:41
== END 2017-11-15 14:10 | disposition home or self-care (01) | DRG 234 ==
LOC: CCL 06:34 → 2 NORTH 08:55 → 1 WEST ICU 11-09 08:34 → 2 NORTH 11-12 15:59
PROVIDERS: ADMIT Internal Medicine Cardiovascular Disease; ATTEND Internal Medicine Cardiovascular Disease
PROC: 021009W Bypass Coronary Artery, One Artery from Aorta with Autologous Venous Tissue, Open Approach (ICD-10-PCS; principal; 2017-11-07)
PROC: 4A023N7 Measurement of Cardiac Sampling and Pressure, Left Heart, Percutaneous Approach (ICD-10-PCS; 2017-11-07)
PROC: 02100Z9 Bypass Coronary Artery, One Artery from Left Internal Mammary, Open Approach (ICD-10-PCS; 2017-11-07)
PROC: 06BQ4ZZ Excision of Left Saphenous Vein, Percutaneous Endoscopic Approach (ICD-10-PCS; 2017-11-07)
PROC: B2111ZZ Fluoroscopy of Multiple Coronary Arteries using Low Osmolar Contrast (ICD-10-PCS; 2017-11-07)
PROC: B2151ZZ Fluoroscopy of Left Heart using Low Osmolar Contrast (ICD-10-PCS; 2017-11-07)
PROC: 02100Z9 Bypass Coronary Artery, One Artery from Left Internal Mammary, Open Approach (ICD-10-PCS; 2017-11-09)
PROC: 021009W Bypass Coronary Artery, One Artery from Aorta with Autologous Venous Tissue, Open Approach (ICD-10-PCS; 2017-11-09)
PROC: 06BQ4ZZ Excision of Left Saphenous Vein, Percutaneous Endoscopic Approach (ICD-10-PCS; 2017-11-09)
PROC: 5A1935Z Respiratory Ventilation, Less than 24 Consecutive Hours (ICD-10-PCS; 2017-11-09)
PROC: 0BH17EZ Insertion of Endotracheal Airway into Trachea, Via Natural or Artificial Opening (ICD-10-PCS; 2017-11-09)
DX: I25.110 Atherosclerotic heart disease of native coronary artery with unstable angina pectoris (principal); E66.01 Morbid (severe) obesity due to excess calories; D64.9 Anemia, unspecified; E78.5 Hyperlipidemia, unspecified; E89.0 Postprocedural hypothyroidism; I10 Essential (primary) hypertension; I48.0 Paroxysmal atrial fibrillation; E11.9 Type 2 diabetes mellitus without complications; R91.1 Solitary pulmonary nodule; K21.9 Gastro-esophageal reflux disease without esophagitis; Z68.36 Body mass index [BMI] 36.0-36.9, adult; Z79.4 Long term (current) use of insulin; Z88.5 Allergy status to narcotic agent; Z82.49 Family history of ischemic heart disease and other diseases of the circulatory system
CPT/HCPCS: 36415; 71045; 71250; 80048; 80053; 80061; 81001; 82248; 82803; 82805; 82962; 83735; 84132; 84443; 85014; 85025; 85027; 85347; 85384; 85520; 85610; 85730; 86850; 86900; 86901; 86920; 93005; 93306; 93458; 93880; 93970; 94002; 94760; 99152; 99153; C1769; C1771; C1781; C1892; G0269; J0282; J0690; J0780; J1265; J1644; J1815; J1885; J2001; J2150; J2175; J2250; J2270; J2405; J2440; J2704; J3010; J3370; J3475; J3480; J3490; J7030; J7040; J7120; P9041; P9045; P9046; S0028

== ENCOUNTER → 2018-03-04 | Outpatient (CLI) | payer BC ==
[~2018-03-04] MED LIST: AMIO200T4 PO; ASPI-630 PO; ASPI325T11 PO; ATORVASTATIN CA80 MG PO; CHOL200074 PO; LEVO100T5 PO; LORA10TA3 PO; LORA10TA55 PO; METF100010 PO; METO50TA6 PO; OMEP20CA9 PO; OXYC1TAB7 PO
--- NOTE | 2018-03-04 12:05 | CARD ---
MR#: [id number] Date of Study: 03/04/2018 Ordering Physician: BROOKE BETHEA, Referring Physician: BROOKE BETHEA, Tech: Flor Flores TRINO APPROVED REPORT EXAM: Two-dimensional and M-mode echocardiogram with Doppler and color Doppler. Other Information Quality : Technically LimitedHR: 50bpm Rhythm : BradycardiaTechnically limited study due to body habitus and CABG. INDICATION Cardiomyopathy Surgery/Intervention CABD DIMENSIONS RVDd2.8 (2.9-3.5cm)Left Atrium(2D)4.1 (1.6-4.0cm) IVSd0.8 (0.7-1.1cm)Aortic Root(2D)3.1 (2.0-3.7cm) LVDd5.1 (3.9-5.9cm)LVOT Diameter1.9 (1.8-2.4cm) PWd0.7 (0.7-1.1cm)LVDs3.6 (2.5-4.0cm) FS (%) 29.4 %SV68.4 ml LVEF(%)56.0 (>50%) M-Mode DIMENSIONS Left Atrium(MM)4.16 (2.5-4.0cm)Aortic Root3.02 (2.2-3.7cm) Aortic Valve AoV Peak Fito.124.4cm/sAoV VTI30.4cm AO Peak GR.6.2mmHgLVOT Peak Fito.87.3cm/s AO Mean GR.3mmHgAVA (VMAX)2.04cm2 JOAQUIM (VTI)2.00cm2 Mitral Valve MV E Otzdmssu49.0cm/sMV E Peak Gr.4mmHg MV DECEL [id number] A Winwzgje12.6cm/s MV E Mean Gr.2mmHgE/A Ratio1.2 MV A [id number] Pulmonary Valve PV Peak Chvqkyvs16.0cm/s Pulmonary Vein S1 Newhdjeq45.7cm/sD2 Kubdcfxs34.5cm/s PVa [id number] LEFT VENTRICLE The left ventricle is normal size. There is normal left ventricular wall thickness. The Ejection Frac tion is 55%. Septal motion consistent with prior CABG. Otherwise, normal wall motion. Transmitral Dop pler flow pattern is Grade II-pseudonormal filling dynamics. RIGHT VENTRICLE The right ventricle is normal size. There is normal right ventricular wall thickness. The right ventr icular systolic function is normal. ATRIA The left atrium is mildly dilated. The right atrium is mildly dilated. The interatrial septum is inta ct with no evidence for an atrial septal defect or patent foramen ovale as noted on 2-D or Doppler im aging. AORTIC VALVE The aortic valve is normal in structure and function. The aortic valve is trileaflet. Doppler and Col or Flow revealed trace aortic regurgitation. There is no significant aortic valvular stenosis. MITRAL VALVE Mitral annular calcification is mild. There is no evidence of mitral valve prolapse. There is no mitr al valve stenosis. Doppler and Color-flow revealed mild mitral regurgitation. TRICUSPID VALVE The tricuspid valve is normal in structure and function. Doppler and Color Flow revealed trace tricus pid regurgitation. There is no tricuspid valve prolapse or vegetation. There is no tricuspid valve st enosis. PULMONIC VALVE Pulmonic valve not well visualized. GREAT VESSELS The aortic root is normal in size. The ascending aorta is normal in size. The IVC is normal in size a nd collapses >50% with inspiration. PERICARDIAL EFFUSION There is no evidence of significant pericardial effusion. Critical Notification Critical Value: No <Conclusion> The Ejection Fraction is 55%. Septal motion consistent with prior CABG. Otherwise, normal wall motion. Signed by : Leonel Qiu, Electronically Approved : 03/04/2018 12:03:40
== END | disposition home or self-care (01) ==
LOC: ECHO 10:35
PROVIDERS: ATTEND Internal Medicine Cardiovascular Disease
DX: I25.810 Atherosclerosis of coronary artery bypass graft(s) without angina pectoris (principal); I42.8 Other cardiomyopathies; Z95.1 Presence of aortocoronary bypass graft
CPT/HCPCS: 93306

== ENCOUNTER 2018-06-11 11:25 | Inpatient (IN) | payer BC, MEDICARE ==
[~2018-06-11] VITALS: Ht 162.6 cm; Wt 88.5 kg
[~2018-06-11 11:25] MED LIST changes: +OMEP20CA10 PO; -OMEP20CA9 PO
[2018-06-11] MEDS ORDERED: NITROGLYCERIN OINT 1 GM PACKET. TP ONE (12:00)
[2018-06-11] MEDS ORDERED: ASPIRIN CHEWABLE 81 MG TABLET. PO ONE (12:00)
--- NOTE | 2018-06-11 12:06 | EKG ---
[facility] [address] [place] [address] Test Date: 2018-06-11 Test Time: 11:31:04 Pat Name: KENDRICK WATSON Department: Room: Gender: F Ghost Writer: : [id number] Requested By: ELIEL BARRIOS Order Number: [id number] Reading MD: Leonel Qiu MD Measurements Intervals [place] Rate: 92 P: 34 TX: 184 QRS: -12 QRSD: 80 T: 106 QT: 376 QTc: 470 Interpretive Statements SINUS RHYTHM ATRIAL PREMATURE COMPLEX(ES) PRIOR SEPTAL AND POSSIBLE INFERIOR INFARCT NON-SPECIFIC LATERAL TWI Electronically Signed On 06-20-2018 9:27:38 CDT by Leonel Qiu MD
--- NOTE | 2018-06-11 12:06 | PHYS DOC ---
Past Medical History Past Medical History: CAD, Diabetes-Type II, High Cholesterol, Hypothyroid Past Surgical History: Coronary Bypass Surgery, Other Additional Past Surgical Histo: THYROIDECTOMY Adult General Chief Complaint Chief Complaint: CHEST PAIN HPI HPI Patient is a 63-year-old female who presents to the emergency department for evaluation. She states that for the past 2 weeks, she has been having increasing and recurrent episodes of discomfort in her chest, described as a tingling, with radiation towards her shoulders and neck area, which are usually relieved by vomiting. She states she has a history of GERD, but states that she had the exact same symptoms right before she had a bypass surgery. However, it is unclear whether her symptoms of GERD left her to have a stress test, and underlying coronary disease was discovered, and her symptoms are not related to her heart, although she states that immediately after her bypass surgery she stopped having similar symptoms. She called her diamond setter apprentice's office several weeks ago, and had her GERD medication increased, and was told that if her symptoms recur she should come to the emergency department, something she did today. She denies any exertional component precipitating her symptoms, denies any shortness of breath, pleuritic pain, dizziness or lightheadedness. There are no alleviating or exacerbating factors to her symptoms otherwise. The patient did have an outpatient CT scan just prior to coming to the emergency department, which she states was done secondary to routine surveillance from a lung nodule discovered during her perioperative period. The patient is having no complaints at this time, denies any current chest pain. Review of Systems Review of Systems Constitutional: Denies fever or chills [] Eyes: Denies change in visual acuity, redness, or eye pain [] HENT: Denies nasal congestion or sore throat [] Respiratory: Denies cough or shortness of breath [] Cardiovascular: No additional information not addressed in HPI [] GI: Denies abdominal pain, bloody stools or diarrhea [] : Denies dysuria or hematuria [] Musculoskeletal: Denies back pain or joint pain [] Integument: Denies rash or skin lesions [] Neurologic: Denies headache, focal weakness or sensory changes [] Endocrine: Denies polyuria or polydipsia [] All other systems were reviewed and found to be within normal limits, except as documented in this note. Current Medications Current Medications Current Medications Medications (Trade) Dose Ordered Sig/Vivienne Start Time Stop Time Status Last Admin Dose Admin Aspirin (Children'S Aspirin) 324 mg 1X ONCE 06/11/18 12:00 06/11/18 12:03 DC 06/11/18 12:29 324 MG Nitroglycerin (Nitro-Bid Oint) 1 inch 1X ONCE 06/11/18 12:00 06/11/18 12:03 DC Allergies Allergies Allergies Coded Allergies Type Severity Reaction Last Updated Verified codeine Allergy Intermediate Rash 11/07/17 Yes Physical Exam Physical Exam PHYSICAL EXAM: CONSTITUTIONAL: Well developed, well nourished HEAD: normocephalic, atraumatic EENT: PERRL, EOMI. Conjunctivae normal color, sclerae non-icteric; moist mucous membranes. NECK: Supple, non-tender; no meningismus. LUNGS: Lungs CTA, breathing even and unlabored. Normal air movement. HEART: Regular rate and rhythm, no murmur CHEST: No deformity; non-tender. There is a healed sternotomy scar. ABDOMEN: The abdomen is soft, and non-tender, no masses or bruits. EXTREM: Normal ROM; no deformity, no calf tenderness. Normal pulses palpable in all extremities. There is no pedal edema. SKIN: No rash; no diaphoresis NEURO: Alert; normal speech and cognition; CN's grossly intact; strength grossly intact without focal deficit. BACK: No CVA TTP. Current Patient Data Vital Signs Vital Signs Date Time Temp Pulse Resp B/P (MAP) Pulse Ox O2 Delivery O2 Flow Rate FiO2 06/11/18 11:25 97.8 88 20 160/77 (104) 99 Room Air 97.8 Lab Values Laboratory Tests Test 06/11/18 11:55 White Blood Count 7.7 x10^3/uL (4.0-11.0) Red Blood Count 4.91 x10^6/uL (3.50-5.40) Hemoglobin 13.8 g/dL (12.0-15.5) Hematocrit 41.8 % (36.0-47.0) Mean Corpuscular Volume 85 fL (79-100) Mean Corpuscular Hemoglobin 28 pg (25-35) Mean Corpuscular Hemoglobin Concent 33 g/dL (31-37) Red Cell Distribution Width 14.0 % (11.5-14.5) Platelet Count 287 x10^3/uL (140-400) Neutrophils (%) (Auto) 60 % (31-73) Lymphocytes (%) (Auto) 31 % (24-48) Monocytes (%) (Auto) 8 % (0-9) Eosinophils (%) (Auto) 1 % (0-3) Basophils (%) (Auto) 1 % (0-3) Neutrophils # (Auto) 4.6 x10^3uL (1.8-7.7) Lymphocytes # (Auto) 2.4 x10^3/uL (1.0-4.8) Monocytes # (Auto) 0.6 x10^3/uL (0.0-1.1) Eosinophils # (Auto) 0.1 x10^3/uL (0.0-0.7) Basophils # (Auto) 0.1 x10^3/uL (0.0-0.2) Sodium Level 140 mmol/L (136-145) Potassium Level 4.1 mmol/L (3.5-5.1) Chloride Level 103 mmol/L (98-107) Carbon Dioxide Level 26 mmol/L (21-32) Anion Gap 11 (6-14) Blood Urea Nitrogen 16 mg/dL (7-20) Creatinine 0.8 mg/dL (0.6-1.0) Estimated GFR (Cockcroft-Gault) 72.0 BUN/Creatinine Ratio 20 (6-20) Glucose Level 119 mg/dL (70-99) H Calcium Level 9.0 mg/dL (8.5-10.1) Total Bilirubin 0.4 mg/dL (0.2-1.0) Aspartate Amino Transferase (AST) 19 U/L (15-37) Alanine Aminotransferase (ALT) 23 U/L (14-59) Alkaline Phosphatase 78 U/L (46-116) Creatine Kinase 97 U/L (26-192) Creatine Kinase MB (Mass) 1.3 ng/mL (0.0-3.6) Creatine Kinase MB Relative Index 1.3 % (0-4) Troponin I Quantitative 0.020 ng/mL (0.000-0.055) GD-Rqi-E-Type Natriuretic Peptide 920 pg/mL (0-124) H Total Protein 7.1 g/dL (6.4-8.2) Albumin 3.2 g/dL (3.4-5.0) L Albumin/Globulin Ratio 0.8 (1.0-1.7) L Lipase 177 U/L (73-393) Laboratory Tests 06/11/18 11:55 Laboratory Tests 06/11/18 11:55 EKG EKG Normal sinus rhythm at a rate of 92 beats for minute, normal axis, normal intervals, nonspecific ST/T changes laterally, new compared to the patient's EKG from 11/10/17.[] Radiology/Procedures Radiology/Procedures [PROCEDURE: CT CHEST W/CONTRAST EXAM: Chest CT with intravenous contrast. HISTORY: Pulmonary nodule. TECHNIQUE: Computed tomographic images of the chest were obtained following the administration of 75 cc Omnipaque 300 intravenous contrast. Multiplanar reformatting was performed. *One or more of the following individualized dose reduction techniques were utilized for this examination: 1. Automated exposure control. 2. Adjustment of the mA and/or kV according to patient size. 3. Use of iterative reconstruction technique. COMPARISON: CT dated 11/08/2017. FINDINGS: The heart is normal in size. There is evidence of coronary artery bypass grafting. There is calcification of the mitral valve annulus. The aorta is normal in caliber and demonstrates a normal branching pattern. There is no pneumothorax or pleural effusion. There is no infiltrate. There is mild lingular pleural-parenchymal scarring and a few lingular calcified granulomas. There is a 2 mm nodule within the left lower lobe, benign in appearance. There is no pathologically enlarged mediastinal or hilar lymph node. There is no acute finding involving the upper abdomen. There are degenerative changes involving the thoracic spine. No is no suspicious osseous lesion. IMPRESSION: 1. No acute thoracic finding. 2. Lingular pleural parenchymal scarring and a few calcified irregular granulomas, one of which corresponds with a nodule of concern on the prior CT. No suspicious noncalcified pulmonary nodule is seen. 3. CABG. ] Course & Med Decision Making Course & Med Decision Making Pertinent Labs and Imaging studies reviewed. (See chart for details) [The patient's condition remains stable. Although her symptoms might be consistent with GERD, given the similarity to her pre-CABG symptoms, as well as her new EKG changes, definitive cardiac etiology needs to be ruled out. I spoke with JANET Ponce for cardiology, and I spoke with the hospitalist, who accepted the patient to the hospital for further evaluation and treatment.] Dragon Disclaimer Dragon Disclaimer This electronic medical record was generated, in whole or in part, using a voice recognition dictation system. Departure Departure Impression: Primary Impression: Chest pain Additional Impression: CAD (coronary artery disease) Disposition: 09 ADMITTED INPATIENT Admitting Physician: Fantasma Bates Condition: STABLE Referrals: ANDRADE LOPEZ APRN (PCP) Problem Qualifiers ELIEL BARRIOS MD Jun 11, 2018 12:05
[2018-06-11 12:07] LABS: BASO # 0.1 x10^3/uL (0.0-0.2); BASO % 1 % (0-3); EOS # 0.1 x10^3/uL (0.0-0.7); EOS % 1 % (0-3); HEMATOCRIT 41.8 % (36.0-47.0); HEMOGLOBIN 13.8 g/dL (12.0-15.5); LYMPH # 2.4 x10^3/uL (1.0-4.8); LYMPH % 31 % (24-48); MEAN CORPUSCULAR HEMOGLOBIN 28 pg (25-35); MEAN CORPUSCULAR HGB CONC 33 g/dL (31-37); MEAN CORPUSCULAR VOLUME 85 fL (79-100); MONO # 0.6 x10^3/uL (0.0-1.1); MONO % 8 % (0-9); NEUT # 4.6 x10^3uL (1.8-7.7); NEUT % 60 % (31-73); PLATELET COUNT 287 x10^3/uL (140-400); RED BLOOD COUNT 4.91 x10^6/uL (3.50-5.40); WHITE BLOOD COUNT 7.7 x10^3/uL (4.0-11.0)
[2018-06-11 12:24] LABS: CREATININE 0.8 mg/dL (0.6-1.0); POTASSIUM 4.1 mmol/L (3.5-5.1)
[2018-06-11 12:28] LABS: ALBUMIN 3.2 g/dL (3.4-5.0); ALBUMIN/GLOBULIN RATIO 0.8 (1.0-1.7); TOTAL BILIRUBIN 0.4 mg/dL (0.2-1.0); TOTAL PROTEIN 7.1 g/dL (6.4-8.2)
--- NOTE | 2018-06-11 13:24 | PDOC1 ---
History and Physical Date of Admission Date of Admission DATE: 06/11/18 TIME: 13:24 Identification/Chief Complaint Chief Complaint SEEN IN ER presented to the emergency department fo past 2 weeks, she has been having increasing and recurrent episodes of discomfort in her chest, described as a tingling, with radiation towards her shoulders and neck area, which are usually relieved by vomiting. She states she has a history of GERD, but states that she had the exact same symptoms right before she had a bypass surgery.SHE DOES HAVE ruq discomfort on palpitation on my exam Past Medical History Past Medical History Past Medical History Past Medical History Past Medical History: CAD, Diabetes-Type II, High Cholesterol, Hypothyroid Past Surgical History: Coronary Bypass Surgery, Other Additional Past Surgical Histo: THYROIDECTOMY no tobacco, no etoh FHX OBESITY POS Cardiovascular: CAD, HTN, Hyperlipidemia Pulmonary: No pertinent hx GI: No pertinent hx Hepatobiliary: No pertinent hx Psych: No pertinent hx Rheumatologic: No pertinent hx Infectious disease: No pertinent hx Renal/: No pertinent hx Endocrine: Diabetes Past Surgical History Past Surgical History: , Other Family History Family History: Coronary Artery Disease, Hypertension Social History Smoke: No ALCOHOL: none Drugs: None Current Problem List Problem List Problems Medical Problems: (1) CAD (coronary artery disease) Status: Acute (2) Chest pain Status: Acute Current Medications Current Medications Current Medications Aspirin (Children'S Aspirin) 324 mg 1X ONCE PO Last administered on 06/11/18at 12:29; Start 06/11/18 at 12:00; Stop 06/11/18 at 12:03; Status DC Nitroglycerin (Nitro-Bid Oint) 1 inch 1X ONCE TP ; Start 06/11/18 at 12:00; Stop 06/11/18 at 12:03; Status DC Active Scripts Active Oxycodone-Acetaminophen 5-325 (Oxycodone Hcl/Acetaminophen) 1 Each Tablet 1-2 Tab PO PRN Q4-6HRS PRN Aspirin Ec (Aspirin) 325 Mg Tablet. 325 Mg PO DAILYWBKFT Metoprolol Tartrate 50 Mg Tablet 50 Mg PO BID 30 Days Amiodarone Hcl 200 Mg Tablet 200 Mg PO DAILY 30 Days Reported Loratadine 10 Mg Tablet 1 Tab PO DAILY Vitamin D-3 (Cholecalciferol (Vitamin D3)) 2,000 Unit Capsule 2,000 Unit PO Omeprazole 20 Mg Capsule. 1 Cap PO DAILY Metformin Hcl Er (Metformin Hcl) 1,000 Mg Tab.er.24 1,000 Mg PO DAILYWBKFT Atorvastatin Calcium 80 Mg Tablet 80 Mg PO DAILY Levothyroxine Sodium 100 Mcg Tablet 100 Mcg PO DAILYAC Allergies Allergies: Coded Allergies: codeine (Verified Allergy, Intermediate, Rash, 11/07/17) ROS Review of System Review of Systems Review of Systems Constitutional: Denies fever or chills [] Eyes: Denies change in visual acuity, redness, or eye pain [] HENT: Denies nasal congestion or sore throat [] Respiratory: Denies cough or shortness of breath [] Cardiovascular: No additional information not addressed in HPI [] GI:RUQ/ EPIGASTRIC DISCOMFORT abdominal pain, NO bloody stools or diarrhea [] : Denies dysuria or hematuria [] Musculoskeletal: Denies back pain or joint pain SOME LEFT BACK/ FLANK PAIN NOT SEVERE[] Integument: Denies rash or skin lesions [] Neurologic: Denies headache, focal weakness or sensory changes [] Endocrine: Denies polyuria or polydipsia [] 14 PT systems were reviewed and found to be within normal limits, except as documented in this note. PSYCHOLOGICAL ROS: No: Anxiety, Behavioral Disorder, Concentration difficultie , Decreased libido, Depression, Disorientation, Hallucinations, Hostility, Irritablity, Memory difficulties, Mood Swings, Obsessive thoughts, Physical abuse, Sexual abuse, Sleep disturbances, Suicidal ideation, Other Eyes: No Blurry vision, No Decreased vision, No Double vision, No Dry eyes, No Excessive tearing, No Eye Pain, No Itchy Eyes, No Loss of vision, No Photophobia , No Scotomata, No Uses contacts, No Uses glasses, No Other ALLERGY AND IMMUNOLOGY: No: Hives, Insect Bite Sensitivity, Itchy/Watery Eyes, Nasal Congestion, Post Nasal Drip, Seasonal Allergies, Other ENDOCRINE: No: Breast Changes, Galactorrhea, Hair Pattern Changes, Hot Flashes , Malaise/lethargy, Mood Swings, Palpitations, Polydipsia/polyuria, Skin Changes , Temperature Intolerance, Unexpected Weight Changes, Other Cardiovascular: yes Chest Pain Genitourinary: No Dysuria, No Frequency, No Incontinence, No Hematuria, No Retention, No Discharge, No Urgency, No Pain, No Flank Pain, No Other, No , No , No , No , No , No , No Musculoskeletal: No Gait Disturbance, No Joint Pain, No Joint Stiffness, No Joint Swelling, No Muscle Pain, No Muscular Weakness, No Pain In:, No Swelling In:, No Other Physical Exam Physical Exam Physical Exam Physical Exam PHYSICAL EXAM: CONSTITUTIONAL: Well developed, well nourished HEAD: normocephalic, atraumatic EENT: PERRL, EOMI. Conjunctivae normal color, sclerae non-icteric; moist mucous membranes. NECK: Supple, non-tender; no meningismus. LUNGS: Lungs CTA, breathing even and unlabored. Normal air movement. HEART: Regular rate and rhythm, no murmur CHEST: No deformity; non-tender. There is a healed sternotomy scar. ABDOMEN: The abdomen is soft, and non-tender, no masses or bruits. EXTREM: Normal ROM; no deformity, no calf tenderness. Normal pulses palpable in all extremities. There is no pedal edema. SKIN: No rash; no diaphoresis NEURO: Alert; normal speech and cognition; CN's grossly intact; strength grossly intact without focal deficit. BACK: No CVA TTP. General: Alert, Oriented X3, Cooperative, No acute distress HEENT: Atraumatic, PERRLA Lungs: Clear to auscultation Heart: S1S2, RRR, no thrills, no rubs Breasts: Not examined Abdomen: Normal bowel sounds, Soft, Other (MILD RUQ PAIN WITH INHALATION) Rectal Exam: not examined PELVIC: Examination not indicated Extremities: No cyanosis Skin: No rashes Neuro: Normal speech, Cranial nerves 3-12 NL Psych/Mental Status: Mental status NL, Mood NL Vitals Vitals Vital Signs Date Time Temp Pulse Resp B/P (MAP) Pulse Ox O2 Delivery O2 Flow Rate FiO2 06/11/18 11:25 97.8 88 20 160/77 (104) 99 Room Air 97.8 Labs Labs Laboratory Tests Test 06/11/18 11:55 White Blood Count 7.7 x10^3/uL (4.0-11.0) Red Blood Count 4.91 x10^6/uL (3.50-5.40) Hemoglobin 13.8 g/dL (12.0-15.5) Hematocrit 41.8 % (36.0-47.0) Mean Corpuscular Volume 85 fL (79-100) Mean Corpuscular Hemoglobin 28 pg (25-35) Mean Corpuscular Hemoglobin Concent 33 g/dL (31-37) Red Cell Distribution Width 14.0 % (11.5-14.5) Platelet Count 287 x10^3/uL (140-400) Neutrophils (%) (Auto) 60 % (31-73) Lymphocytes (%) (Auto) 31 % (24-48) Monocytes (%) (Auto) 8 % (0-9) Eosinophils (%) (Auto) 1 % (0-3) Basophils (%) (Auto) 1 % (0-3) Neutrophils # (Auto) 4.6 x10^3uL (1.8-7.7) Lymphocytes # (Auto) 2.4 x10^3/uL (1.0-4.8) Monocytes # (Auto) 0.6 x10^3/uL (0.0-1.1) Eosinophils # (Auto) 0.1 x10^3/uL (0.0-0.7) Basophils # (Auto) 0.1 x10^3/uL (0.0-0.2) Sodium Level 140 mmol/L (136-145) Potassium Level 4.1 mmol/L (3.5-5.1) Chloride Level 103 mmol/L (98-107) Carbon Dioxide Level 26 mmol/L (21-32) Anion Gap 11 (6-14) Blood Urea Nitrogen 16 mg/dL (7-20) Creatinine 0.8 mg/dL (0.6-1.0) Estimated GFR (Cockcroft-Gault) 72.0 BUN/Creatinine Ratio 20 (6-20) Glucose Level 119 mg/dL (70-99) Calcium Level 9.0 mg/dL (8.5-10.1) Total Bilirubin 0.4 mg/dL (0.2-1.0) Aspartate Amino Transf (AST/SGOT) 19 U/L (15-37) Alanine Aminotransferase (ALT/SGPT) 23 U/L (14-59) Alkaline Phosphatase 78 U/L (46-116) Creatine Kinase 97 U/L (26-192) Creatine Kinase MB (Mass) 1.3 ng/mL (0.0-3.6) Creatine Kinase MB Relative Index 1.3 % (0-4) Troponin I Quantitative 0.020 ng/mL (0.000-0.055) EU-Wem-W-Type Natriuretic Peptide 920 pg/mL (0-124) Total Protein 7.1 g/dL (6.4-8.2) Albumin 3.2 g/dL (3.4-5.0) Albumin/Globulin Ratio 0.8 (1.0-1.7) Lipase 177 U/L (73-393) Laboratory Tests Test 06/11/18 11:55 White Blood Count 7.7 x10^3/uL (4.0-11.0) Red Blood Count 4.91 x10^6/uL (3.50-5.40) Hemoglobin 13.8 g/dL (12.0-15.5) Hematocrit 41.8 % (36.0-47.0) Mean Corpuscular Volume 85 fL (79-100) Mean Corpuscular Hemoglobin 28 pg (25-35) Mean Corpuscular Hemoglobin Concent 33 g/dL (31-37) Red Cell Distribution Width 14.0 % (11.5-14.5) Platelet Count 287 x10^3/uL (140-400) Neutrophils (%) (Auto) 60 % (31-73) Lymphocytes (%) (Auto) 31 % (24-48) Monocytes (%) (Auto) 8 % (0-9) Eosinophils (%) (Auto) 1 % (0-3) Basophils (%) (Auto) 1 % (0-3) Neutrophils # (Auto) 4.6 x10^3uL (1.8-7.7) Lymphocytes # (Auto) 2.4 x10^3/uL (1.0-4.8) Monocytes # (Auto) 0.6 x10^3/uL (0.0-1.1) Eosinophils # (Auto) 0.1 x10^3/uL (0.0-0.7) Basophils # (Auto) 0.1 x10^3/uL (0.0-0.2) Sodium Level 140 mmol/L (136-145) Potassium Level 4.1 mmol/L (3.5-5.1) Chloride Level 103 mmol/L (98-107) Carbon Dioxide Level 26 mmol/L (21-32) Anion Gap 11 (6-14) Blood Urea Nitrogen 16 mg/dL (7-20) Creatinine 0.8 mg/dL (0.6-1.0) Estimated GFR (Cockcroft-Gault) 72.0 BUN/Creatinine Ratio 20 (6-20) Glucose Level 119 mg/dL (70-99) Calcium Level 9.0 mg/dL (8.5-10.1) Total Bilirubin 0.4 mg/dL (0.2-1.0) Aspartate Amino Transf (AST/SGOT) 19 U/L (15-37) Alanine Aminotransferase (ALT/SGPT) 23 U/L (14-59) Alkaline Phosphatase 78 U/L (46-116) Creatine Kinase 97 U/L (26-192) Creatine Kinase MB (Mass) 1.3 ng/mL (0.0-3.6) Creatine Kinase MB Relative Index 1.3 % (0-4) Troponin I Quantitative 0.020 ng/mL (0.000-0.055) GS-Ctp-K-Type Natriuretic Peptide 920 pg/mL (0-124) Total Protein 7.1 g/dL (6.4-8.2) Albumin 3.2 g/dL (3.4-5.0) Albumin/Globulin Ratio 0.8 (1.0-1.7) Lipase 177 U/L (73-393) Images Images EXAM: Chest CT with intravenous contrast. HISTORY: Pulmonary nodule. TECHNIQUE: Computed tomographic images of the chest were obtained following the administration of 75 cc Omnipaque 300 intravenous contrast. Multiplanar reformatting was performed. *One or more of the following individualized dose reduction techniques were utilized for this examination: 1. Automated exposure control. 2. Adjustment of the mA and/or kV according to patient size. 3. Use of iterative reconstruction technique. COMPARISON: CT dated 11/08/2017. FINDINGS: The heart is normal in size. There is evidence of coronary artery bypass grafting. There is calcification of the mitral valve annulus. The aorta is normal in caliber and demonstrates a normal branching pattern. There is no pneumothorax or pleural effusion. There is no infiltrate. There is mild lingular pleural-parenchymal scarring and a few lingular calcified granulomas. There is a 2 mm nodule within the left lower lobe, benign in appearance. There is no pathologically enlarged mediastinal or hilar lymph node. There is no acute finding involving the upper abdomen. There are degenerative changes involving the thoracic spine. No is no suspicious osseous lesion. IMPRESSION: 1. No acute thoracic finding. 2. Lingular pleural parenchymal scarring and a few calcified irregular granulomas, one of which corresponds with a nodule of concern on the prior CT. No suspicious noncalcified pulmonary nodule is seen. 3. CABG. Electronically signed by: Marsha Valle MD (06/11/2018 12:13 PM) [id number] M-Mode DIMENSIONS Left Atrium(MM) 4.16 (2.5-4.0cm) Aortic Root 3.02 (2.2-3.7cm) Aortic Valve AoV Peak Fito. 124.4cm/s AoV VTI 30.4cm AO Peak GR. 6.2mmHg LVOT Peak Fito. 87.3cm/s AO Mean GR. 3mmHg JOAQUIM (VMAX) 2.04cm2 JOAQUIM (VTI) 2.00cm2 Mitral Valve MV E Velocity 93.0cm/s MV E Peak Gr. 4mmHg MV DECEL TIME 336ms MV A Velocity 77.6cm/s MV E Mean Gr. 2mmHg E/A Ratio 1.2 MV A Duration 129ms Pulmonary Valve PV Peak Velocity 93.0cm/s Pulmonary Vein S1 Velocity 31.7cm/s D2 Velocity 42.5cm/s PVa duration 88msec LEFT VENTRICLE The left ventricle is normal size. There is normal left ventricular wall thickness. The Ejection Fraction is 55%. Septal motion consistent with prior CABG. Otherwise, normal wall motion. Transmitral Doppler flow pattern is Grade II-pseudonormal filling dynamics. RIGHT VENTRICLE The right ventricle is normal size. There is normal right ventricular wall thickness. The right ventricular systolic function is normal. ATRIA The left atrium is mildly dilated. The right atrium is mildly dilated. The interatrial septum is intact with no evidence for an atrial septal defect or patent foramen ovale as noted on 2-D or Doppler imaging. AORTIC VALVE The aortic valve is normal in structure and function. The aortic valve is trileaflet. Doppler and Color Flow revealed trace aortic regurgitation. There is no significant aortic valvular stenosis. MITRAL VALVE Mitral annular calcification is mild. There is no evidence of mitral valve prolapse. There is no mitral valve stenosis. Doppler and Color-flow revealed mild mitral regurgitation. TRICUSPID VALVE The tricuspid valve is normal in structure and function. Doppler and Color Flow revealed trace tricuspid regurgitation. There is no tricuspid valve prolapse or vegetation. There is no tricuspid valve stenosis. PULMONIC VALVE Pulmonic valve not well visualized. GREAT VESSELS The aortic root is normal in size. The ascending aorta is normal in size. The IVC is normal in size and collapses >50% with inspiration. PERICARDIAL EFFUSION There is no evidence of significant pericardial effusion. Critical Notification Critical Value: No <Conclusion> The Ejection Fraction is 55%. Septal motion consistent with prior CABG. Otherwise, normal wall motion. Signed by : Tiny Robin, Electronically Approved : 03/04/2018 12:03:40 DICTATED and SIGNED BY: TINY ROBIN MD DATE: 03/04/18 1203 VTE Prophylaxis Ordered VTE Prophylaxis Devices: No VTE Pharmacological Prophylaxi: Yes Assessment/Plan Assessment/Plan IMPRESSION 1. Chest pain, atypical. Lingular pleural parenchymal scarring and a few calcified irregular granulomas, one of which corresponds with a nodule of concern on the prior CT. No suspicious noncalcified pulmonary nodule is seen. 2. CABG 10/2017. PMC 3. Hypertension; 4. Hyperlipidemia; 5. Diabetes, 6. GERD; ON omeprazole BID 7. MORBID OBESITY 8. HYPOTHYROID STATE ON REPLACEMENT RX plan CVC ADMIT troponin series Resume secondary prevention measures Consider GI evaluation; ABD SONO EXCLUDE GB DISEASE MPI 06/12 EVAL OF ischemia. LOVENOX SQ DVT PROPHYLAXIS DIANNE WING MD Jun 11, 2018 13:24
[2018-06-11 15:07] VITALS: BP 133/60
--- NOTE | 2018-06-11 15:13 | PDOC2 ---
CARDIAC CONSULT DATE OF CONSULT Date of Consult DATE: 06/11/18 TIME: 15:07 REASON FOR CONSULT Reason for Consult: Chest pain REFERRING PHYSICIAN Referring Physician: Dr. Michael SOURCE Source: Chart review, Patient HISTORY OF PRESENT ILLNESS HISTORY OF PRESENT ILLNESS This is a 63 yo female, with a history of CAD s/p CABG 10/2017, who presented with complaints of chest pain. Patient reports experiencing intermittent chest discomfort (tingling, pressure) intermittently for the last couple of months. Located in her central chest. Radiated to her bilateral arms and through to her back. Episode of pain are associated with occurrence on nausea ad vomiting. Feels better following emesis. PCP recommended to double omeprazole. Patient reports this seemed to help somewhat and episode seemed to be less frequent. Today, patient was at family for routine chest CT for follow up of lung nodule. After walking bad to her car from the hospital. Had another episode where she had central chest pressure with radiation to her arms and back. Subsequently vomited. Patient reports having these very same symptoms prior to CABG, which is what prompted her to have ischemic evaluation which was notable for significant coronary disease. Patient reports these episode has resolved for a period of time following CABG. She is presently comfortable and CP free. PAST MEDICAL HISTORY Cardiovascular: CAD, HTN, Hyperlipidemia Pulmonary: No pertinent hx CENTRAL NERVOUS SYSTEM: Other (no pertinent hx) GI: GERD Heme/Onc: No pertinent hx Hepatobiliary: No pertinent hx Psych: No pertinent hx Musculoskeletal: Osteoarthritis Rheumatologic: No pertinent hx Infectious disease: No pertinent hx ENT: No pertinent hx Renal/: No pertinent hx Endocrine: Diabetes, Hypothyroidism Dermatology: No pertinent hx PAST SURGICAL HISTORY Past Surgical History: CABG FAMILY HISTORY Family History: Heart Disease, Hypertension SOCIAL HISTORY Smoke: No ALCOHOL: none Drugs: None Lives: with Family CURRENT MEDICATIONS CURRENT MEDICATIONS Current Medications Medications (Trade) Dose Ordered Sig/Vivienne Route PRN Reason Start Time Stop Time Status Last Admin Dose Admin Aspirin (Children'S Aspirin) 324 mg 1X ONCE PO 06/11/18 12:00 06/11/18 12:03 DC 06/11/18 12:29 ALLERGIES ALLERGIES: Coded Allergies: codeine (Verified Allergy, Intermediate, Rash, 11/07/17) ROS Review of System 14 point ROS conducted with pertinent positives noted above in HPI. PHYSICAL EXAM General: Alert, Oriented X3, Cooperative, No acute distress HEENT: Atraumatic, Mucous membr. moist/pink Lungs: Clear to auscultation, Normal air movement Heart: Regular rate, Normal S1, Normal S2 Abdomen: No tenderness Extremities: No edema, Normal pulses Skin: No significant lesion Neuro: Normal speech, Sensation intact Psych/Mental Status: Mental status NL, Mood NL MUSCULOSKELETAL: Osteoarthritic changes both hands VITALS VITALS Vital Signs Date Time Temp Pulse Resp B/P (MAP) Pulse Ox O2 Delivery O2 Flow Rate FiO2 06/11/18 14:03 64 18 100/57 (71) 98 Room Air 06/11/18 11:25 97.8 97.8 LABS Lab: Laboratory Tests Test 06/11/18 11:55 White Blood Count 7.7 x10^3/uL (4.0-11.0) Red Blood Count 4.91 x10^6/uL (3.50-5.40) Hemoglobin 13.8 g/dL (12.0-15.5) Hematocrit 41.8 % (36.0-47.0) Mean Corpuscular Volume 85 fL (79-100) Mean Corpuscular Hemoglobin 28 pg (25-35) Mean Corpuscular Hemoglobin Concent 33 g/dL (31-37) Red Cell Distribution Width 14.0 % (11.5-14.5) Platelet Count 287 x10^3/uL (140-400) Neutrophils (%) (Auto) 60 % (31-73) Lymphocytes (%) (Auto) 31 % (24-48) Monocytes (%) (Auto) 8 % (0-9) Eosinophils (%) (Auto) 1 % (0-3) Basophils (%) (Auto) 1 % (0-3) Neutrophils # (Auto) 4.6 x10^3uL (1.8-7.7) Lymphocytes # (Auto) 2.4 x10^3/uL (1.0-4.8) Monocytes # (Auto) 0.6 x10^3/uL (0.0-1.1) Eosinophils # (Auto) 0.1 x10^3/uL (0.0-0.7) Basophils # (Auto) 0.1 x10^3/uL (0.0-0.2) Sodium Level 140 mmol/L (136-145) Potassium Level 4.1 mmol/L (3.5-5.1) Chloride Level 103 mmol/L (98-107) Carbon Dioxide Level 26 mmol/L (21-32) Anion Gap 11 (6-14) Blood Urea Nitrogen 16 mg/dL (7-20) Creatinine 0.8 mg/dL (0.6-1.0) Estimated GFR (Cockcroft-Gault) 72.0 BUN/Creatinine Ratio 20 (6-20) Glucose Level 119 mg/dL (70-99) Calcium Level 9.0 mg/dL (8.5-10.1) Total Bilirubin 0.4 mg/dL (0.2-1.0) Aspartate Amino Transf (AST/SGOT) 19 U/L (15-37) Alanine Aminotransferase (ALT/SGPT) 23 U/L (14-59) Alkaline Phosphatase 78 U/L (46-116) Creatine Kinase 97 U/L (26-192) Creatine Kinase MB (Mass) 1.3 ng/mL (0.0-3.6) Creatine Kinase MB Relative Index 1.3 % (0-4) Troponin I Quantitative 0.020 ng/mL (0.000-0.055) VK-Kwi-S-Type Natriuretic Peptide 920 pg/mL (0-124) Total Protein 7.1 g/dL (6.4-8.2) Albumin 3.2 g/dL (3.4-5.0) Albumin/Globulin Ratio 0.8 (1.0-1.7) Lipase 177 U/L (73-393) ECHOCARDIOGRAM ECHOCARDIOGRAM <Conclusion> The Ejection Fraction is 55%. Septal motion consistent with prior CABG. Otherwise, normal wall motion. DATE: 03/04/18 1203 STRESS TEST STRESS TEST Conclusion 1. Good exercise tolerance. 2. No EKG evidence of stress-induced ischemia. 3. Nuclear imaging shows a moderate area of reversible ischemia in the inferior lateral wall. 4. Left ventricular ejection fraction of 53%. 5. Moderate to moderately high risk Lexiscan nuclear stress test. DATE: 11/01/17 1315 HEART CATH HEART CATH Findings. Hemodynamics. LV pressure 130/6, 12 Aortic root pressure 128/60. Coronaries. The left main was a normal-size vessel with no lesions. Left anterior descending. The LAD was a mildly calcified vessel. It normal distribution. It had mid greater than 95% eccentric lesion present. Left circumflex. The left circumflex is a moderate size vessel. It had distal small vessel disease. Right coronary artery. The right coronary was a moderate size vessel. It had a subtotal mid lesion. Left ventriculogram. Left ventricular systolic function appeared to have mild anterior wall hypokinesis. Ejection fraction was estimated at 50%. <Conclusion> Multivessel coronary artery disease in a diabetic patient including a severe LAD lesion. Subtotal right coronary artery lesion. Intact LV systolic function. DATE: 11/07/17 1648 ASSESSMENT/PLAN ASSESSMENT/PLAN 1. Chest pain, atypical. Initial trop negative. Doubt ACS. Echo 03/19 with preserved LV systolic function with an EF of 55% 2. CAD s/p CABG 10/2017. 3. Hypertension; controlled 4. Hyperlipidemia; statin 5. Diabetes, II; as per PCP 6. GERD; recently increased omeprazole to BID Recommendations Trend troponin Resume secondary prevention measures Consider GI evaluation; will defer to PCP D/w primary cardiology, given nature of symptoms that were consistent with those prior to CABG, will proceed with MPI in the am to r/o ischemia. SUSIE PRESCOTT APRN Jun 11, 2018 15:12
[2018-06-11] MEDS: CETIRIZINE HCL 10 MG TABLET. PO SCH (17:30)
[2018-06-11] MEDS: PANTOPRAZOLE 40 MG TABLET.DR. PO SCH (18:00)
[2018-06-11 19:10] VITALS: BP 106/56
[2018-06-11] MEDS ORDERED: ENOXAPARIN 40 MG/0.4 ML SYRINGE. SQ SCH (21:00)
[2018-06-11] MEDS: ATORVASTATIN CALCIUM 40 MG TABLET. PO SCH (21:01)
[2018-06-11] MEDS: METOPROLOL TART IMMED RELEASE 50 MG TABLET. PO SCH (21:02)
[2018-06-11 23:10] VITALS: BP 106/56
--- NOTE | 2018-06-12 02:38 | RAD ---
Indication:RUQ PAIN TECHNIQUE: Grayscale, color Doppler and spectral waveform is of the abdomen obtained. COMPARISON:None FINDINGS:Visualized pancreas within normal limits. Pancreatic tail not visualized due to overlying bowel gas. IVC is patent. No aortic aneurysm. Main portal vein is patent. Liver measures 17 cm in longest dimension and is top normal in size with diffusely increased echogenicity. No gallstones, pericholecystic fluid or gallbladder wall thickening. CBD measures 4 mm in diameter and is within normal limits. Right kidney shows no hydronephrosis. IMPRESSION: 1. Hepatic steatosis. 2. No cholelithiasis or sonographic evidence of acute cholecystitis. Electronically signed by: Palmer Brush DO (06/12/2018 2:35 AM) [facility]
[2018-06-12 03:35] VITALS: BP 103/58
[2018-06-12 04:28] LABS: CHOLESTEROL/HDL RATIO 3.2
[2018-06-12 07:00] VITALS: BP 109/58
[2018-06-12] MEDS: LEVOTHYROXINE 100 MCG TABLET PO SCH (07:37)
[2018-06-12] MEDS: PANTOPRAZOLE 40 MG TABLET.DR. PO SCH (07:37)
[2018-06-12] MEDS ORDERED: REGADENOSON 0.4 MG/5 ML DISP.SYRIN. IV ONE (08:30)
[2018-06-12] MEDS: CETIRIZINE HCL 10 MG TABLET. PO SCH (10:07)
[2018-06-12] MEDS: ASPIRIN ENTERIC COATED 325 MG TABLET.DR. PO SCH (10:07)
[2018-06-12] MEDS: CHOLECALCIFEROL (VITAMIN D3) 1,000 UNIT TABLET PO SCH (10:09)
[2018-06-12 10:53] VITALS: BP 107/65
[2018-06-12] MEDS: METOPROLOL TART IMMED RELEASE 50 MG TABLET. PO SCH ×2 (11:39→22:07)
--- NOTE | 2018-06-12 12:23 | PDOC ---
PROGRESS NOTES History of Present Illness History of Present Illness Assessment/Plan Assessment/Plan IMPRESSION 1. Chest pain, atypical. but concerning for unstable angina Reversible defect with transient ischemic dilation suggestive of multivessel disease. Normal EF at > 60% Moderate to high risk study.for ischemia Lingular pleural parenchymal scarring and a few calcified irregular granulomas, one of which corresponds with a nodule of concern on the prior CT. No suspicious noncalcified pulmonary nodule is seen. 2. CABG 10/2017. PMC 3. Hypertension; 4. Hyperlipidemia; 5. Diabetes, 6. GERD; ON omeprazole BID 7. MORBID OBESITY 8. HYPOTHYROID STATE ON REPLACEMENT RX plan CVC ADMIT troponin series secondary prevention measures Consider GI evaluation; ABD SONO EXCLUDE GB DISEASE neg MPI 06/12 EVAL OF ischemia. abnormal LOVENOX SQ DVT PROPHYLAXIS Vitals Vitals Vital Signs Date Time Temp Pulse Resp B/P (MAP) Pulse Ox O2 Delivery O2 Flow Rate FiO2 06/12/18 11:39 75 118/58 06/12/18 10:53 98.8 18 97 Room Air 98.8 Physical Exam General: Alert, Oriented X3, Cooperative, No acute distress Heart: Regular rate, Normal S1, Normal S2 Lungs: Clear Abdomen: Normal bowel sounds, Soft, Other (MILD RUQ PAIN WITH INHALATION) Extremities: No cyanosis Skin: No rashes Labs LABS STRESS DATA End Diast. Vol. 100.0ml Av. Heart Rate 72.0bpm End Syst. Vol. 39.0ml CO Index BSA 0.0L/min Myocardial Mass 144.0g Eject. Fraction 61.0% Stress Rates Pk. Fill Rate 2.18EDV/sec LVtime Pk. Fill 168.21msec Pk. Empty Rate 3.47ESV/sec LVtime Pk. Eject 234.02msec 04/04 Pk. Fill 1.17EDV/sec Stress Scores Regional WT 0.00 Summed WT 6.00 Regional WM 0.00 Summed WM 13.00 LV Perfusion There is a large sized, mid to distal anteroseptal, anterior and apical severe in intensity partially reversible defect suggestive of ischemia/impaired perfusion reserve int he LAD territory with prior infarct. There is TID suggestive of multivessel disease. Wall Motion Mild to moderate hypokinesis with EF of 61% LV Perfusion 1 TCD/TID: Yes LV Perf. Quant 17 Seg. SSS 16.00 17 Seg. SRS 7.00 17 Seg. SDS 9.00 Stress Defect Extent (% LAD) 56.90 Rest Defect Extent (% LAD) 30.60 Rev. Defect Extent (% LAD) 56.90 Stress Defect Extent (% LCX) 6.30 Rest Defect Extent (% LCX) 0.00 Rev. Defect Extent (% LCX) 6.30 Stress Defect Extent (% RCA) 11.10 Rest Defect Extent (% RCA) 2.20 Rev. Defect Extent (% RCA) 10.00 Stress Defect Extent (% KIKO) 35.70 Rest Defect Extent (% KIKO) 14.80 Rev. Defect Extent (% KIKO) 35.40 Other Information Quality:Average Risk Assessment: Moderate-High Risk Conclusion 1. Abnormal baseline EKG w/o significant changes with stress. 2. Reversible defect with transient ischemic dilation suggestive of multivessel disease. 3. Normal EF at > 60% 4. Moderate to high risk study. Signed by : Tiny Robin, Electronically Approved : 06/12/2018 12:40:17 DICTATED and SIGNED BY: TINY ROBIN MD DATE: 06/12/18 1240 REASON: RUQ PAIN PROCEDURE: ABDOMEN COMPLETE Indication:RUQ PAIN TECHNIQUE: Grayscale, color Doppler and spectral waveform is of the abdomen obtained. COMPARISON:None FINDINGS:Visualized pancreas within normal limits. Pancreatic tail not visualized due to overlying bowel gas. IVC is patent. No aortic aneurysm. Main portal vein is patent. Liver measures 17 cm in longest dimension and is top normal in size with diffusely increased echogenicity. No gallstones, pericholecystic fluid or gallbladder wall thickening. CBD measures 4 mm in diameter and is within normal limits. Right kidney shows no hydronephrosis. IMPRESSION: 1. Hepatic steatosis. 2. No cholelithiasis or sonographic evidence of acute cholecystitis. Electronically signed by: Palmer Brush DO (06/12/2018 2:35 AM) [facility] Laboratory Tests Test 06/11/18 15:45 06/11/18 21:15 06/12/18 03:00 Troponin I Quantitative 0.045 ng/mL (0.000-0.055) 0.036 ng/mL (0.000-0.055) Triglycerides Level 83 mg/dL (0-150) Cholesterol Level 184 mg/dL (0-200) LDL Cholesterol, Calculated 109 mg/dL (0-100) VLDL Cholesterol, Calculated 17 mg/dL (0-40) Non-HDL Cholesterol Calculated 126 mg/dL (0-129) HDL Cholesterol 58 mg/dL (40-60) Cholesterol/HDL Ratio 3.2 Assessment and Plan Assessmemt and Plan Problems Medical Problems: (1) CAD (coronary artery disease) Status: Acute (2) Chest pain Status: Acute Comment Review of Relevant I have reviewed the following items asad (where applicable) has been applied. Labs Laboratory Tests Test 06/11/18 11:55 06/11/18 15:45 06/11/18 21:15 06/12/18 03:00 White Blood Count 7.7 x10^3/uL (4.0-11.0) Red Blood Count 4.91 x10^6/uL (3.50-5.40) Hemoglobin 13.8 g/dL (12.0-15.5) Hematocrit 41.8 % (36.0-47.0) Mean Corpuscular Volume 85 fL (79-100) Mean Corpuscular Hemoglobin 28 pg (25-35) Mean Corpuscular Hemoglobin Concent 33 g/dL (31-37) Red Cell Distribution Width 14.0 % (11.5-14.5) Platelet Count 287 x10^3/uL (140-400) Neutrophils (%) (Auto) 60 % (31-73) Lymphocytes (%) (Auto) 31 % (24-48) Monocytes (%) (Auto) 8 % (0-9) Eosinophils (%) (Auto) 1 % (0-3) Basophils (%) (Auto) 1 % (0-3) Neutrophils # (Auto) 4.6 x10^3uL (1.8-7.7) Lymphocytes # (Auto) 2.4 x10^3/uL (1.0-4.8) Monocytes # (Auto) 0.6 x10^3/uL (0.0-1.1) Eosinophils # (Auto) 0.1 x10^3/uL (0.0-0.7) Basophils # (Auto) 0.1 x10^3/uL (0.0-0.2) Sodium Level 140 mmol/L (136-145) Potassium Level 4.1 mmol/L (3.5-5.1) Chloride Level 103 mmol/L (98-107) Carbon Dioxide Level 26 mmol/L (21-32) Anion Gap 11 (6-14) Blood Urea Nitrogen 16 mg/dL (7-20) Creatinine 0.8 mg/dL (0.6-1.0) Estimated GFR (Cockcroft-Gault) 72.0 BUN/Creatinine Ratio 20 (6-20) Glucose Level 119 mg/dL (70-99) Calcium Level 9.0 mg/dL (8.5-10.1) Total Bilirubin 0.4 mg/dL (0.2-1.0) Aspartate Amino Transf (AST/SGOT) 19 U/L (15-37) Alanine Aminotransferase (ALT/SGPT) 23 U/L (14-59) Alkaline Phosphatase 78 U/L (46-116) Creatine Kinase 97 U/L (26-192) Creatine Kinase MB (Mass) 1.3 ng/mL (0.0-3.6) Creatine Kinase MB Relative Index 1.3 % (0-4) Troponin I Quantitative 0.020 ng/mL (0.000-0.055) 0.045 ng/mL (0.000-0.055) 0.036 ng/mL (0.000-0.055) GO-Pab-D-Type Natriuretic Peptide 920 pg/mL (0-124) Total Protein 7.1 g/dL (6.4-8.2) Albumin 3.2 g/dL (3.4-5.0) Albumin/Globulin Ratio 0.8 (1.0-1.7) Lipase 177 U/L (73-393) Triglycerides Level 83 mg/dL (0-150) Cholesterol Level 184 mg/dL (0-200) LDL Cholesterol, Calculated 109 mg/dL (0-100) VLDL Cholesterol, Calculated 17 mg/dL (0-40) Non-HDL Cholesterol Calculated 126 mg/dL (0-129) HDL Cholesterol 58 mg/dL (40-60) Cholesterol/HDL Ratio 3.2 Laboratory Tests Test 06/11/18 15:45 06/11/18 21:15 06/12/18 03:00 Troponin I Quantitative 0.045 ng/mL (0.000-0.055) 0.036 ng/mL (0.000-0.055) Triglycerides Level 83 mg/dL (0-150) Cholesterol Level 184 mg/dL (0-200) LDL Cholesterol, Calculated 109 mg/dL (0-100) VLDL Cholesterol, Calculated 17 mg/dL (0-40) Non-HDL Cholesterol Calculated 126 mg/dL (0-129) HDL Cholesterol 58 mg/dL (40-60) Cholesterol/HDL Ratio 3.2 Medications Current Medications Aspirin (Children'S Aspirin) 324 mg 1X ONCE PO Last administered on 06/11/18at 12:29; Start 06/11/18 at 12:00; Stop 06/11/18 at 12:03; Status DC Nitroglycerin (Nitro-Bid Oint) 1 inch 1X ONCE TP ; Start 06/11/18 at 12:00; Stop 06/11/18 at 12:03; Status DC Aspirin (Ecotrin) 325 mg DAILYWBKFT PO Last administered on 06/12/18at 10:07; Start 06/12/18 at 08:00 Levothyroxine Sodium (Synthroid) 100 mcg DAILYAC PO Last administered on at 07:37; Start 06/12/18 at 07:30 Metoprolol Tartrate (Lopressor) 50 mg BID PO Last administered on 06/12/18at 11: 39; Start 06/11/18 at 21:00 Atorvastatin Calcium (Lipitor) 80 mg QHS PO Last administered on 06/11/18at 21: 01; Start 06/11/18 at 21:00 Cetirizine HCl (ZyrTEC) 10 mg DAILY PO Last administered on 06/12/18at 10:07; Start 06/11/18 at 17:30 Pantoprazole Sodium (Protonix) 40 mg DAILYAC PO Last administered on 06/12/18at 07:37; Start 06/11/18 at 18:00 Vitamin D (Vitamin D3) 2,000 unit DAILY PO Last administered on 06/12/18at 10:09 ; Start 06/12/18 at 09:00 Enoxaparin Sodium (Lovenox 40mg Syringe) 40 mg Q24H SQ ; Start 06/11/18 at 21:00 Regadenoson (Lexiscan) 0.4 mg 1X ONCE IV ; Start 06/12/18 at 08:30; Stop at 08:31; Status DC Active Scripts Active Aspirin Ec (Aspirin) 325 Mg Tablet.dr 325 Mg PO DAILYWBKFT Metoprolol Tartrate 50 Mg Tablet 50 Mg PO BID 30 Days Reported Loratadine 10 Mg Tablet 1 Tab PO DAILY Vitamin D-3 (Cholecalciferol (Vitamin D3)) 2,000 Unit Capsule 2,000 Unit PO Omeprazole 20 Mg Capsule.dr 1 Cap PO DAILY Metformin Hcl Er (Metformin Hcl) 1,000 Mg Tab.er.24 1,000 Mg PO DAILYWBKFT Atorvastatin Calcium 80 Mg Tablet 80 Mg PO DAILY Levothyroxine Sodium 100 Mcg Tablet 100 Mcg PO DAILYAC Vitals/I & O Vital Sign - Last 24 Hours 06/11/18 06/11/18 06/11/18 06/11/18 12:28 12:33 13:03 14:03 Pulse 62 60 63 64 Resp 18 18 18 18 B/P (MAP) 126/68 (87) 125/67 (86) 111/71 (84) 100/57 (71) Pulse Ox 98 99 99 98 O2 Delivery Room Air Room Air Room Air Room Air 06/11/18 06/11/18 06/11/18 06/11/18 15:07 19:10 20:00 21:02 Temp 97.7 98.1 97.7 98.1 Pulse 64 68 68 Resp 18 18 B/P (MAP) 133/60 (84) 106/56 (73) 106/56 Pulse Ox 98 94 O2 Delivery Room Air Room Air Room Air 06/11/18 06/12/18 06/12/18 06/12/18 23:10 03:35 07:00 07:30 Temp 98.1 98.0 98.1 98.1 98.0 98.1 Pulse 59 65 60 Resp 18 18 18 B/P (MAP) 106/56 (73) 103/58 (73) 109/58 (75) Pulse Ox 97 96 97 O2 Delivery Room Air Room Air Room Air Room Air 06/12/18 06/12/18 10:53 11:39 Temp 98.8 98.8 Pulse 76 75 Resp 18 B/P (MAP) 107/65 (79) 118/58 Pulse Ox 97 O2 Delivery Room Air Intake and Output 06/11/18 06/11/18 06/12/18 14:59 22:59 06:59 Intake Total 300 ml 800 ml Balance 300 ml 800 ml DIANNE WING MD Jun 12, 2018 12:22
--- NOTE | 2018-06-12 12:40 | RAD ---
MR#: [id number] Date of Study: 06/12/2018 Ordering Physician: SUSIE PRESCOTT, Referring Physician: ROSALINO VALENTIN Tech: PERLA Cueto, ARRT (R) (N) APPROVED REPORT Test Type: Pharmacological Stress Nurse/Tech: Leola Yuan RN Test Indications: CAD Cardiac History: CABG 11/17,, Diabetes Medications: See Electronic Medical Record Medical History: See Electronic Medical Record Resting ECG: SR with BBB, elongated QT interval Resting Heart Rate: 65 bpm Resting Blood Pressure: 106/58mmHg Pretest Chest Pain: No chest pain Nurse/Tech Notes S1,S2 and lungs are clear to auscultation. Consent: The procedure was explained to the patient in lay terms. Informed consent was witnessed. [employer] eout was entered into [employer]. History and Stress Test performed by JACQUELINE Lujan Pharm. Details Pharmacologic stress testing was performed using 0.4mg per 5ml of regadenoson given intravenously ove r 7-10 seconds. Stress Symptoms Dyspnea,Nausea, headache POST EXERCISE Reason for Termination: Infusion complete Target HR: No Max HR: 104 bpm Max Blood Pressure: 114/63mmHg Blood Pressure response to exercise: Normal blood pressure response during stress. Heart Rate response to exercise: WNL Chest Pain: No. Arrhythmia: No. ST Change: No. INTERPRETATION Stress EKG Conclusion: Abnormal baseline EKG with anterior TWI Imaging Protocol IMAGE PROTOCOL: Rest Tc-99m/stress Tc-99m 1 day Rest: Stress: Viability: Radiopharm.Tc99m [id number] Sestamibi [id number] 33mCi Img Date 06/12/2018 06/12/2018 Inj-Img Wezy54lop. 60min. Rest Admin Site:IV - Right AntecubitalAdministrator:JACQUELINE Lujan Stress Admin Site: IV - Right AntecubitalAdministrator: JACQUELINE Lujan STRESS DATA End Diast. Vol.100.0mlAv. Heart Rate72.0bpm End Syst. Vol.39.0mlCO Index BSA0.0L/min Myocardial Xtep723.0gEject. Nrpeliwm11.0% Stress Rates Pk. Fill Rate2.18EDV/secLVtime Pk. Fill 168.21msec Pk. Empty Rate3.47ESV/secLVtime Pk. Ysorw032.02msec /3 Pk. Fill1.17EDV/sec Stress Scores Regional WT0.00Summed WT6.00 Regional WM0.00Summed WM13.00 LV Perfusion There is a large sized, mid to distal anteroseptal, anterior and apical severe in intensity partially reversible defect suggestive of ischemia/impaired perfusion reserve int he LAD territory with prior infarct. There is TID suggestive of multivessel disease. Wall Motion Mild to moderate hypokinesis with EF of 61% LV Perfusion 1 TCD/TID: Yes LV Perf. Quant 17 Seg. SSS16.00 17 Seg. SRS7.00 17 Seg. SDS9.00 Stress Defect Extent (% LAD)56.90Rest Defect Extent (% LAD)30.60Rev. Defect Extent (% LAD)56.90 Stress Defect Extent (% LCX) 6.30Rest Defect Extent (% LCX)0.00Rev. Defect Extent (% LCX)6.30 Stress Defect Extent (% RCA)11.10Rest Defect Extent (% RCA)2.20Rev. Defect Extent (% RCA)10.00 Stress Defect Extent (% KIKO)35.70Rest Defect Extent (% KIKO)14.80Rev. Defect Extent (% KIKO)35.40 Other Information Quality:Average Risk Assessment: Moderate-High Risk Conclusion 1. Abnormal baseline EKG w/o significant changes with stress. 2. Reversible defect with transient ischemic dilation suggestive of multivessel disease. 3. Normal EF at > 60% 4. Moderate to high risk study. Signed by : Leonel Qiu, Electronically Approved : 06/12/2018 12:40:17
--- NOTE | 2018-06-12 14:02 | NUR ---
SS following for discharge planning. SS reviewed pt chart. Pt is from home with spouse and is currently on room air. No discharge needs noted at this time. SS will continue to follow for pending discharge needs.
[2018-06-12 14:45] VITALS: BP 104/62
[2018-06-12 19:20] VITALS: BP 115/58
[2018-06-12] MEDS ORDERED: ENOXAPARIN 40 MG/0.4 ML SYRINGE. SQ SCH (21:00)
--- NOTE | 2018-06-12 21:00 | PDOC ---
Provider Note Provider Note Reviewed test results with the patient. She presents with symptoms similar to her pre-CABG symptoms. Cardiac stress test today reveals an area of infarct at the apex with moderate reversible rubi-infarct ischemia involving the anteroseptal and anterior rincon. Discussed risks benefits and alternatives to cardiac catheterization with the patient in light of her symptoms. She wishes to proceed. We will plan for this tomorrow morning. TINY ROBIN MD Jun 12, 2018 21:00
[2018-06-12] MEDS: ATORVASTATIN CALCIUM 40 MG TABLET. PO SCH (22:08)
[2018-06-13] VITALS (10 sets, daily range): BP systolic 99–148; BP diastolic 51–73
[2018-06-13] MEDS ORDERED: LIDOCAINE 1% PF 2 ML VIAL. ONE (07:40)
[2018-06-13] MEDS ORDERED: IOHEXOL 300 MG/ML 100ML VIAL. ONE ×2 (07:40→11:35)
[2018-06-13] MEDS: IV NORMAL SALINE 1000ML BAG 1,000 ML IV SCH ×2 (07:40→20:39)
[2018-06-13] MEDS: LEVOTHYROXINE 100 MCG TABLET PO SCH (07:44)
[2018-06-13] MEDS: PANTOPRAZOLE 40 MG TABLET.DR. PO SCH (07:44)
[2018-06-13] MEDS: CETIRIZINE HCL 10 MG TABLET. PO SCH (08:09)
[2018-06-13] MEDS: CHOLECALCIFEROL (VITAMIN D3) 1,000 UNIT TABLET PO SCH (08:10)
[2018-06-13] MEDS: METOPROLOL TART IMMED RELEASE 50 MG TABLET. PO SCH ×2 (08:10→20:20)
[2018-06-13] MEDS: ASPIRIN ENTERIC COATED 325 MG TABLET.DR. PO SCH (08:13)
[2018-06-13 08:40] LABS: PROTHROMBIN TIME PATIENT 12.2 SEC (11.7-14.0)
--- NOTE | 2018-06-13 08:48 | PDOC ---
MODERATE SEDATION ASSESSMENT RISKS/ALTERNATIVES Risks/Alternatives Risks and alternatives of this type of sedation and procedure discussed with: RISK/ALTERNATIVES: Patient H & P ON CHART H & P H & P on chart and reviewed for co-morbid conditions and appropriate labs. H&P ON CHART: Yes STATUS PREG STATUS ASSESSED: N/A MEDS/ALLERGIES REVIEWED Meds/Allergies Reviewed Medications and Allergies including time and route of recently administered narcotics and sedatives. MEDS/ALLERGIES REVIEWED: Yes ASA RATING ASA RATING: II AIRWAY ASSESSMENT Airway Assessment Airway patency, oral function limitations, presence of caps, crowns, dentures, partials, and ability to extend neck assessed. AIRWAY ASSESSMENT: Yes MALLAMPATI SCORE MALLAMPATI SCORE: II PRE-SEDATION ASSESSMENT PRE-SEDATION ASSESSMENT: Yes TINY ROBIN MD Jun 13, 2018 08:48
[2018-06-13] MEDS ORDERED: MIDAZOLAM HCL/PF 2 MG/2 ML VIAL. ONE (10:28)
[2018-06-13] MEDS ORDERED: fentaNYL PF VIAL 100 MCG/2 ML VIAL ONE ×2 (10:28→14:05)
[2018-06-13] MEDS ORDERED: LIDOCAINE 1% Multi-Dose 20 ML VIAL. ONE (10:33)
[2018-06-13] MEDS ORDERED: fentaNYL PF VIAL 100 MCG/2 ML VIAL IV ONE ×2 (10:45→14:15)
[2018-06-13] MEDS ORDERED: IOHEXOL 300 MG/ML 100ML VIAL. IART ONE (10:45)
[2018-06-13] MEDS ORDERED: MIDAZOLAM HCL/PF 2 MG/2 ML VIAL. IV ONE (10:45)
[2018-06-13] MEDS ORDERED: LIDOCAINE 1% Multi-Dose 20 ML VIAL. INJ ONE (10:45)
--- NOTE | 2018-06-13 10:50 | PDOC ---
PROGRESS NOTES History of Present Illness History of Present Illness Assessment/Plan Assessment/Plan IMPRESSION 1. Chest pain, atypical. but concerning for unstable angina Reversible defect with transient ischemic dilation suggestive of multivessel disease. Normal EF at > 60% Moderate to high risk study.for ischemia Lingular pleural parenchymal scarring and a few calcified irregular granulomas, one of which corresponds with a nodule of concern on the prior CT. No suspicious noncalcified pulmonary nodule is seen. 2. CABG 10/2017. PMC 3. Hypertension; 4. Hyperlipidemia; 5. Diabetes, 6. GERD; ON omeprazole BID 7. MORBID OBESITY 8. HYPOTHYROID STATE ON REPLACEMENT RX plan CVC ADMIT troponin series secondary prevention measures Consider GI evaluation; ABD SONO EXCLUDE GB DISEASE neg MPI 06/12 EVAL OF ischemia. abnormal LOVENOX SQ DVT PROPHYLAXIS 44 min visit time > 50% of time spent in chart review, pt care coordination, pt exam Vitals Vitals Vital Signs Date Time Temp Pulse Resp B/P (MAP) Pulse Ox O2 Delivery O2 Flow Rate FiO2 06/13/18 08:10 62 123/61 06/13/18 07:30 Room Air 06/13/18 07:00 98.1 18 96 98.1 Physical Exam General: Alert, Oriented X3, Cooperative, No acute distress Heart: Regular rate, Normal S1, Normal S2 Lungs: Clear Abdomen: Normal bowel sounds, Soft, Other (MILD RUQ PAIN WITH INHALATION) Extremities: No cyanosis Skin: No rashes Labs LABS Laboratory Tests Test 06/13/18 08:24 Prothrombin Time 12.2 SEC (11.7-14.0) Prothromb Time International Ratio 0.9 (0.8-1.1) Assessment and Plan Assessmemt and Plan Problems Medical Problems: (1) CAD (coronary artery disease) Status: Acute (2) Chest pain Status: Acute Comment Review of Relevant I have reviewed the following items asad (where applicable) has been applied. Labs Laboratory Tests Test 06/11/18 11:55 06/11/18 15:45 06/11/18 21:15 06/12/18 03:00 White Blood Count 7.7 x10^3/uL (4.0-11.0) Red Blood Count 4.91 x10^6/uL (3.50-5.40) Hemoglobin 13.8 g/dL (12.0-15.5) Hematocrit 41.8 % (36.0-47.0) Mean Corpuscular Volume 85 fL (79-100) Mean Corpuscular Hemoglobin 28 pg (25-35) Mean Corpuscular Hemoglobin Concent 33 g/dL (31-37) Red Cell Distribution Width 14.0 % (11.5-14.5) Platelet Count 287 x10^3/uL (140-400) Neutrophils (%) (Auto) 60 % (31-73) Lymphocytes (%) (Auto) 31 % (24-48) Monocytes (%) (Auto) 8 % (0-9) Eosinophils (%) (Auto) 1 % (0-3) Basophils (%) (Auto) 1 % (0-3) Neutrophils # (Auto) 4.6 x10^3uL (1.8-7.7) Lymphocytes # (Auto) 2.4 x10^3/uL (1.0-4.8) Monocytes # (Auto) 0.6 x10^3/uL (0.0-1.1) Eosinophils # (Auto) 0.1 x10^3/uL (0.0-0.7) Basophils # (Auto) 0.1 x10^3/uL (0.0-0.2) Sodium Level 140 mmol/L (136-145) Potassium Level 4.1 mmol/L (3.5-5.1) Chloride Level 103 mmol/L (98-107) Carbon Dioxide Level 26 mmol/L (21-32) Anion Gap 11 (6-14) Blood Urea Nitrogen 16 mg/dL (7-20) Creatinine 0.8 mg/dL (0.6-1.0) Estimated GFR (Cockcroft-Gault) 72.0 BUN/Creatinine Ratio 20 (6-20) Glucose Level 119 mg/dL (70-99) Calcium Level 9.0 mg/dL (8.5-10.1) Total Bilirubin 0.4 mg/dL (0.2-1.0) Aspartate Amino Transf (AST/SGOT) 19 U/L (15-37) Alanine Aminotransferase (ALT/SGPT) 23 U/L (14-59) Alkaline Phosphatase 78 U/L (46-116) Creatine Kinase 97 U/L (26-192) Creatine Kinase MB (Mass) 1.3 ng/mL (0.0-3.6) Creatine Kinase MB Relative Index 1.3 % (0-4) Troponin I Quantitative 0.020 ng/mL (0.000-0.055) 0.045 ng/mL (0.000-0.055) 0.036 ng/mL (0.000-0.055) KN-Wgj-L-Type Natriuretic Peptide 920 pg/mL (0-124) Total Protein 7.1 g/dL (6.4-8.2) Albumin 3.2 g/dL (3.4-5.0) Albumin/Globulin Ratio 0.8 (1.0-1.7) Lipase 177 U/L (73-393) Triglycerides Level 83 mg/dL (0-150) Cholesterol Level 184 mg/dL (0-200) LDL Cholesterol, Calculated 109 mg/dL (0-100) VLDL Cholesterol, Calculated 17 mg/dL (0-40) Non-HDL Cholesterol Calculated 126 mg/dL (0-129) HDL Cholesterol 58 mg/dL (40-60) Cholesterol/HDL Ratio 3.2 Test 06/13/18 08:24 Prothrombin Time 12.2 SEC (11.7-14.0) Prothromb Time International Ratio 0.9 (0.8-1.1) Laboratory Tests Test 06/13/18 08:24 Prothrombin Time 12.2 SEC (11.7-14.0) Prothromb Time International Ratio 0.9 (0.8-1.1) Medications Current Medications Aspirin (Children'S Aspirin) 324 mg 1X ONCE PO Last administered on 06/11/18at 12:29; Start 06/11/18 at 12:00; Stop 06/11/18 at 12:03; Status DC Nitroglycerin (Nitro-Bid Oint) 1 inch 1X ONCE TP ; Start 06/11/18 at 12:00; Stop 06/11/18 at 12:03; Status DC Aspirin (Ecotrin) 325 mg DAILYWBKFT PO Last administered on 06/13/18at 08:13; Start 06/12/18 at 08:00 Levothyroxine Sodium (Synthroid) 100 mcg DAILYAC PO Last administered on at 07:44; Start 06/12/18 at 07:30 Metoprolol Tartrate (Lopressor) 50 mg BID PO Last administered on 06/13/18at 08: 10; Start 06/11/18 at 21:00 Atorvastatin Calcium (Lipitor) 80 mg QHS PO Last administered on 06/12/18at 22: 08; Start 06/11/18 at 21:00 Cetirizine HCl (ZyrTEC) 10 mg DAILY PO Last administered on 06/13/18at 08:09; Start 06/11/18 at 17:30 Pantoprazole Sodium (Protonix) 40 mg DAILYAC PO Last administered on 06/13/18at 07:44; Start 06/11/18 at 18:00 Vitamin D (Vitamin D3) 2,000 unit DAILY PO Last administered on 06/13/18at 08:10 ; Start 06/12/18 at 09:00 Enoxaparin Sodium (Lovenox 40mg Syringe) 40 mg Q24H SQ ; Start 06/11/18 at 21:00 ; Stop 06/12/18 at 13:26; Status DC Regadenoson (Lexiscan) 0.4 mg 1X ONCE IV Last administered on 06/12/18at 08:30 ; Start 06/12/18 at 08:30; Stop 06/12/18 at 08:31; Status DC Enoxaparin Sodium (Lovenox 40mg Syringe) 40 mg Q24H SQ ; Start 06/12/18 at 21:00 ; Stop 06/12/18 at 23:55; Status DC Sodium Chloride 1,000 ml @ 60 mls/hr [id number] IV Last administered on at 07:40; Start 06/13/18 at 06:00 Lidocaine HCl (Xylocaine-Mpf 1% 2ml Vial) 2 ml STK-MED ONCE .ROUTE ; Start 06/13 at 07:40; Stop 06/13/18 at 07:41; Status DC Iohexol (Omnipaque 300 Mg/ml) 100 ml STK-MED ONCE .ROUTE ; Start 06/13/18 at 07: 40; Stop 06/13/18 at 07:41; Status DC Heparin Sodium/ Sodium Chloride 1,000 ml @ As Directed STK-MED ONCE .ROUTE ; Start 06/13/18 at 07:40; Stop 06/13/18 at 07:41; Status DC Fentanyl Citrate (Fentanyl 2ml Vial) 100 mcg STK-MED ONCE .ROUTE ; Start at 10:28; Stop 06/13/18 at 10:29; Status DC Midazolam HCl (Versed) 2 mg STK-MED ONCE .ROUTE ; Start 06/13/18 at 10:28; Stop 06/13/18 at 10:29; Status DC Lidocaine HCl (Lidocaine 1% 20ml Vial) 20 ml STK-MED ONCE .ROUTE ; Start at 10:33; Stop 06/13/18 at 10:34; Status DC Active Scripts Active Aspirin Ec (Aspirin) 325 Mg Tablet.dr 325 Mg PO DAILYWBKFT Metoprolol Tartrate 50 Mg Tablet 50 Mg PO BID 30 Days Reported Loratadine 10 Mg Tablet 1 Tab PO DAILY Vitamin D-3 (Cholecalciferol (Vitamin D3)) 2,000 Unit Capsule 2,000 Unit PO Omeprazole 20 Mg Capsule.dr 1 Cap PO DAILY Metformin Hcl Er (Metformin Hcl) 1,000 Mg Tab.er.24 1,000 Mg PO DAILYWBKFT Atorvastatin Calcium 80 Mg Tablet 80 Mg PO DAILY Levothyroxine Sodium 100 Mcg Tablet 100 Mcg PO DAILYAC Vitals/I & O Vital Sign - Last 24 Hours 06/12/18 06/12/18 06/12/18 06/12/18 10:53 11:39 14:45 19:20 Temp 98.8 98.7 97.9 98.8 98.7 97.9 Pulse 76 75 69 63 Resp 18 18 17 B/P (MAP) 107/65 (79) 118/58 104/62 (76) 115/58 (77) Pulse Ox 97 96 95 O2 Delivery Room Air Room Air Room Air 06/12/18 06/12/18 06/13/18 06/13/18 20:00 22:07 07:00 07:30 Temp 98.1 98.1 Pulse 63 62 Resp 18 B/P (MAP) 115/58 123/61 (81) Pulse Ox 96 O2 Delivery Room Air Room Air Room Air 06/13/18 08:10 Pulse 62 B/P (MAP) 123/61 Intake and Output 06/12/18 06/12/18 06/13/18 14:59 22:59 06:59 Intake Total 240 ml 240 ml 200 ml Balance 240 ml 240 ml 200 ml DIANNE WING MD Jun 13, 2018 10:49
[2018-06-13] MEDS ORDERED: CONTRAST GIVEN. MC PRN (11:15)
[2018-06-13] MEDS ORDERED: BIVALIRUDIN 250 MG VIAL. IV ONE (11:24)
[2018-06-13] MEDS ORDERED: HEPARIN for IV BOLUS 10,000 UNIT/10 ML VIAL. ONE ×2 (11:37→14:05)
[2018-06-13] MEDS ORDERED: HEPARIN for IV BOLUS 10,000 UNIT/10 ML VIAL. IV ONE ×2 (11:45→14:15)
[2018-06-13] MEDS ORDERED: IODIXANOL 320 MG/ML 100 ML VIAL. ONE (13:11)
[2018-06-13] MEDS ORDERED: NITROGLYCERIN 200 MCG/2 ML SYRINGE FOR CATH/VASC LAB. IART ONE (13:30)
[2018-06-13] MEDS ORDERED: TICAGRELOR 90 MG TABLET. ONE (13:52)
[2018-06-13] MEDS ORDERED: TICAGRELOR 90 MG TABLET. PO ONE ×2 (14:00→22:30)
[2018-06-13] MEDS ORDERED: IV NORMAL SALINE 1000ML BAG 1,000 ML IV ONE (14:15)
--- NOTE | 2018-06-13 16:34 | CARD ---
MR#: [id number] Date of Study: 06/13/2018 Ordering Physician: LORELEI STOLL, Referring Physician: DIANNE WING, Tech: RT Ivette (R) APPROVED REPORT Technologist: RT Ivette (R) JOSE Procedure(s) performed: MODERATE SEDATION 190 MINUTES LHC, Coronary angiography, Bypass angiography REFRIGERATION MECHANIC HELPER PCI of the LAD HISTORY The patient is a 63 year-old female with a history of : diabetes mellitus with treatment, coronary ar janes disease, hypertension, dyslipidemia. INDICATION The indication(s) include : unstable angina . C[facility] Clinical Frailty Scale [facility] Clinical Frailty Scale: Vulnerable Heart Failure Heart Failure: Yes If Yes, Newly Diagnosed: No If Yes, HF Type: Diastolic If Yes, NYHA Class: Class III PROCEDURE NARRATIVE After explaining the risks and benefits of the procedure and alternatives, informed consent was obtai stephy. The patient was brought electively to the cardiac catheterization lab in a fasting state. A brenda eout was performed confirming the patient's name, date of , procedure, and site of procedure. A ll necessary personnel were wearing the appropriate protective equipment and radiation monitor device s. (See nursing notes for medications administered). The right groin was sterilely prepped and drap ed in the usual fashion. The right groin was infiltrated with 10 mL of 2% lidocaine for subcutaneous anesthesia. A 6 F sheath was inserted into the right femoral artery without difficulty. Right and left coronary angiography was performed using a JR4 and JL4 catheter. Left ventricular end diastolic pressure was obtained with a pigtail catheter and pullback was performed. Bypass angiography was pe rformed with a JR4 and BIBIANA catheter. HEMODYNAMICS: AO: 140/89 LVEDP 7 mm Hg No gradient on LV to aortic pullback. LEFT VENTRICULOGRAM: Deferred due to known normal EF. CORONARY ANGIOGRAPHY: LM is a large caliber vessel with normal angiographic appearance. LAD is a small to moderate caliber vessel with a proximal 80% stenosis followed by a complex 99% sten osis involving the mid LAD. D1 is a small to moderate caliber vessel with an ostial 40% stenosis. LCx is a moderate caliber non-dominant vessel with normal angiographic appearance. OM1 is a moderate caliber vessel with normal angiographic appearance. RCA is a large caliber dominant vessel with a mid 99% stenosis. RPDA is probably occluded. RPL is a moderate caliber vessel with normal angiographic appearance. BYPASS ANGIOGRAPHY: CLARK to LAD is atretic and occluded. SVG to RCA is widely patent without anastomotic stenosis *Multiple injections of the subclavian artery were performed as the site of BIBIANA origin appeared to be in the axillary artery rather than the subclavian. The surgical taken down BIBIANA site was near the thy rocervical trunk and appeared to be a smaller caliber vessel than the large branch off the axillary a rtery. 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 Through a 6 Syrian EBU 3.0 guide catheter a 0.014 inch pro-wate r, Choice PT, dermal run-through wires were used in an attempt to cross the proximal occluded segment of the left anterior descending artery. After multiple attempts ultimately a helicopter pilot 200 wire was able to be advanced past the lesion with the aid of a 1.5 mm balloon for support. After intraluminal conf irmation of the wire balloon angioplasty was performed with a 1.5 x 10 and a 2.0 x 20 millimeter ball oons. Next the mid to proximal LAD was stented in overlapping fashion with a 2.5 x 38 and a 3.0 x 38 drug-eluting stent. The stents were then postdilated with a 3 mm noncompliant balloon at 18 pita. Daisy l post-PCI angiography demonstrated excellent stent expansion with FRIEDA-3 flow in the left anterior d escending artery without any evidence of guide or wire related complications. This was a complex case due to the chronic total occlusion of the LAD. Contrast load: 300 mL Radiation dose: 3.9 molina All catheter exchanges and advancements were performed over a guidewire. At case completion the righ t femoral sheath was removed and hemostasis was achieved with an Angioseal Device after limited femor al angiography confirmed adequate vessel size and anatomy. There were no acute complications. The pa tient received 180 mg of ticagrelor at case completion. Conclusion 1. Normal left ventricular filling pressure 2. One out of 2 bypass grafts patent, CLARK to LAD occluded 3. Successful REFRIGERATION MECHANIC HELPER recanalization of the LAD with implantation of overlapping 2.5 and 3.0 Alpine drug- eluting stents. Recommendations ASA 81mg daily Ticagrelor 90mg bid for at least 1 full year and transition to plavix there after for 2 years. High dose statin therapy Signed by : Leonel Qiu, Electronically Approved : 06/13/2018 16:33:34
[2018-06-13] MEDS: ATORVASTATIN CALCIUM 40 MG TABLET. PO SCH (20:20)
[2018-06-14 03:20] VITALS: BP 92/52
[2018-06-14 07:00] VITALS: BP 112/59
[2018-06-14] MEDS: LEVOTHYROXINE 100 MCG TABLET PO SCH (08:08)
[2018-06-14] MEDS: CHOLECALCIFEROL (VITAMIN D3) 1,000 UNIT TABLET PO SCH (08:08)
[2018-06-14] MEDS: ASPIRIN ENTERIC COATED 325 MG TABLET.DR. PO SCH (08:08)
[2018-06-14] MEDS: METOPROLOL TART IMMED RELEASE 50 MG TABLET. PO SCH (08:09)
[2018-06-14] MEDS: PANTOPRAZOLE 40 MG TABLET.DR. PO SCH (08:09)
[2018-06-14] MEDS: CETIRIZINE HCL 10 MG TABLET. PO SCH (08:09)
[2018-06-14] MEDS ORDERED: TICAGRELOR 90 MG TABLET. PO SCH (09:00)
[2018-06-14] MEDS ORDERED: TICA90TA PO (09:36)
--- NOTE | 2018-06-14 09:37 | PDOC3 ---
Discharge Summary Visit Information Date of Admission: Jun 11, 2018 Date of Discharge: Jun 14, 2018 Admitting Diagnosis Comment: CAD status post [facility] 1 stent to LAD Hypertensive urgency POA Final Diagnosis Problems Medical Problems: (1) CAD (coronary artery disease) Status: Acute (2) Chest pain Status: Acute Brief Hospital Course Allergies Allergies Coded Allergies Type Severity Reaction Last Updated Verified codeine Allergy Intermediate Rash 11/07/17 Yes Vital Signs Vital Signs Date Time Temp Pulse Resp B/P (MAP) Pulse Ox O2 Delivery O2 Flow Rate FiO2 06/14/18 08:09 67 112/59 06/14/18 07:00 98.1 18 98 Room Air 98.1 06/13/18 14:16 2.0 Lab Results Laboratory Tests Test 06/13/18 08:24 Prothrombin Time 12.2 SEC (11.7-14.0) Prothromb Time International Ratio 0.9 (0.8-1.1) Brief Hospital Course Ms. Jackson is a 63 old very pleasant white female, admitted for chest pain and hypertensive urgency. Needed 1 stent to LAD. New medication is Brilinta. Already on beta jerilyn and GABE inhibitor at home Follow up with applied psychology professor instructed Procedures performed [facility], 06/13/18 Disposition home independent Discharge Information Condition at Discharge: Improved, Stable Follow Up: Weeks (cards as instructed) Disposition/Orders: D/C to Home Scheduled Aspirin (Aspirin Ec) 325 Mg Tablet., 325 MG PO DAILYWBK, #120 Ref 3 Prescribed by: ALAN MEYERS on 11/15/17 1053 Last Action: Continued on 06/11/181708 by Gamaliel Pantoja Atorvastatin Calcium (Atorvastatin Calcium) 80 Mg Tablet, 80 MG PO DAILY for FOR CHOLESTEROL, #30 Ref 0 (Reported) Entered as Reported by: LORI GUZMÁN on 11/07/17 0721 Last Action: Converted on 06/11/181708 by Gamaliel Pantoja Levothyroxine Sodium (Levothyroxine Sodium) 100 Mcg Tablet, 100 MCG PO DAILYAC for THYROID SUPPLEMENT, #30 Ref 0 (Reported) Entered as Reported by: LORI GUZMÁN on 11/07/17 0721 Last Action: Continued on 06/11/181708 by Gamaliel Pantoja Loratadine (Loratadine) 10 Mg Tablet, 1 TAB PO DAILY, #30 Ref 5 (Reported) Entered as Reported by: LORI GUZMÁN on 11/07/17720 Last Action: Converted on 06/11/181708 by Gamaliel Pantoja Metformin Hcl (Metformin Hcl Er) 1,000 Mg Tab.er.24, 1,000 MG PO DAILYWBKFT for ANTI-DIABETIC, Ref 0 (Reported) Entered as Reported by: LORI GUZMÁN on 11/07/17720 Metoprolol Tartrate (Metoprolol Tartrate) 50 Mg Tablet, 50 MG PO BID for 30 Days , #60 Ref 2 Prescribed by: ALAN MEYERS on 11/15/171052 Last Action: Continued on 06/11/181708 by Gamaliel Pantoja Omeprazole (Omeprazole) 20 Mg Capsule.dr, 1 CAP PO DAILY, #30 Ref 5 (Reported) Entered as Reported by: LORI GUZMÁN on 11/07/17720 Last Action: Converted on 06/11/181708 by Gamaliel Pantoja Ticagrelor (Brilinta) 90 Mg Tablet, 90 MG PO BID for cad MDD 1, #60 Prescribed by: BRIT ALCARAZ on 06/14/18 0936 Miscellaneous Medications Cholecalciferol (Vitamin D3) (Vitamin D-3) 2,000 Unit Capsule, 2,000 UNIT PO, ( Reported) Entered as Reported by: LORI GUZMÁN on 11/07/17720 Last Action: Converted on 06/11/181708 by BRIT Sesay MD Jun 14, 2018 09:37
[2018-06-14 11:00] VITALS: BP 113/53
--- NOTE | 2018-06-14 13:25 | PDOC ---
CARDIO Progress Notes Date and Time Date of Service 06/14/2018 Time of Evaluation 1310 Subjective Subjective: No Chest Pain, No shortness of breath, No Palpitations Vitals Vitals Vital Signs Date Time Temp Pulse Resp B/P (MAP) Pulse Ox O2 Delivery O2 Flow Rate FiO2 06/14/18 11:00 97.3 67 17 113/53 (73) 97 Room Air 97.3 06/14/18 08:00 2.0 Weight Weight [ ] Input and Output Intake and Output Intake and Output 06/14/18 06:59 Intake Total 400 ml Balance 400 ml Intake Oral 400 ml # Voids 3 Laboratory Labs Laboratory Tests Test 06/13/18 13:44 Activated Clotting Time 221 sec (92-181) Physical Exam HEENT: Neck Supple W Full Motion Chest: Symmetric LUNGS: Clear to Auscultation Heart: S1S2, RRR (sr) Abdomen: Soft N/T Extremities: No Calf Tenderness Neurology: alert, oriented, follow commands Other Exams right groin arteriotomy site intact, no swelling, erythema, neurovascular status to katya LE intact Assessment Assessment 1. Unstable angina: S/P PCI/PRISCILLA with LEATHER FITTER recanalization of the LAD 2. CAD s/p CABG 10/2017. EF nml 3. Hypertension; controlled 4. Hyperlipidemia 5. DM2 Recommendations 1. ASA/brilinta. 1 mo supply for brilinta and 1 month free card given. will consider transitioning to plavix if unable to afford further brilinta 2. Secondary prevention measures. Encouraged cardiac rehab 3. Follow up in 4 weeks. 4. Currently on metoprolol BP at marginal end. Will reeval for ACEi or ARB as outpt. BRAXTON LEE APRN Jun 14, 2018 13:25
--- NOTE | 2018-06-14 13:53 | NUR ---
PATIENT DISCHARGED TO HOME. DISCHARGE INSTRUCTIONS GIVEN AND PATIENT VERBALIZED UNDERSTANDING. PIV AND HEART MONITOR REMOVED. ESCORTED PATIENT TO FRONT ENTRANCE INTO A PRIVATE VEHICLE.
== END 2018-06-14 13:52 | disposition home or self-care (01) | DRG 247 ==
LOC: ER 11:25 → OBSVTOIN 13:00 → 2 SOUTH 13:00
PROVIDERS: ADMIT Family Medicine; ATTEND Family Medicine
PROC: 027035Z Dilation of Coronary Artery, One Artery with Two Drug-eluting Intraluminal Devices, Percutaneous Approach (ICD-10-PCS; principal; 2018-06-13)
PROC: 4A023N7 Measurement of Cardiac Sampling and Pressure, Left Heart, Percutaneous Approach (ICD-10-PCS; 2018-06-13)
PROC: B2111ZZ Fluoroscopy of Multiple Coronary Arteries using Low Osmolar Contrast (ICD-10-PCS; 2018-06-13)
PROC: B2131ZZ Fluoroscopy of Multiple Coronary Artery Bypass Grafts using Low Osmolar Contrast (ICD-10-PCS; 2018-06-13)
DX: T82.858A Stenosis of other vascular prosthetic devices, implants and grafts, initial encounter (principal); I25.110 Atherosclerotic heart disease of native coronary artery with unstable angina pectoris; I16.0 Hypertensive urgency; R07.89 Other chest pain; E66.01 Morbid (severe) obesity due to excess calories; E11.9 Type 2 diabetes mellitus without complications; I25.82 Chronic total occlusion of coronary artery; E78.00 Pure hypercholesterolemia, unspecified; E78.5 Hyperlipidemia, unspecified; M19.90 Unspecified osteoarthritis, unspecified site; E89.0 Postprocedural hypothyroidism; I10 Essential (primary) hypertension; K21.9 Gastro-esophageal reflux disease without esophagitis; K76.0 Fatty (change of) liver, not elsewhere classified; Y83.2 Surgical operation with anastomosis, bypass or graft as the cause of abnormal reaction of the patient, or of later complication, without mention of misadventure at the time of the procedure; Y92.89 Other specified places as the place of occurrence of the external cause; Z82.49 Family history of ischemic heart disease and other diseases of the circulatory system; Z95.1 Presence of aortocoronary bypass graft; Z68.33 Body mass index [BMI] 33.0-33.9, adult; Z79.899 Other long term (current) drug therapy; Z88.5 Allergy status to narcotic agent
CPT/HCPCS: 36415; 71260; 76700; 78452; 80053; 80061; 82553; 83690; 83880; 84484; 85025; 85347; 85610; 92928; 93005; 93017; 93459; 96374; 99152; 99153; A9500; C1713; C1725; C1760; C1769; C1887; C1892; G0269; J1644; J2250; J2785; J3010; J3490; J7030; Q9967; 99285-25; C1771

== ENCOUNTER → 2020-06-07 | Outpatient (CLI) | payer MEDICARE ==
[~2020-06-07] MED LIST changes: -AMIO200T4 PO; +AMIO200T6 PO; +LORA-169 PO; -LORA10TA55 PO; -OMEP20CA10 PO; +OMEP20CA16 PO; +TICA90TA PO
--- NOTE | 2020-06-07 08:30 | KCIC ---
EXAM: DUAL ENERGY X-RAY ABSORPTIOMETRY (DEXA). HISTORY: Postmenopausal screening. FINDINGS: The lowest measured T-score is -0.3 in the left hip, based on a bone mineral density of 0.9 04 g/cm^2. Refer to the worksheets for full detail. No comparison examinations are available. IMPRESSION: 1. Normal. Bone mineral density yields a T-score of -1.0 or greater. Fracture risk is low. 2. FRAX report: Not calculated. METHODOLOGY: Dual energy x-ray absorptiometry was performed to measure bone mineral density. The foll owing analysis is based on the 2019 Official Positions of the International Society for Clinical Dens itometry: Measurements of the hips and the average of L1-L4 are preferred. When the spine and/or hip cannot be feasibly measured or interpreted, or in the setting of hyperparathyroidism, distal radial bone minera l density may be measured. The lumbar spine T-score is based on the average bone mineral density of L1-L4. In the setting of art ifact or anatomic abnormality, some lumbar levels may be excluded, and the remaining levels used for calculation. A single lumbar level is not used for diagnosis, and if only a single level is available for assessment, another anatomic site will be used to assign a diagnosis. The hip T-score is based on the bone mineral density measurement of the femoral neck or total proxima l femur of either side, whichever is lowest. Bilateral mean values are not used for diagnosis. The forearm T-score is derived from 33% of the distal radius of the nondominant forearm. Electronically signed by: Marsha Valle MD (06/07/2020 8:28 AM) [id number]
== END ==
LOC: KCIC DEXA 07:53
PROVIDERS: ATTEND Registered Nurse
DX: Z78.0 Asymptomatic menopausal state (principal)
CPT/HCPCS: 77080